=== PATIENT | male | born 1980 | race Two or more races ===

== ENCOUNTER 2022-04-26 23:06 | Emergency (ER) | payer OTHER, SELFPAY ==
--- NOTE | ~2022-04-26 | XR_ITS ---
EXAMINATION: XR KNEE, RIGHT CLINICAL INFORMATION: Pain COMPARISON: None TECHNIQUE: Four views of the right knee. FINDINGS: No fracture or dislocation. Small joint effusion. Alignment is anatomic. Joint spaces are well maintained. No abnormal soft tissue calcification. XR/XR knee RT 2V IMPRESSION: No acute fracture or dislocation. Small knee joint effusion.
[2022-04-26 23:11] VITALS: BP 146/81; PULSE 74; RESP 16; TEMP 36.5; O2SAT 97; BMI 26.6
--- NOTE | 2022-04-27 04:51 | ED.EXTPRO ---
HPI - Extremity Problem General Chief complaint: Extremity Problem Stated complaint: post op, pinching pain in site Time Seen by Provider: 04/27/22 01:20 Source: patient Mode of arrival: wheelchair Limitations: no limitations History of Present Illness HPI Narrative: Patient comes to the emergency room complaining of right knee pain. States that he has had pain for for 5 months continuously. Patient states that in [place] he had an knee surgery done. Since then he has been hurting. Patient denies any recent injury or fall. Patient states that he moved from [place] approximately 1 month ago. Patient denies any fever chills. Related Data Previous Rx's Medication Instructions Recorded ibuprofen 400 mg tablet 400 mg PO TID PRN pain #20 tabs 04/27/22 Allergies Allergy/AdvReac Type Severity Reaction Status Date / Time shellfish derived Allergy Unknown UNKNOWN Unverified 05/12/20 15:15 [SHELLFISH DERIVED] PILESPSLINE Allergy Unknown UNKNOWN Uncoded 05/12/20 15:15 Review of Systems Review of Systems: Constitutional : No Weight loss, No Fever, No Chills, No Night Sweats, No Fatigue, No Malaise ENT/Mouth : No Hearing loss, No Ear Pain, No Nasal Congestion, No Sinus Pain, No Hoarseness, No sore throat, No Rhinorrhea, No Swallowing Difficulty Eyes: No Eye Pain, No Swelling, No Redness, No Foreign Body, No Discharge, No Vision Changes Cardiovascular : No Chest Pain, No SOB, No Dyspnea on Exertion, No Orthopnea, No Edema, No Palpitations Respiratory : No Cough, No Sputum, No Wheezing, No Smoke Exposure, No Dyspnea Gastrointestinal : No Nausea, No Vomiting, No Diarrhea, No Constipation, No abdominal Pain, No Hematochezia, No Melena Genitourinary : no irregular bleeding, No Dysuria, No Urinary Frequency, No Hematuria, No Urinary Incontinence, No Urgency, No Flank Pain, No Urinary Flow Changes, No Hesitancy Musculoskeletal : Complaining of chronic right knee pain, No Myalgias, No Joint Swelling Skin : No Skin Lesions, No rash Neuro : No Weakness, No Numbness, No Paresthesias, No Loss of Consciousness, No Dizziness, No Headache Psych : No Anxiety/Panic, No Depression, No SI/HI/AH/VH, No Social Issues, Heme/Lymph: No Bruising, No Bleeding,No Lymphadenopathy Endocrine : No Polyuria, No Polydipsia, No Temperature Intolerance ON LICENSE OF [facility] Social History Social History Advance Directives: No Advance Directives Information Provided: Yes Physical Exam Vital Signs: Vital Signs: Last Vital Signs Temp 97.7 F 04/26/22 23:11 Pulse 74 04/26/22 23:11 Resp 16 04/26/22 23:11 BP 146/81 H 04/26/22 23:11 Pulse Ox 97 04/26/22 23:11 O2 Del Method 04/26/22 23:11 BMI result Body Mass Index 26.6 Const: Other: Appearance: Alert. Oriented X3. No acute distress. Eyes: Pupils equal, round and reactive to light. ENT: Pharynx normal. Neck: Normal inspection. Neck supple. No lymph nodes noted. No crepitus CVS: Normal heart rate and rhythm. Pulses normal. Normal S1 and S2 Respiratory: No respiratory distress. Breath sounds normal. No Wheezing. No rales Abdomen: Soft and nontender. No rigidity. No distention. Skin: Skin warm and dry. Normal skin color. Normal skin turgor. Extremities: No lower extremity edema. Patient's right knee is mildly swollen. Patient is able to flex and extend the knee with normal range of motion, no erythema, no additional warmth, no significant pain to palpation over the knee. Neuro: Oriented X 3. No motor deficit. No sensory deficit. Moving all extremities. No slurred speech. CN 2 through 12 grossly intact Psych: calm, cooperative, normal affect Course Course Course Narrative: Based on physical exam, septic joint is not suspected. This has been going on for approximately 5 months now. I discussed with the patient that it is likely that he will need another MRI, and orthopedics follow-up and possibly physical therapy. Patient given the phone number for Orthopedics. At this time, there was not enough fluid to be drained from the knee. MDM - Extremity (Nontraumatic) Imaging Data Knee x-ray: Radiologist's impression: FINDINGS: No fracture or dislocation. Small joint effusion. Alignment is anatomic. Joint spaces are well maintained. No abnormal soft tissue calcification.? XR/XR knee RT 2V IMPRESSION: No acute fracture or dislocation. Small knee joint effusion. Discharge Plan Discharge Clinical Impression: Chronic pain of right knee Patient Disposition: Home, Self-Care Instructions: Knee Pain (ED), Arthralgia (ED) Additional Instructions: Please follow-up with your primary care physician tomorrow. If you have any worsening or new symptoms, please return to the emergency room or call 911 Prescriptions: New ibuprofen 400 mg tablet 400 mg PO TID PRN (Reason: pain) Qty: 20 0RF Referrals: Fredis Fortune PA-C [Physician [facility]] - 3 days
== END 2022-04-27 05:02 | disposition home or self-care (01) ==
PROVIDERS: Emergency Provider Emergency Medicine; PCP Internal Medicine
DX: M25.561 Pain in right knee (principal); Z79.899 Other long term (current) drug therapy
CPT/HCPCS: 73560; 99283

== ENCOUNTER 2022-05-10 | Outpatient (REF) | payer OTHER, SELFPAY ==
--- NOTE | ~2022-05-10 | XR_ITS ---
EXAMINATION: XR KNEE AP STANDING XR KNEE, RIGHT CLINICAL INFORMATION: Right knee pain COMPARISON: Radiographs right knee 04/27/2022 TECHNIQUE: Standing AP view of both knees is performed along with axial patellar view of the right knee. FINDINGS: Bony mineralization appears normal. There is borderline narrowing right medial knee joint compartment. No subchondral sclerosis or erosive change or chondrocalcinosis. Axial view right patella shows no joint narrowing or lateralization or tilting. AP view left knee is unremarkable. XR/XR knee RT 1V IMPRESSION: -Borderline narrowing right medial knee joint compartment. -No erosive change, subchondral sclerosis, or chondrocalcinosis.
--- NOTE | ~2022-05-10 | XR_ITS ---
EXAMINATION: XR KNEE AP STANDING XR KNEE, RIGHT CLINICAL INFORMATION: Right knee pain COMPARISON: Radiographs right knee 04/27/2022 TECHNIQUE: Standing AP view of both knees is performed along with axial patellar view of the right knee. FINDINGS: Bony mineralization appears normal. There is borderline narrowing right medial knee joint compartment. No subchondral sclerosis or erosive change or chondrocalcinosis. Axial view right patella shows no joint narrowing or lateralization or tilting. AP view left knee is unremarkable. XR/XR knee standing BI IMPRESSION: -Borderline narrowing right medial knee joint compartment. -No erosive change, subchondral sclerosis, or chondrocalcinosis.
== END 2022-05-10 00:01 | disposition home or self-care (01) ==
LOC: HO.HOSX
PROVIDERS: Visit Provider Physician Assistant
DX: M23.91 Unspecified internal derangement of right knee (principal)
CPT/HCPCS: 73560; 73565; 99202

== ENCOUNTER → 2022-06-13 14:45 | Outpatient (BNVA) | payer OTHER, SELFPAY | PROVIDERS: PCP Internal Medicine; Visit Provider Anesthesiology | DX: M23.91 Unspecified internal derangement of right knee (principal); M17.11 Unilateral primary osteoarthritis, right knee; M25.561 Pain in right knee | CPT/HCPCS: 99202 ==

== ENCOUNTER 2022-06-27 13:00 | Outpatient (RCR) | payer MEDICAID, OTHER, SELFPAY ==
--- NOTE | 2022-06-05 13:07 | MHC.PT.EP ---
[facility] [place] Office [place] Office [place] Office [address] [phone] F: [phone] F: [phone] F: [phone] F: [phone] Physical Therapy Plan of Care Date of Evaluation: Date of Surgery: Diagnosis: INTERNAL DERANGEMENT Rt KNEE Assessment: 42 YO MALE REF TO PT FOR Rt KNEE INTERNAL DERANGEMENT, W INITIAL TRAUMA IN 2004 AND ARTHROSCOPIC PROCEDURE IN [place] 4-5 MONTHS AGO. HE PRESENTS THIS AM IN A Rt KNEE DON [facility] BRACE. 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 OBJECTIVE FINDINGS: LIMITED ROM Rt KNEE, DECR HIP FLEXIB, (+) LUMBOPELVIC/ LEFT LE STRENGTH DEFICITS, DECR Rt LE PROPRIOCEPTION, AND PAIN IN GENERAL Rt PERIPATELLAR AREA AND INFRAPATELLAR REGION. FUNCTIONALLY, Pt HAS DECR NORA TO STANDING, WALKING > 10 MIN, SQUATTING, AND STAIR MGMT. Pt WOULD BENEFIT FROM PT AT THIS TIME TO DEV A PROGR HEP, ADDRESS PAIN MGMT, IMPROVE STRENGTH AND STABILITY, AND OBTAINING MAXIMAL LEVEL OF FUNCTIONAL INDEPENDENCE. Frequency and Duration: The patient will be seen 2 x WK x 5 WKS Short Term Goals: *Pt'S Rt KNEE PAIN DECR TO 2-3/10 *Pt DEMON FULL Rt KNEE FLEX AND KNEE FLEX TO 120* *IMPROVE EFFICIENCY OF GAIT MECH ON LEVEL AND STAIRS Care Home Goals: *Pt INDEP W PROGR HEP AND SELF-SX MGMT TECH *Pt RESUME REG ADLs AND RTW, EVIDENT W IMPROVED LEFI SCORE *Pt DEMON WFL FUNCTIONAL SQUAT *Pt IMPROVE Rt LE STRENGTH BY AT LEAST 1/2 TO 1 GRADE Treatment Plan: Modalities to reduce pain, spasms and effusion. Manual therapy to restore motion and function. Therapeutic exercise to improve strength and flexibility. Neuromuscular re-education for posture and balance. Therapeutic activities to return to functional activities of daily living. Electronically signed by: EVGENY ROBERTSON,PT Please sign and return to therapist. Thank you for your referral.
--- NOTE | 2022-07-09 13:19 | MHC.PT.DC ---
[facility] [place] Office [place] Office [place] Office [address] [phone] F: [phone] F: [phone] F: [phone] F: [phone] Physical Therapy Discharge Report Diagnosis: INTERNAL DERANGEMENT Rt KNEE Date of Surgery: Date of Evaluation: 06/05/22 Date of Discharge: 07/09/22 Treatments to Date: 5 Cancellations to Date: No Shows to Date: 4 Discharge Status: Improved Function Patient Elected to Stop Visit Non-compliance Discharge Summary: IN PT WE WERE FOCUSED ON THER EXER TO INCR Rt LUMBOPELVIC STAB/ GLUTE/ QUAD STRENGTH, AND Pt WAS ABLE TO PERFORM THESE EXER W/O Rt KNEE SXS OR PFPS- HE DEMON MORE EFFICIENT GAIT AND FUNCT MOB DESPITE ELEV SUBJECTIVE PAIN- Pt DID NOT ATTEND LAST FEW SCHED PT APPTS, DESPITE PHONE MESSAGES AND REMINDERS- HE DID NOT MEET HIS GOALS AT THIS TIME Electronically signed by: Nara Aceves Please sign and return to therapist. Thank you for your referral.
== END 2022-07-09 13:20 | disposition home or self-care (01) ==
LOC: HO.PT 13:00
PROVIDERS: PCP Internal Medicine Geriatric Medicine; Visit Provider Physician Assistant
DX: M23.91 Unspecified internal derangement of right knee (principal)
CPT/HCPCS: 97110; 97140; 97162; 97530

== ENCOUNTER 2022-07-10 06:15 | Outpatient (REF) | payer MEDICAID, SELFPAY | END 2022-07-10 06:16 | disposition home or self-care (01) | LOC: CF 06:15 | PROVIDERS: Visit Provider Anesthesiology | DX: M23.91 Unspecified internal derangement of right knee (principal); M17.11 Unilateral primary osteoarthritis, right knee | CPT/HCPCS: 64447; 76942 ==

== ENCOUNTER → 2022-08-14 13:04 | Outpatient (BNVA) | payer MEDICAID, SELFPAY | PROVIDERS: PCP Internal Medicine Geriatric Medicine; Visit Provider Physician Assistant | DX: M25.562 Pain in left knee (principal); M25.561 Pain in right knee; G89.29 Other chronic pain | CPT/HCPCS: 99202 ==

== ENCOUNTER 2022-08-19 16:29 | Emergency (ER) | payer MEDICAID, SELFPAY ==
[2022-08-19 16:32] VITALS: BP 143/87; PULSE 94; RESP 18; TEMP 36.8; O2SAT 98; BMI 29.9
--- NOTE | 2022-08-19 17:14 | ED.URI ---
HPI - URI/Sore Throat General Chief Complaint: Upper Respiratory Symptoms Stated Complaint: abd pain, coughing Time Seen by Provider: 08/19/22 17:13 Source: patient and family Mode of arrival: ambulatory Limitations: no limitations History of Present Illness HPI Narrative: 42-year-old male presents with upper respiratory symptoms, coughing, nausea, and episode of vomiting, and right-sided rib pain. Patient states that he thinks that he broke some ribs while coughing. He does report marijuana use, and coughs because of smoking. He does not report fevers or chills, abdominal pain or distention, chest pressure or palpitations, or weakness. MD elicited complaint: cough, rhinorrhea and nasal congestion Onset (ago): day(s) Consistency: progressively worsening Severity: mild Description of mucous: clear Able to tolerate fluids by mouth: Yes Exacerbating factors: deep breaths Relieving factors: nothing Associated symptoms: rhinorrhea, nasal congestion, cough and chest pain Treatments prior to arrival: none Related Data Home Medications Medication Instructions Recorded Confirmed albuterol sulfate 90 mcg/actuation 2 puff inhalation Q4-6H PRN 08/14/22 aerosol inhaler fluticasone propionate 44 2 puff inhalation BID 08/14/22 mcg/actuation HFA aerosol inhaler (Flovent HFA) Previous Rx's Medication Instructions Recorded ibuprofen 800 mg tablet 800 mg PO Q8H PRN for pain #90 tabs 06/12/22 Allergies Allergy/AdvReac Type Severity Reaction Status Date / Time shellfish derived Allergy Unknown UNKNOWN Unverified 08/14/22 13:19 [SHELLFISH DERIVED] PILESPSLINE Allergy Unknown UNKNOWN Uncoded 08/14/22 13:19 Review of Systems Review of Systems: Constitutional: No fever, no Chills, positive fatigue, positive Malaise ENT/Mouth: Now sore throat, positive runny nose Eyes: No Discharge Cardiovascular: No Chest wall Pain, No SOB Respiratory: Positive Cough, No Sputum, No Wheezing, No Dyspnea Gastrointestinal: No Nausea, No Vomiting, No Diarrhea Musculoskeletal: positive Myalgia Skin: No rash Neuro: No Headache Yes all other systems are reviewed and are negative [facility] Past Medical History Attestation statement: The following information was validated with the patient. 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 Oriented X3. No acute distress. Eyes: Pupils equal, round and reactive to light. ENT: Pharynx normal. Neck: Normal inspection. Neck supple. CVS: Normal heart rate and rhythm. Pulses normal. Respiratory: No respiratory distress. Lung sounds clear to auscultation all lobes. Abdomen: Soft and nontender. Skin: Skin warm and dry. Normal skin color. Normal skin turgor. Extremities: No lower extremity edema. Bilateral lower extremity orthotics or chronic knee pain. Strength 5/5 to all extremities. Neuro: No motor deficit. No sensory deficit. Cranial nerves 2-12 intact. Course Course Course Narrative: 42-year-old male presents with upper respiratory symptoms, an episode of vomiting, and right-sided chest wall pain. Patient feels like he broke ribs from coughing. Does report marijuana use, and states that he does not drink water. Will order chest x-ray and test for COVID influenza RSV. I did discuss the importance of water 18:26 chest x-ray is negative for acute findings. COVID influenza RSV are negative. Plan of care to discharge home supportive measures. Patient verbalized understanding of and agrees to plan of care discharge home. Verbalized understanding of signs and symptoms indicating need for emergent intervention. Medications Administered Discontinued Medications Generic Name Dose Route Start Last Admin Trade Name Freq PRN Reason Stop Dose Admin Acetaminophen 650 mg 08/19/22 17:29 08/19/22 18:04 Acetaminophen 325 Mg Tablet PO 08/19/22 17:30 650 mg ONCE ONE Administration Medical Decision Making Differential Diagnosis Differential Diagnoses: The differential diagnosis associated with the presentation includes COVID, influenza, pneumonia, RSV, rib fracture, pneumothorax, hemothorax Admission/Observation Consideration of admission/observation: Escalation of care including admission/observation considered If patient has acute findings will consider Lab Data MDM Lab Attestation statement: I reviewed the patient's lab results. Labs: Lab Results 08/19/22 Range/Units 17:25 Influenza Type A (PCR) NEGATIVE (Negative) Influenza Type B (PCR) NEGATIVE (Negative) RSV RNA Qual (PCR) NEGATIVE (Negative) SARS-CoV-2 RNA (RT-PCR) NEGATIVE (Negative) Independent Interpretation I performed an independent interpretation of an: Plain X-Ray Radiology Impression Discussion of test interpretation with radiology: I have reviewed the radiologist's reading. Radiologist Impression: EXAMINATION: XR RIBS, BILATERAL CLINICAL INFORMATION: Rib pain. Right-sided pain. COMPARISON: None TECHNIQUE: 3 views of the bilateral ribs were obtained along with a frontal view of the chest. FINDINGS: Normal appearance of the cardiomediastinal structures. No effusions or pneumothoraces. No focal pulmonary consolidation. Normal pattern of pulmonary vasculature. RIBS: No rib fractures or suspicious rib lesions identified. XR/XR ribs BI min 4V w CXR1V IMPRESSION: 1.? No acute cardiopulmonary abnormalities. 2.? No rib fractures identified. Independent Historian Clinical information obtained from an independent historian. History obtained from or confirmed by: Spouse Discharge Plan Discharge Clinical Impression: Viral infection Patient Disposition: Home, Self-Care Instructions: Viral Syndrome (ED) Additional Instructions: You were evaluated for upper respiratory symptoms. Your COVID influenza RSV test are negative. Your chest x-ray is negative for rib fracture This illness may take months to resolve. Alternate Tylenol 650 mg every 6 hours and Motrin 600 mg every 6 hours as needed for pain and fever management. Write down what time he take these medications to prevent accidental overdose. Drink plenty of fluids. Please drink more water. Thank you for choosing this emergency department for evaluation. Please follow-up with primary care physician as needed. Return to the emergency department for any new, concerning, or worsening symptoms. Prescriptions: No Action ibuprofen 800 mg tablet 800 mg PO Q8H PRN (Reason: for pain) Qty: 90 0RF fluticasone propionate [Flovent HFA] 44 mcg/actuation HFA aerosol inhaler 2 puff inhalation BID Rx Instructions: administer with spacer albuterol sulfate 90 mcg/actuation HFA aerosol inhaler 2 puff inhalation Q4-6H PRN Interventions: ED Discharge Assessment Last Done: 08/19/22 18:59 Discharge Date/Time: 08/19/22 19:00
--- NOTE | 2022-08-19 18:05 | PC.NURSE ---
patient a&ox3, medicated for rt flank pain 05/05, family at bedside, will continue to monitor
[2022-08-19 18:10] LABS: Influenza A PCR NEGATIVE (Negative); Influenza B PCR NEGATIVE (Negative); Resp Syncy Virus RNA Qual PCR NEGATIVE (Negative); SARS COV2 PCR INHOUSE NEGATIVE (Negative)
--- NOTE | 2022-08-19 19:00 | PC.NURSE ---
patients pain reduced to 3/10 prior to discharge as it was not assessable
== END 2022-08-19 19:00 | disposition home or self-care (01) ==
PROVIDERS: Nurse Practitioner Family; Emergency Provider Internal Medicine
DX: B34.9 Viral infection, unspecified (principal); R05.9 Cough, unspecified; Z20.822 Contact with and (suspected) exposure to COVID-19; F17.210 Nicotine dependence, cigarettes, uncomplicated; Z71.6 Tobacco abuse counseling; Z79.899 Other long term (current) drug therapy
CPT/HCPCS: 0241U; 71111; 99283

== ENCOUNTER → 2022-09-05 15:47 | Outpatient (BNVA) | payer MEDICAID, SELFPAY | PROVIDERS: Visit Provider Anesthesiology | DX: M23.91 Unspecified internal derangement of right knee (principal); M17.11 Unilateral primary osteoarthritis, right knee; M25.561 Pain in right knee; M46.1 Sacroiliitis, not elsewhere classified; M53.3 Sacrococcygeal disorders, not elsewhere classified | CPT/HCPCS: 99212 ==

== ENCOUNTER 2022-09-11 06:32 | Outpatient (REF) | payer MEDICAID, SELFPAY ==
--- NOTE | ~2022-09-11 | FL_ITS ---
EXAMINATION: XR FLUOROSCOPY WITH IMAGES CLINICAL INFORMATION: Sacrococcygeal disorders COMPARISON: None. TECHNIQUE: Fluoroscopy Supervised By: Dr. Vu Cabello. Fluoroscopy Time: 0.3. Cumulative Dose: 4.83 mGy. DAP: 1.31 Gycm2. Images: 2. FL/FL guidance in treatment room FINDINGS/IMPRESSION: Fluoroscopic spot images showing placement of the needle and contrast injection into the sacroiliac joint. The films are labeled right and left.
== END 2022-09-11 06:33 | disposition home or self-care (01) ==
LOC: CF 06:32
PROVIDERS: Visit Provider Anesthesiology
DX: M46.1 Sacroiliitis, not elsewhere classified (principal); M53.3 Sacrococcygeal disorders, not elsewhere classified
CPT/HCPCS: 27096

== ENCOUNTER → 2022-09-13 10:39 | Outpatient (BNVA) | payer MEDICAID, SELFPAY | PROVIDERS: Visit Provider Anesthesiology | DX: Z13.89 Encounter for screening for other disorder (principal) ==

== ENCOUNTER 2022-09-27 19:05 | Outpatient (REF) | payer MEDICAID, SELFPAY ==
--- NOTE | ~2022-09-27 | MR_ITS ---
MR LUMBAR SPINE WITHOUT IV CONTRAST CLINICAL INFORMATION: Spondylosis without myelopathy or radiculopathy/lumbar region. COMPARISON: None available. TECHNIQUE: MRI of the lumbar spine was obtained using routine sequences without contrast. FINDINGS: There are 5 nonrib-bearing lumbar-type vertebral bodies. Lumbar alignment is normal. The vertebral body heights are maintained. Disc lines are preserved and the discs remain well-hydrated. There is no bone marrow edema. There are no acute fractures. Conus terminates at the L1 level. Small chronic lower endplate Schmorl's nodes at T12 and L1. Small right renal cyst. Hypertrophic degenerative changes across the SI joints bilaterally. L1-L2: Disc contour is normal. No central canal stenosis and no foraminal stenosis. L2-L3: Disc contour is normal. Mild bilateral facet arthropathy and ligamentum flavum thickening. No central canal stenosis and no foraminal stenosis. L3-L4: Small annular disc bulge and mild bilateral facet arthropathy. No central canal stenosis and no foraminal stenosis. L4-L5: Diffuse annular disc bulge and moderate bilateral facet arthropathy and ligamentum flavum thickening. No central canal stenosis. Mild foraminal encroachment bilaterally. L5-S1: Diffuse annular disc bulge and moderate bilateral facet arthropathy. No central canal stenosis. There is mild foraminal encroachment bilaterally. MR/MR lumbar spine wo con IMPRESSION: Mild to moderate spondylitic changes throughout the lumbar spine. There is no severe central canal stenosis and there is no severe foraminal stenosis within the lumbar spine.
== END 2022-09-27 19:06 | disposition home or self-care (01) ==
LOC: HO.MRI 19:05
PROVIDERS: Visit Provider Anesthesiology
DX: M47.816 Spondylosis without myelopathy or radiculopathy, lumbar region (principal)
CPT/HCPCS: 72148

== ENCOUNTER 2023-07-30 10:07 | Outpatient (REF) | payer MEDICAID, SELFPAY ==
[2023-07-30 10:56] LABS: MANUAL DIFF FLAG NO
[2023-07-30 11:10] LABS: Basophils Absolute Auto 0.1 X10*3/uL (0.0-0.2); Basophils Percent Auto 0.8 % (0-2); Eosinophils Absolute Auto 0.7 X10*3/uL (0.0-0.4); Eosinophils Percent Auto 6.3 % (0-4); Hematocrit 43.2 % (42.0-52.0); Hemoglobin 14.1 g/dl (14.0-18.0); Imm Gran Abs Auto 0.06 X10*3/uL (0.00-0.03); Imm Gran Pct Auto 0.5 % (0.0-0.4); Lymphocytes Absolute Auto 3.9 X10*3/uL (1.2-4.9); Lymphocytes Percent Auto 33.2 % (20-40); Mean Corpuscular HGB Conc 32.6 g/dl (31.0-36.0); Mean Corpuscular Hemoglobin 27.4 pg (27.0-33.0); Mean Corpuscular Volume 83.9 fL (80.0-98.0); Mean Platelet Volume 9.1 fL (9.4-12.4); Monocytes Absolute Auto 1.4 X10*3/uL (0.1-1.2); Monocytes Percent Auto 11.6 % (2-11); Neutrophils Absolute Auto 5.6 x10*3/uL (2.0-8.3); Neutrophils Percent Auto 47.6 % (45-73); Platelet Count 373 X10*3/uL (160-400); Red Blood Count 5.15 X10*6/uL (4.60-5.80); Red Cell Distribution Width 12.5 % (11.0-16.0); White Blood Count 11.8 X10*3/uL (4.8-10.8)
[2023-07-30 14:11] LABS: TSH reflex Free T4 2.37 uIU/mL (0.32-4.0)
[2023-08-05 12:18] LABS: Testosterone, Free 30.6 pg/mL (35.0-155.0); Testosterone, Total 243 ng/dL (250-1100)
[2023-08-07 21:04] LABS: Strongyloides Antibody IgG NEGATIVE
== END 2023-07-30 10:08 | disposition home or self-care (01) ==
LOC: HO.HHCL 10:07
PROVIDERS: Visit Provider Nurse Practitioner Primary Care
DX: L60.8 Other nail disorders (principal); N52.9 Male erectile dysfunction, unspecified; D72.10 Eosinophilia, unspecified
CPT/HCPCS: 36415; 84402; 84403; 84443; 85025; 86682

== ENCOUNTER 2023-08-09 13:48 | Outpatient (AMB) | payer MEDICAID, SELFPAY ==
--- NOTE | 2023-08-09 13:59 | MHC.OFFVIS ---
Intake Vital Signs 08/09/23 14:01 Height 5 ft 6 in Weight 180 lb BMI 29.0 Intake Visit Reasons: New prob-B/L hand numbness Intake Note: Jeremi 43 yr old male who is left hand dominant presents today for a new problem visit for bilateral hand numbness and tingling since 2016. States he has tried O.T in the past with no help. States symptoms worsen in the night time. States his left hand is worse at the moment . NO EMG done, Allergies shellfish derived [SHELLFISH DERIVED] Allergy (Unknown, Verified 08/09/23 14:01) UNKNOWN PILESPSLINE Allergy (Unknown, Uncoded 08/09/23 14:01) UNKNOWN HPI New prob-B/L hand numbness HPI Details 43-year-old left hand dominant male who presents in the office today for an evaluation of bilateral hand numbness in the middle, ring, and little digits. The patient reports numbness and tingling since 2016. He states the pain increases at night. He does confirm a history of multiple herniated disc in the C-spine from an accident when a tree fell on him. 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 Negative Tinel?s at the carpal tunnel. Positive Phalen?s. Able to perform full finger flexion, extension, abduction, adduction, finger cross, okay sign, and thumbs up without deficit. Able to make a closed fist. Capillary refill is brisk. Radial pulse intact. Assessment & Plan Assessment & Plan (1) Carpal tunnel syndrome of right wrist: Code(s): G56.01 - Carpal tunnel syndrome, right upper limb (2) Left carpal tunnel syndrome: Code(s): G56.02 - Carpal tunnel syndrome, left upper limb Plan Mr. Malia Gurrola is a 43-year-old left hand dominant male who presents in the office today for an evaluation of bilateral hand numbness in the middle, ring, and little digits. The patient reports numbness and tingling since 2016. He states the pain increases at night. He does confirm a history of herniated discs in the C-spine from an accident when a tree fell on him. The patient will be referred for an EMG study to be performed by Dr. Coffman to further evaluate the carpal tunnel and cubital tunnel involvement. Follow up will be after the EMG is obtained, or sooner if needed. Orders: Orders NE electromyogram (EMG) Today G56.01 - Carpal tunnel syndrome, right upper limb Patient Instructions: Scribed for Shante Oakley PA-C by Carmen Hernandez medical office professional instructor, on 08/09/2023 at 1:53 pm, EST. Coding Level of Care Code Est Pt Level 4 (44198) Diagnoses Carpal tunnel syndrome of right wrist G56.01 Left carpal tunnel syndrome G56.02
[2023-08-09 14:01] VITALS: BMI 29.0
== END 2023-08-09 14:07 | disposition home or self-care (01) ==
PROVIDERS: Visit Provider Physician Assistant
DX: G56.01 Carpal tunnel syndrome, right upper limb (principal); G56.02 Carpal tunnel syndrome, left upper limb
CPT/HCPCS: 99214

== ENCOUNTER → 2023-08-09 13:48 | Outpatient (BNVA) | payer MEDICAID, SELFPAY | PROVIDERS: Visit Provider Physician Assistant | DX: G56.03 Carpal tunnel syndrome, bilateral upper limbs (principal) | CPT/HCPCS: 99212 ==

== ENCOUNTER 2023-09-20 10:02 | Outpatient (REF) | payer MEDICAID, SELFPAY ==
--- NOTE | 2023-09-20 10:05 | EMG_ITS ---
Chief complaint: Chronic left-sided neck pain going down to the arm, numbness on bilateral hands Reason for referral: Evaluate for Carpal Tunnel Syndrome versus radiculopathy Referred by: Shante EVANS Procedure done: Bilateral upper extremities NCS/EMG Precautions and/or limitations: None The limb temperature was monitored continuously and remained between 32-36 degrees C during the performance of the NCS. Nerve Conduction Studies Anti Sensory Summary Table ?Stim Site NR Onset (ms) Norm Onset (ms) Peak (ms) Norm Peak (ms) O-P Amp (?V) Norm O-P Amp Site1 Site2 Delta-0 (ms) Dist (cm) Stuart (m/s) Norm Stuart (m/s) Left Median Anti Sensory (2nd Digit) Wrist ? 2.4 3.1 <3.6 34.1 >10 Wrist 2nd Digit 2.4 14.0 58 Right Median Anti Sensory (2nd Digit) Wrist ? 2.3 2.9 <3.6 36.4 >10 Wrist 2nd Digit 2.3 14.0 61 Left Ulnar Anti Sensory (5th Digit) Wrist ? 2.0 2.9 <3.7 15.7 >15.0 Wrist 5th Digit 2.0 14.0 70 Right Ulnar Anti Sensory (5th Digit) Wrist ? 1.9 2.8 <3.7 24.7 >15.0 Wrist 5th Digit 1.9 14.0 74 Motor Summary Table ?Stim Site NR Onset (ms) Norm Onset (ms) O-P Amp (mV) Norm O-P Amp iAmp (mV) Amp (1st) (%) Site1 Site2 Delta-0 (ms) Dist (cm) Stuart (m/s) Norm Stuart (m/s) Left Median Motor (Abd Poll Brev) Wrist ? 3.3 <3.9 8.4 >4.5 10.2 100.0 Elbow Wrist 3.8 20.0 53 >45 Elbow ? 7.1 8.3 9.9 98.8 Right Median Motor (Abd Poll Brev) Wrist ? 3.1 <3.9 10.6 >4.5 13.1 100.0 Elbow Wrist 4.2 21.0 50 >45 Elbow ? 7.3 9.9 12.5 93.4 Left Ulnar Motor (Abd Dig Minimi) Wrist ? 2.6 <3.0 7.0 >5 8.3 100.0 B Elbow Wrist 3.4 19.0 56 >45 B Elbow ? 6.0 6.4 7.7 91.4 A Elbow B Elbow 1.6 10.0 63 >45 A Elbow ? 7.6 6.6 8.1 94.3 Right Ulnar Motor (Abd Dig Minimi) Wrist ? 2.2 <3.0 9.4 >5 11.3 100.0 B Elbow Wrist 3.7 21.5 58 >45 B Elbow ? 5.9 9.1 10.9 96.8 A Elbow B Elbow 1.3 10.0 77 >45 A Elbow ? 7.2 9.2 11.8 97.9 Comparison Summary Table ?Stim Site NR Peak (ms) Norm Peak (ms) P-T Amp (?V) Site1 Site2 Delta-P (ms) Norm Delta (ms) Left Median/Radial Dig I Comparison (Digit 1 - 10cm) Median ? 2.6 <2.9 45.6 Median Radial 0.2 Radial ? 2.4 <2.8 18.7 EMG ?Side Muscle Nerve Root Ins Act Fibs Psw Amp Dur Poly Recrt Int Pat Comment Right 1stDorInt Ulnar C8-T1 Nml Nml Nml Nml Nml 0 Nml Complete Right FlexCarRad Median C6-7 Nml Nml Nml Nml Nml 0 Nml Complete Right Biceps Musculocut C5-6 Nml Nml Nml Nml Nml 0 Nml Complete Right Triceps Radial C6-7-8 Nml Nml Nml Nml Nml 0 Nml Complete Right Deltoid Axillary C5-6 Nml Nml Nml Nml Nml 0 Nml Complete Left 1stDorInt Ulnar C8-T1 Nml Nml Nml Nml Nml 0 Nml Complete Left FlexCarRad Median C6-7 Nml Nml Nml Nml Nml 0 Nml Complete Left Biceps Musculocut C5-6 Nml Nml Nml Nml Nml 0 Nml Complete Left Triceps Radial C6-7-8 Nml Nml Nml Nml Nml 0 Nml Complete Left Deltoid Axillary C5-6 Nml Nml Nml Nml Nml 0 Nml Complete FINDINGS: All motor and sensory nerves tested showed normal latencies, amplitudes and conduction velocities. Concentric needle EMG was performed in selected muscles of the bilateral upper extremities. Study did not reveal signs of electric abnormalities as shown in the table below. IMPRESSION: 1. This is a normal study. 2. There is no electrodiagnostic evidence for median neuropathy, ulnar neuropathy, brachial plexopathy, or cervical radiculopathy. Thank you for your kind referral. Kirsten Carcamo MD, OSEI Board Certified, [place] Board [employer] and Rehabilitation (ABPMR) Board Certified, [place] Board of Electrodiagnostic Medicine (ABEM) CODIN 71970 x 2 MTDD
== END 2023-09-20 10:03 | disposition home or self-care (01) ==
LOC: HO.NEURO 10:02
PROVIDERS: Visit Provider Physician Assistant
DX: G56.01 Carpal tunnel syndrome, right upper limb (principal)
CPT/HCPCS: 95886; 95911

== ENCOUNTER → 2023-09-20 10:05 | Outpatient (BNV) | payer MEDICAID, SELFPAY | PROVIDERS: Visit Provider Physical Medicine & Rehabilitation | DX: M79.641 Pain in right hand (principal); M79.642 Pain in left hand; R20.0 Anesthesia of skin | CPT/HCPCS: 95886; 95911 ==

== ENCOUNTER 2024-06-25 13:42 | Outpatient (AMB) | payer MEDICAID, SELFPAY ==
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
[2024-06-25 15:04] VITALS: BMI 29.0
== END 2024-06-25 15:18 | disposition home or self-care (01) ==
LOC: HO.HOS 13:42
PROVIDERS: Visit Provider Physician Assistant
DX: M25.562 Pain in left knee (principal); G89.29 Other chronic pain; M25.561 Pain in right knee
CPT/HCPCS: 99213

== ENCOUNTER → 2024-06-25 13:42 | Outpatient (BNVA) | payer MEDICAID, SELFPAY | PROVIDERS: Visit Provider Physician Assistant | DX: M25.561 Pain in right knee (principal); M25.562 Pain in left knee; G89.29 Other chronic pain | CPT/HCPCS: 99212 ==

== ENCOUNTER 2024-11-04 18:30 | Emergency (ER) | payer MEDICAID, SELFPAY ==
--- OUTSIDE RECORDS SUMMARY | 2024-11-04 18:55 | XMS_ITS | Encounter Summary ---
Author Organization [employer] Address [address] [facility] 7t [place] [address] Care Team Providers Care Slate Roofer Helper Name Role Phone Montserrat Maritza JARA Primary Care Provider [phone] Reason for Visit * Reason Onset Date Comments case back from lab 02/07/2023 Encounter Details Date Type Department Care Team (Late st Contact Info) Description 02/07/2023 Telephone [facility]ULT [facility] [address] [place] [address] Arian Sandhu, DDS [address] [place] [address] case back from lab Social History Tobacco Use Types Packs/Day Years Used Date Smoking Tobacco: Every Day Cigarettes 0.5 36.2 Started: 1988 Passive Smoke Exposure: Past Smokeless Tobacco: Never Alcohol Use Standard Drinks/Week Comments Never 0 (1 standard drink = 0.6 oz pur e alcohol) PHQ-2 Answer Date Recorded Patient Health Questionnaire-2 Score 0 09/28/2022 Depression Answer Date Recorded Patient Health Questionnaire-2 Score 0 09/28/2022 Sex and Gender Information Value Date Recorded Sex Assigned at Male 06/25/2022 10:14 AM EDT Legal Sex Male 10:14 AM EDT Gender Identity Male 06/25/2022 10:14 AM EDT Sexual Orientation Straight 12/14/2022 3: 08 PM EDT COVID-19 Exposure Response Date Recorded In the last 10 days, have yo u been in contact with someone who was confirmed or suspected to have Coronavirus/COVID-19? No / Unsure 02/05/2023 2:45 PM EDT documented as of this encounter Miscellaneous Notes * Telephone Encounter - Meghna Lange - 02/07/2023 10:59 AM EDT Patient is calling to confirm if case is back from lab DR documented in this encounter Plan of Treatment Upcoming Encounters Date Type Department Care Team (Late st Contact Info) Description 01/08/2025 2:30 PM EDT Office Visit [facility] MEDICINE [address] [place] [address] Maritza Mariano ANP [address] [place] [address] documented as of this encounter Visit Diagnoses Not on filedocumented in this encounter Care Teams Slate Roofer Helper Relationship Specialty Start Date End Date Maritza Mariano ANP [address] [place] [address] PCP - General Family Medicine 09/06/22 documented as of this encounter
--- OUTSIDE RECORDS SUMMARY | 2024-11-04 18:55 | XMS_ITS | Encounter Summary ---
Author Organization [employer] Address [address] [facility] 7t [place] [address] Care Team Providers Care Ferry Boat Captain Name Role Phone Maritza Mariano Primary Care Provider [phone] Reason for Visit * Reason Onset Date Comments Med Refill 11/08/2022 Encounter Details Date Type Department Care Team (Late st Contact Info) Description 11/08/2022 Telephone [facility] MEDICINE [address] [place] [address] Maritza Mariano ANP [address] [place] [address] Med Refill Social History Tobacco Use Types Packs/Day Years [...] suspected to have Coronavirus/COVID-19? No / Unsure 10/29/2022 1:53 PM EST documented as of this encounter Miscellaneous Notes * Telephone Encounter - Maribel Bejarano LPN - 11/08/2022 10:53 AM EDT Medication was sent to [id number] on 09/06/22 Qty: 90 with 1 refill. * Telephone Encounter - Bijal Ortiz - 11/08/2022 10:23 AM EDT Tc from pt requesting med refill for medication omeprazole OTC (PriLOSEC OTC) 20 MG EC tablet. documented in this encounter Plan of Treatment Upcoming Encounters Date Type Department Care Team (Late st Contact Info) Description 01/08/2025 2:30 PM EDT Office Visit [facility] MEDICINE [address] [place] [address] Maritza Mariano ANP [address] [place] [address] documented as of this encounter Visit Diagnoses Not on filedocumented in this encounter Care Teams Ferry Boat Captain Relationship Specialty Start Date End Date Maritza Mariano ANP [address] [place] [address] PCP - General Family Medicine 09/06/22 documented as of this encounter
--- OUTSIDE RECORDS SUMMARY | 2024-11-04 18:55 | XMS_ITS | Encounter Summary ---
Author Organization [employer] Address [address] [facility] 7t [place] [address] Care Team Providers Care Conceptor Name Role Phone Maritza Mariano Primary Care Provider [phone] Reason for Visit * Reason Comments Med Refill Encounter Details Date Type Department Care Team ([facility] st Contact Info) Description 09/09/2024 Refill [facility] MED[facility]INE [address] [place] [address] Maritza Mariano ANP [address] [place] [address] Erectile dysfunction, unspecified erectile dysfunction type Social History Tobacco Use Types Packs/Day Years Used Date Smoking Tobacco: Former Cigarettes 0.5 34.3 1 989 - 12/2022 Passive Smoke Exposure: Past Smokeless Tobacco: Current Comments:Vaping 5% Alcohol Use Standard Drinks/Week Comments Never 0 (1 standard drink = 0.6 oz pur e alcohol) Depression Answer Date Recorded Patient Health Questionnaire-9 Score 12 12/31/2023 Patient Health Questionnaire-9 Score 12 12/31/2023 Last PHQ-9: Questionnaire Data Not on file 0 12/31/2023 Housing Stability Answer Date Recorded What is your housing situation today? I have michelle cordoba 12/24/[address] you li ve. Do you have problems with any of the following? None of the above 12/24/2023 Food Insecurity Answer Date Recorded Within the past 12 months, y ou worried that your food would run out before you got money to buy more: Never True 12/24/2023 Within the past 12 months,th e food you bought just didn't last and you didn't have enough money to get more: Never True Transportation Answer Date Recorded In the past 12 months, has l ack of transportation kept you from medical appts, meetings, work or from getting things needed for daily living? No 12/24/2023 Utilities Answer Date Recorded In the past 12 months, has t he electric, gas, oil or water company threatened to shut off services in your home? No 12/24/2023 Depression Answer Date Recorded Patient Health Questionnaire-2 Score 2 12/31/2023 Internet Access Answer Date Recorded Internet Access Q1 Yes 07/27/2024 Internet Access Q2 Not on file 07/27/2024 Sex and Gender Information Value Date Recorded Sex Assigned at Male 06/25/2022 10:14 AM EDT Legal Sex Male 10:14 AM EDT Gender Identity Male 06/25/2022 10:14 AM EDT Sexual Orientation Straight 12/14/2022 3: 08 PM EDT documented as of this encounter Plan of Treatment Upcoming Encounters Date Type Department Care Team (Late st Contact Info) Description 01/08/2025 2:30 PM EDT Office Visit [facility] MEDICINE [address] [place] [phone] Maritza Mariano ANP [address] [place] [address] documented as of this encounter Visit Diagnoses Diagnosis Erectile dysfunction, unspecified erectile dysfunction type documented in this encounter Additional Health Concerns Assessment Noted Time PHQ-9 Depression Total Score: 12 024 3:12 PM EDT documented as of this encounter Care Teams Conceptor Relationship Specialty Start Date End Date Maritza Mariano ANP [address] [place] [phone] PCP - General Family Medicine 09/06/22 documented as of this encounter
--- OUTSIDE RECORDS SUMMARY | 2024-11-04 18:55 | XMS_ITS | Encounter Summary ---
Author Organization [employer] Address [address] [facility] 7t [place] [address] Care Team Providers Care Machinery Mechanic Name Role Phone Maritza Mariano Primary Care Provider [phone] Reason for Visit * Reason Comments Med Refill Encounter Details Date Type Department Care Team ([facility] st Contact Info) Description 12/04/[address] [facility] MEDICINE [address] [place] [address] Maritza Mariano ANP [address] [place] [address] Erectile dysfunction, unspecified erectile dysfunction type Social History Tobacco Use Types Packs/Day Years Used Date Smoking Tobacco: Every Day Cigarettes 0.5 36.2 Started: 1988 Passive Smoke Exposure: Past Smokeless Tobacco: Never Alcohol Use Standard Drinks/Week Comments Never 0 (1 standard drink = 0.6 oz pur e alcohol) PHQ-2 Answer Date Recorded Patient Health Questionnaire-2 Score 0 09/28/2022 Housing Stability Answer Date Recorded What is your housing situation today? I have michelle cordoba 06/20/[address] you li ve. Do you have problems with any of the following? None of the above 06/20/2023 Food Insecurity Answer Date Recorded Within the past 12 months, y ou worried that your food would run out before you got money to buy more: Never True 06/20/2023 Within the past 12 months,th e food you bought just didn't last and you didn't have enough money to get more: Never True Transportation Answer Date Recorded In the past 12 months, has l ack of transportation kept you from medical appts, meetings, work or from getting things needed for daily living? No 06/20/2023 Utilities Answer Date Recorded In the past 12 months, has t he electric, gas, oil or water company threatened to shut off services in your home? No 06/20/2023 Depression Answer Date Recorded Patient Health Questionnaire-2 [...] Description 01/08/2025 2:30 PM EDT Office Visit [facility] MEDICINE [address] [place] [phone] Maritza Mariano ANP [address] [place] [address] documented as of this encounter Visit Diagnoses Diagnosis Erectile dysfunction, unspecified erectile dysfunction type documented in this encounter Care Teams Machinery Mechanic Relationship Specialty Start Date End Date Maritza Mariano ANP [address] [place] [phone] PCP - General Family Medicine 09/06/22 documented as of this encounter
--- OUTSIDE RECORDS SUMMARY | 2024-11-04 18:55 | XMS_ITS | Encounter Summary ---
Author Organization [employer] Address [address] [facility] [address]t [place] [address] Care Team Providers Care Machine Wiper Name Role Phone Maritza Mariano Primary Care Provider [phone] Encounter Details Date Type Department Care Team (Late st Contact Info) Description 09/04/2022 Orders Only [facility] MEDICINE [address] [place] [phone] Modesta Moore LPN Social History Tobacco Use Types Packs/Day Years Used Date Smoking Tobacco: Every Day Cigarettes 0.5 36.2 Started: 1988 Passive Smoke Exposure: Current Smokeless Tobacco: Never Alcohol Use Standard Drinks/Week Comments Never 0 (1 standard drink = 0.6 oz pur e alcohol) Sex and Gender Information Value Date Recorded [...] suspected to have Coronavirus/COVID-19? No / Unsure 09/06/2022 1:22 PM EST documented as of this encounter Plan of Treatment Upcoming Encounters Date Type Department Care Team (Late st Contact Info) Description 01/08/2025 2:30 PM EDT Office Visit [facility] [address] [place] [phone] Maritza Mariano ANP [address] [place] [address] documented as of this encounter Visit Diagnoses Not on filedocumented in this encounter Care Teams Machine Wiper Relationship Specialty Start Date End Date Maritza Mariano ANP [address] [place] [address] PCP - General Family Medicine 09/06/22 documented as of this encounter
--- OUTSIDE RECORDS SUMMARY | 2024-11-04 18:55 | XMS_ITS | Encounter Summary ---
Author Organization [employer] Address [address] [facility] [address] [place] [address] Care Team Providers Care Fleecer Name Role Phone Maritza Mariano Primary Care Provider [phone] Reason for Visit * Reason Onset Date Comments Appointment Request 01/24/2024 Encounter Details Date Type Department Care Team ([facility] st Contact Info) Description 01/24/2024 Telephone [facility] MEDICINE [address] [place] [address] Maritza Mariano ANP [address] [place] [address] Appointment Request Social History Tobacco Use Types Packs/Day Years [...] Recorded Patient Health Questionnaire-2 Score 2 12/31/2023 Sex and Gender Information Value Date Recorded Sex Assigned at Male 06/25/2022 10:14 AM EDT Legal Sex Male 10:14 AM EDT Gender Identity Male 06/25/2022 10:14 AM EDT Sexual Orientation Straight 12/14/2022 3: 08 PM EDT documented as of this encounter Miscellaneous Notes * Telephone Encounter - Bijal Ortiz - 01/24/2024 9:34 AM EDT Tc from [facility] calling to r/s today derm appt due to pt having another appt . documented in this encounter Plan of Treatment Upcoming Encounters Date Type Department Care Team (Late st Contact Info) Description 01/08/2025 2:30 PM EDT Office Visit [facility] MEDICINE [address] [place] [address] Maritza Mariano ANP [address] [place] [address] documented as of this encounter Visit Diagnoses Not on filedocumented in this encounter Additional Health Concerns Assessment Noted Time PHQ-9 Depression Total Score: 12 024 3:12 PM EDT documented as of this encounter Care Teams Fleecer Relationship Specialty Start Date End Date Maritza Mariano ANP [address] [place] [phone] PCP - General Family Medicine 09/06/22 documented as of this encounter
--- OUTSIDE RECORDS SUMMARY | 2024-11-04 18:55 | XMS_ITS | Encounter Summary ---
Author Organization [employer] Address [address] [facility] 7t [place] [address] Care Team Providers Care Brush Stainer Name Role Phone Maritza Mariano Primary Care Provider [phone] Reason for Visit * Reason Comments Med Refill Encounter Details Date Type Department Care Team ([facility] st Contact Info) Description 05/25/2024 Refill [facility] MEDICINE [address] [place] [address] Maritza Mariano ANP [address] [place] [address] Erectile dysfunction, unspecified erectile dysfunction type Social [...] Description 01/08/2025 2:30 PM EDT Office Visit [facility] MEDICINE [address] [place] [address] Maritza Mariano ANP [address] [place] [address] documented as of this encounter Visit Diagnoses Diagnosis Erectile dysfunction, unspecified erectile dysfunction type documented in this encounter Additional Health Concerns Assessment Noted Time PHQ-9 Depression Total Score: 12 024 3:12 PM EDT documented as of this encounter Care Teams Brush Stainer Relationship Specialty Start Date End Date Maritza Mariano ANP [address] [place] [address] PCP - General Family Medicine 09/06/22 documented as of this encounter
--- OUTSIDE RECORDS SUMMARY | 2024-11-04 18:55 | XMS_ITS | Encounter Summary ---
Author Organization [employer] Address [address] [facility] 7t [place] [address] Care Team Providers Care Microbiology Professor Name Role Phone Nick Sher Primary Care Provider [phone] Reason for Visit * Reason Onset Date Comments Medication Question 10/30/2024 Encounter Details Date Type Department Care Team ([facility] st Contact Info) Description 10/30/2024 Telephone [facility] [address] [place] [address] Nick Sher ANP [address] [place] [address] Medication Question Social History Tobacco Use Types Packs/Day Years [...] as of this encounter Miscellaneous Notes * Addendum Note - ESTEFANI Griffith - 10/30/2024 10:53 AM ESTAddended by: NICK SHER on: 10/30/2024 10:53 AM Modules accepted: Orders * Telephone Encounter - Nathalie Trinh RN - 10/30/2024 10:43 AM EST Pt returned call. Pt states 3.5 years ago, he switched from cigarettes to vaping, states that he isno longer vaping or smoking cigarettes. He confirms using the nicotine patches. Congratulated him on smoking cessation, advised him that PCP to send new Rx for nicotine to pharmacy. Pt verbalized understanding. * Telephone Encounter - Nathalie Trinh RN - 10/30/2024 9:00 AM EST Telephone call x1 to pt to inquire about below message. No answer, left voicemail to call back [facility].Will task to call again. -- PRINCE Griffith-can you clarify with patient how many cigarettes he is smoking currently? If he is doing wellon the 14 mg patch and not smoking we could decrease to the 7 mg patch. Otherwise will refill the 14 mg patch. documented in this encounter Plan of Treatment Upcoming Encounters Date Type Department Care Team ([facility] st Contact Info) Description 01/08/2025 2:30 PM EDT Office Visit [facility] [address] [place] [address] Nick Sher ANP [address] [place] [address] documented as of this encounter Visit Diagnoses Diagnosis Other tobacco product nicotine dependence, uncomplicated- Primary documented in this encounter Additional Health Concerns Assessment Noted Time PHQ-9 Depression Total Score: 12 024 3:12 PM EDT documented as of this encounter Care Teams Microbiology Professor Relationship Specialty Start Date End Date Nick Sher ANP [address] [place] [address] PCP - General Family Medicine 09/06/22 documented as of this encounter
--- OUTSIDE RECORDS SUMMARY | 2024-11-04 18:55 | XMS_ITS | Encounter Summary ---
Author Organization [employer] Address [address] [facility] 7t [place] [address] Care Team Providers Care Wafer Fab Technician Name Role Phone Maritza Mariano Primary Care Provider [phone] Reason for Visit * Reason Onset Date Comments Med Refill 02/20/2024 Encounter Details Date Type Department Care Team (Late st Contact Info) Description 02/20/2024 Refill [facility] MEDICINE [address] [place] [address] Katerin Phan MD [address] [place] [address] Chronic neck pain Social History Tobacco Use Types Packs/Day Years [...] Description 01/08/2025 2:30 PM EDT Office Visit [facility] MEDICINE [address] [place] [address] Maritza Mariano ANP [address] [place] [address] documented as of this encounter Visit Diagnoses Diagnosis Chronic neck pain Cervicalgia documented in this encounter Additional Health Concerns Assessment Noted Time PHQ-9 Depression Total Score: 12 024 3:12 PM EDT documented as of this encounter Care Teams Wafer Fab Technician Relationship Specialty Start Date End Date Maritza Mariano ANP [address] [place] [phone] PCP - General Family Medicine 09/06/22 documented as of this encounter
--- OUTSIDE RECORDS SUMMARY | 2024-11-04 18:55 | XMS_ITS | Encounter Summary ---
Author Organization [employer] Address [address] [place] [address] 7t [place] [address] Care Team Providers Care Supervisor [employer] Name Role Phone Maritza Mariano Primary Care Provider [phone] Reason for Visit * Reason Onset Date Comments Medication Question 05/01/2023 sildenafil ( Viagra) 50 MG tablet Encounter Details Date Type Department Care Team (Late st Contact Info) Description 05/01/2023 Telephone [facility] MEDICINE [address] [place] [address] Maritza Mariano ANP [address] [place], [place] [phone] Medication Question (sildenafil (Viagra) 50 MG tablet//) Social History Tobacco Use Types Packs/Day Years [...] encounter Miscellaneous Notes * Telephone Encounter - Katy Louis RN - 05/02/2023 10:48 AM EDT Telephone call returned to patient in regards to below message. Patient stated his viagra is not working, he takes 2 pills now and that is not helping--states it's like my body got use to it . Let patient know we would send message to PCP. Patient verbalized understanding and denied having any further questions or concerns at this time. * Telephone Encounter - Celi Marc - 05/01/2023 12:10 PM EDT Tc from patient requesting a call back, in regards to medication sildenafil (Viagra) 50 MG tablet. documented in this encounter Plan of Treatment Upcoming Encounters Date Type Department Care Team (Late st Contact Info) Description 01/08/2025 2:30 PM EDT Office Visit [facility] MEDICINE [address] [place] [address] Maritza Mariano ANP [address] [place] [address] documented as of this encounter Visit Diagnoses Not on filedocumented in this encounter Care Teams Supervisor Cook House Relationship Specialty Start Date End Date Maritza Mariano ANP [address] [place] [address] PCP - General Family Medicine 09/06/22 documented as of this encounter
--- OUTSIDE RECORDS SUMMARY | 2024-11-04 18:55 | XMS_ITS | Encounter Summary ---
Author Organization [employer] Address [address] [facility] 7t [place] [address] Care Team Providers Care Replenisher Name Role Phone Maritza Mariano Primary Care Provider [phone] Encounter Details Date Type Department Care Team (Late st Contact Info) Description 12/09/2023 Orders Only [facility] [address] [place] [address] Billy Lux MD [address] [place] [address] Moderate persistent asthma without complication Social History Tobacco Use Types Packs/Day Years [...] Description 01/08/2025 2:30 PM EDT Office Visit [facility] MED[facility]INE [address] [place] [address] Maritza Mariano ANP [address] [place] [address] documented as of this encounter Visit Diagnoses Diagnosis Moderate persistent asthma without complication documented in this encounter Care Teams Replenisher Relationship Specialty Start Date End Date Maritza Mariano ANP [address] [place] [address] PCP - General Family Medicine 09/06/22 documented as of this encounter
--- OUTSIDE RECORDS SUMMARY | 2024-11-04 18:55 | XMS_ITS | Encounter Summary ---
Author Organization [employer] Address 75 [facility] 7t [place] [address] Care Team Providers Care Machine Designer Name Role Phone Maritza Mariano Primary Care Provider [phone] Reason for Visit * Reason Comments Med Refill Encounter Details Date Type Department Care Team ([facility] st Contact Info) Description 07/28/2024 Refill [facility] MEDICINE [address] [place] [address] Maritza Mariano ANP [address] [place] [address] Erectile dysfunction, unspecified erectile dysfunction type Social [...] Description 01/08/2025 2:30 PM EDT Office Visit [facility] MEDICINE [address] [place] [address] Maritza Mariano ANP [address] [place] [address] documented as of this encounter Visit Diagnoses Diagnosis Erectile dysfunction, unspecified erectile dysfunction type documented in this encounter Additional Health Concerns Assessment Noted Time PHQ-9 Depression Total Score: 12 024 3:12 PM EDT documented as of this encounter Care Teams Machine Designer Relationship Specialty Start Date End Date Maritza Mariano ANP [address] [place] [address] PCP - General Family Medicine 09/06/22 documented as of this encounter
--- OUTSIDE RECORDS SUMMARY | 2024-11-04 18:55 | XMS_ITS | Encounter Summary ---
Author Organization [employer] Address 75 [facility] 7t [place] [address] Care Team Providers Care Rotary Drier Name Role Phone Maritza Mariano Primary Care Provider [phone] Reason for Visit * Reason Comments Nurse visit BP check Encounter Details Date Type Department Care Team (Late st Contact Info) Description 10/02/2024 1:30 PM EST Telemedicine [facility] MEDICINE [address] [place] [address] Nathalie Trinh RN Anxiety Social History Tobacco Use Types Packs/Day Years [...] PM EDT documented as of this encounter Progress Notes * Nathalie Trinh RN - 10/02/2024 1:30 PM EST SUBJECTIVE: Jeremi Gurrola is a 44 y.o. year old male who presents for Nurse visit BP check Preferred language for medical information: Yi Operational Communication Chief needed: No Recommendations at last visit were continue to monitor BP at home, record home log, and report elevated BPs. Today, Jeremi Gurrola does not complain of any blurred vision, shortness of breath, chest pain, dizziness, or headaches. Pt reports taking BP daily but no numbers from previous days available to review. Jeremi Gurrola does confirm taking olmesartan 20mg today. He also reports new medication: clonazepam (?) 1mg 2x daily, states it can make him drowsy at times. Pt reports trying to avoid salt, confirms wearing nicotine patch. BP Readings from Last 4 Encounters: 09/18/24 (!) 148/93 04/14/24 130/70 04/01/24 128/74 03/24/24 130/80 Pulse Readings from Last 4 Encounters: 09/18/24 93 04/01/24 90 03/23/24 65 03/03/24 65 OBJECTIVE: Today: 137/90 before taking meds. 134/87 after taking meds while on the phone No other specific numbers provided from recent history ASSESSMENT: Achieve goal blood pressure of <140/90 or <130/80 PLAN: Today's findings will be reviewed by PCP. Changes to medication regimen will be communicated back to the patient. - continue to monitor BP at home - call [facility] if BP consistently >150/90 and go to ED if elevated and signs and symptoms of hypertension present, reviewed these with pt - advised pt to call psychiatrist to report occasional drowsiness with new med. -reviewed to take BP reading 30-60 min after taking meds for accurate BP Jeremi Gurrola advised to continue taking medications as directed and reinforcement of lifestyle modifications including low sodium diet and exercise were reviewed. Advised pt to keep working on smoking cessation. Jeremi Gurrola agreeable to plan discussed at today's visit. Nathalie Trinh RN * ESTEFANI Griffith - 10/02/2024 1:30 PM EST Great! Looks good. No med changes. documented in this encounter Plan of Treatment Upcoming Encounters Date Type Department Care Team (Late st Contact Info) Description 01/08/2025 2:30 PM EDT Office Visit [facility] MEDICINE [address] [place] [address] Maritza Mariano ANP [address] [place] [address] documented as of this encounter Visit Diagnoses Diagnosis Anxiety Anxiety state, unspecified documented in this encounter Additional Health Concerns Assessment Noted Time PHQ-9 Depression Total Score: 12 024 3:12 PM EDT documented as of this encounter Care Teams Rotary Drier Relationship Specialty Start Date End Date Maritza Mariano ANP [address] [place] [address] PCP - General Family Medicine 09/06/22 documented as of this encounter
--- OUTSIDE RECORDS SUMMARY | 2024-11-04 18:55 | XMS_ITS | Encounter Summary ---
Author Organization [employer] Address [address] [facility] 7t [place] [address] Care Team Providers Care Orthotic/Prosthetic Practitioner Name Role Phone Maritza Mariano Primary Care Provider [phone] Reason for Visit * Reason Comments Med Refill Encounter Details Date Type Department Care Team ([facility] st Contact Info) Description 05/25/2024 Refill [facility] MEDICINE [address] [place] [address] Maritza Mariano ANP [address] [place] [address] Erectile dysfunction, unspecified erectile dysfunction type Social [...] Description 01/08/2025 2:30 PM EDT Office Visit [facility] MEDICINE [address] [place] [address] Maritza Mariano ANP [address] [place] [address] documented as of this encounter Visit Diagnoses Diagnosis Erectile dysfunction, unspecified erectile dysfunction type documented in this encounter Additional Health Concerns Assessment Noted Time PHQ-9 Depression Total Score: 12 024 3:12 PM EDT documented as of this encounter Care Teams Orthotic/Prosthetic Practitioner Relationship Specialty Start Date End Date Maritza Mariano ANP [address] [place] [phone] PCP - General Family Medicine 09/06/22 documented as of this encounter
--- OUTSIDE RECORDS SUMMARY | 2024-11-04 18:55 | XMS_ITS | Encounter Summary ---
Author Organization [employer] Address [address] [facility] 7t [place] [address] Care Team Providers Care Registered Land Surveyor Name Role Phone Maritza Mariano Primary Care Provider Reason for Visit * Reason Comments Med Refill Encounter Details Date Type Department Care Team ([facility] st Contact Info) Description 10/17/2024 Refill [facility] MEDICINE [address] [place] [address] Maritza Mariano ANP [address] [place] [address] Erectile dysfunction, unspecified erectile dysfunction type Social [...] Description 01/08/2025 2:30 PM EDT Office Visit [facility] MED[facility] [address] [place] [address] Maritza Mariano ANP [address] [place] [address] documented as of this encounter Visit Diagnoses Diagnosis Erectile dysfunction, unspecified erectile dysfunction type documented in this encounter Additional Health Concerns Assessment Noted Time PHQ-9 Depression Total Score: 12 024 3:12 PM EDT documented as of this encounter Care Teams Registered Land Surveyor Relationship Specialty Start Date End Date Maritza Mariano ANP [address] [place] [address] PCP - General Family Medicine 09/06/22 documented as of this encounter
--- OUTSIDE RECORDS SUMMARY | 2024-11-04 18:55 | XMS_ITS | Encounter Summary ---
Author Organization [employer] Address [address] [facility] 7t [place] [address] Care Team Providers Care Mortgage Protection Sales Name Role Phone Maritza Mariano Primary Care Provider [phone] Reason for Visit * Reason Comments Med Refill Encounter Details Date Type Department Care Team ([facility] st Contact Info) Description 12/21/2022 Refill [facility] MEDICINE [address] [place] [address] Maritza Mariano ANP [address] [place] [address] Erectile dysfunction, unspecified erectile dysfunction type; Allergic rhinitis due to other allergic trigger, unspecified seasonality Social History Tobacco Use Types Packs/Day Years [...] suspected to have Coronavirus/COVID-19? No / Unsure 12/14/2022 2:44 PM EDT documented as of this encounter Plan of Treatment Upcoming Encounters Date Type Department Care Team (Late st Contact Info) Description 01/08/2025 2:30 PM EDT Office Visit [facility] MEDICINE [address] [place] [address] Maritza Mariano ANP [address] [place] [address] documented as of this encounter Visit Diagnoses Diagnosis Erectile dysfunction, unspecified erectile dysfunction type Allergic rhinitis due to other allergic trigger, unspecified seasonality documented in this encounter Care Teams Mortgage Protection Sales Relationship Specialty Start Date End Date Maritza Mariano ANP [address] [place] [address] PCP - General Family Medicine 09/06/22 documented as of this encounter
--- OUTSIDE RECORDS SUMMARY | 2024-11-04 18:55 | XMS_ITS | Clinical Summary ---
Author Organization [employer] Address [address] [place] [address] 7[address] [place] [address] Care Team Providers Care Threading Machine Feeder Automatic Name Role Phone Maritza Mariano Primary Care Provider [phone] Allergies Active Allergy Reactions Criticality Noted Date Comments Penicillins Anaphylaxis High 08/03/2022 Shellfish Allergy Wheezing High 12/15/2010 Swelling in throat if he eats lobsters or crabs Shellfish-Derived Products Unknown 5 Medications Diclofenac Sodium 1 % gelIndications: Chronic neck pain Apply 2 g topically if needed in the morning and at bedtime (Pain). 150 g 1 023 Active cloNIDine (Catapres) 0.1 MG tablet Take 0.1 mg by mouth 2 times daily. Active fluticasone (Flonase) 50 MCG/ACT nasal spray INHALE 2 SPRAY BY INTRANASAL ROUTE EVERY DAY IN EACH NOSTRIL NEEDED FOR NASAL CONGESTION 022 Active buPROPion XL (Wellbutrin XL) 300 MG 24 hr tablet TAKE 1 TABLET BY MOUTH EVERY MORNING 023 Active mirtazapine (Remeron) 30 MG tablet TAKE 1 TABLET BY MOUTH AT BEDTIME 023 Active prazosin (Minipress) 2 MG capsule TAKE 1 CAPSULE BY MOUTH AT BEDTIME 023 Active Blood Pressure kitIndications: Essential hypertension 1 kit in the morning. 1 kit 023 Active Azelastine HCl 137 MCG/SPRAY solutionIndicat ions:Allergic rhinitis due to other allergic trigger, unspecified seasonality SPRAY 2 SPRAY BY INTRANASAL ROUTE 2 TIMES EVERY DAY IN EACH NOSTRIL NEEDED FOR NASAL CONGESTION 30 mL 1 023 Active prazosin (Minipress) 1 MG capsule 023 Active Blood Pressure Monitoring (Omron 3 Series BP Monitor) device USE TO CHECK BLOOD PRESSURE DIRECTED 023 Active risperiDONE (RisperDAL) 3 MG tabletIndicatio ns:Major Depressive Disorder Take 3 mg by mouth 2 times daily. Active EPINEPHrine (Epipen) 0.3 MG/0.3ML injection syringeIndicati ons:Shellfish allergy INJECT INTRAMUSCULARLY DIRECTED ON PACKAGE AND GO TO EMERGENCY ROOM 2 each 1 024 Active Fluticasone-Ton meterol (Advair Diskus) 250-50 MCG/ACT aerosol powderIndicatio ns:Moderate persistent asthma without complication Inhale 1 puff 2 times daily. 60 each 11 024 Active ibuprofen 800 MG tabletIndicatio ns:Chronic low back pain, unspecified back pain laterality, unspecified whether sciatica present TAKE 1 TABLET BY MOUTH EVERY 8 HOURS NEEDED FOR MILD PAIN, FEVER, OR HEADACHE 90 tablet 024 Active albuterol (Ventolin HFA) 108 (90 Base) MCG/ACT inhalerIndicati ons:Moderate persistent asthma without complication INHALE 2 PUFFS BY MOUTH EVERY 4 TO 6 HOURS NEEDED FOR WHEEZING OR SHORTNESS OF BREATH 18 g 1 024 Active omeprazole (PriLOSEC) [address] capsule TAKE 1 CAPSULE BY MOUTH TWICE DAILY DO NOT BREAK, CRUSH, DISSOLVE OR CHEW 180 capsule 025 Active cetirizine (ZyrTEC) 10 MG tabletIndicatio ns:Allergic rhinitis due to other allergic trigger, unspecified seasonality TAKE 1 TABLET BY MOUTH EVERY DAY NEEDED FOR ALLERGIES 90 tablet 1 025 Active baclofen (Lioresal) 10 MG tabletIndicatio ns:Chronic neck pain TAKE 1 TABLET BY MOUTH THREE TIMES DAILY NEEDED FOR MUSCLE SPASMS 60 tablet 1 025 Active olmesartan (Benicar) 20 MG tabletIndicatio ns:Primary hypertension Take 1 tablet (20 mg) by mouth Once per day. 90 tablet 025 2025 Active nicotine polacrilex (Nicorette) 2 MG lozengeIndicati ons:Other tobacco product nicotine dependence, uncomplicated Use as directed every 1-2 hrs as needed in place of cigarette 100 lozenge 3 025 Active montelukast (Singulair) 10 MG tabletIndicatio ns:Mild persistent asthma without complication Take 1 tablet (10 mg) by mouth Once per day. 90 tablet 025 2024 Active gabapentin (Neurontin) 300 MG capsuleIndicati ons:Chronic neck pain TAKE 1 CAPSULE BY MOUTH TWICE DAILY 60 capsule 2 025 Active sildenafil (Viagra) 50 MG tabletIndicatio ns:Erectile dysfunction, unspecified erectile dysfunction type TAKE 1 OR 2 TABLETS BY MOUTH EVERY DAY 30-60 MINUTES BEFORE SEXUAL ACTIVITY NEEDED 30 tablet 1 025 Active nicotine (Nicoderm, Step 3) 7 MG/24HR patchIndication s:Other tobacco product nicotine dependence, uncomplicated Place 1 patch on the skin 1 (one) time each day at the same time for 28 days. 28 patch 025 2024 Active omeprazole OTC (PriLOSEC OTC) 20 MG EC tabletIndicatio ns:Chronic GERD Take 1 tablet (20 mg) by mouth 2 times daily. Do not crush, chew, or split. 180 tablet 3 023 2024 Discontinued(D uplicate order (will not trigger notification to Pharmacy)) nicotine (Nicoderm CQ) 14 MG/24HR patchIndication s:Other tobacco product nicotine dependence, uncomplicated Place 1 patch on the skin 1 (one) time each day at the same time. 42 patch 025 2024 Discontinued(D ose adjustment) nicotine (Nicoderm, Step 3) 7 MG/24HR patchIndication s:Other tobacco product nicotine dependence, uncomplicated Place 1 patch on the skin 1 (one) time each day at the same time for 28 days. 28 patch 025 2024 Discontinued(R eorder (will not trigger notification to Pharmacy)) sildenafil (Viagra) 50 MG tabletIndicatio ns:Erectile dysfunction, unspecified erectile dysfunction type TAKE 1 TO 2 TABLETS BY MOUTH EVERY DAY 30 TO 60 MINUTES BEFORE SEXUAL ACTIVITY NEEDED 30 tablet 1 025 2024 Discontinued Active Problems Problem Noted Date Diagnosed Date Personal history of traumatic brain injury 05/01 HLD (hyperlipidemia) 09/28/2022 Chronic neck pain 09/06/2022 Chronic GERD 09/06/2022 Overview (12/31/2023): Taking omeprazole BID Allergic rhinitis 09/06/2022 Chronic low back pain 09/06/2022 Mild persistent asthma 09/06/2022 Overweight 09/06/2022 Lactose intolerance 12/07/2013 Bipolar affective disorder 11/26/2013 Anxiety 07/13/2013 Overview (09/28/2022): Patient used to go behavioral health clinic in [place] Encounters Date Type Department Care Team Description 10/30/2024 Telephone [facility] [address] [place] [address] Maritza Mariano ANP Medication Question 10/29/2024 Refill [facility] [address] [place] [address] Maritza Mariano ANP Other tobacco product nicotine dependence, uncomplicated 10/17/2024 Refill [facility] [address] [place] [address] Maritza Mariano ANP Erectile dysfunction, unspecified erectile dysfunction type 10/02/2024 1:30 PM EST Telemedicine [facility] [address] [place] [address] Nathalie Trinh RN Anxiety 09/24/2024 Refill [facility] [address] [place] [address] Maritza Mariano ANP Chronic neck pain 09/18/2024 1:30 PM EST Office Visit [facility] [address] [place] [address] Maritza Mariano ANP Family history of Parkinson disease (Primary Dx); Tremor of both hands; Erectile dysfunction, unspecified erectile dysfunction type; Anxiety; Chronic low back pain, unspecified back pain laterality, unspecified whether sciatica present; Primary hypertension; Encounter for immunization; Other tobacco product nicotine dependence, uncomplicated; Mild persistent asthma without complication; Chronic GERD 09/18/2024 Travel 09/18/2024 Telephone [facility] [address] [place] [address] Verito Martino, FRANCHESKA chart prep 09/14/2024 Refill [facility] [address] [place] [address] Maritza Mariano ANP Allergic rhinitis due to other allergic trigger, unspecified seasonality; Chronic neck pain 09/09/2024 Refill [facility] [address] [place] [address] Maritza Mariano ANP Erectile dysfunction, unspecified erectile dysfunction type 08/27/2024 Refill [facility] [address] [place] [address] Maritza Mariano ANP 08/13/2024 Refill [facility] [address] [place] [address] Maritza Mariano ANP Erectile dysfunction, unspecified erectile dysfunction type from Last 3 Months Immunizations Name Administration Dates Next Due Hep B, adult 07/06/2024,02/03/2024,12/31/2023 Influenza Injectable Quadriv alant Preservative Free IIV4 MDCK 05/28/2022 Influenza injectable quadriv alent preservative free 07/12/2023 Influenza, IIV3, injectable 08/30/2014, 3,04/21/2012 Influenza, seasonal, injecta ble, preservative free 09/18/2024,08/02/2015 Pfizer Covid-19 Vaccine 12+ 09/18/2024,0 02/03/2024,06/09/2021,2020 Pfizer Covid-19 Vaccine 12+ Bivalent 09/04/2022 Pneumococcal Conjugate PCV 20 10/29/2022 Tdap 12/31/2023 Social History Tobacco Use Types Packs/Day Years Used Date Smoking Tobacco: Former Cigarettes 0.5 34.3 1 989 - 12/2022 Passive Smoke Exposure: Past Smokeless Tobacco: Current Tobacco Cessation:Ready to Q uit: Not Asked; Counseling Given: Not Answered Comments:Vaping 5% Alcohol Use Standard Drinks/Week Comments [...] Orientation Straight 12/14/2022 3: 08 PM EDT Last Filed Vital Signs Vital Sign Reading Time Taken Comments Blood Pressure 148/93 09/18/2024 1:34 PM EST Pulse 93 09/18/2024 1:34 PM EST Temperature 36.3 ??C (97.4 ??F) 04/01/2024 3:16 PM ED T Respiratory Rate 14 09/18/2024 1:34 PM EST Oxygen Saturation 97% 09/18/2024 1:34 PM EST Inhaled Oxygen Concentration - - Weight 89.4 kg (197 lb 3.2 oz) 09/18/2024 1:34 P M EST Height 167.6 cm (5' 6 ) 04/01/2024 3:16 PM EDT Body Mass Index 31.83 04/01/2024 3:16 PM EDT Plan of Treatment Upcoming Encounters Date Type Department Care Team (Late st Contact Info) Description 01/08/2025 2:30 PM EDT Office Visit [facility] MED[facility]INE [address] [place] [address] Maritza Mariano ANP [address] [place] [address] Health Maintenance Due Date Last Done Comments CT Colonography 1978 Colonoscopy 1978 FIT 1978 FOBT 1978 Sigmoidoscopy 1978 Alcohol/Substance Use Screening 1990 Family Planning (PISQ) 1993 Dental Oral Exam 06/17/2024 12/16/2023, 05/2023, 01/11/2023 Depression Monitoring (PHQ-9) 07/02/2024 12/31/2023, 12/31/2023 Dental Prophylaxis 07/05/2024 01/02/2024, 01/11/2023 Dental X-Ray: Bitewings 12/16/2024 12/16/19 24, 04/18/2023, 12/14/2022 SDOH Screening 12/23/2024 12/24/2023 Depression Screening 12/30/2024 12/31/2023, 12/31/19 Tobacco Screening 09/18/2025 09/18/2024 Dental X-Ray: Full Mouth 12/15/2025 12/14/2022 Colorectal Cancer Screening 05/12/2027 FIT DNA/Cologuard 05/12/2027 05/12/2024 Lipid Panel 10/30/2027 10/29/2022 Zoster Vaccines (1 of 2) 2028 DTaP/Tdap/Td Vaccines (2 - Td or Tdap) 12/30/2033 12/31/2023 RSV Patients and Patients Aged 60 years or older (1 - 1-dose 75+ series) 2053 HIV Screening Completed 10/29/2022 Hepatitis C Screening Completed 10/29/2022 Pneumococcal Vaccine: Pediatrics (0 to 5 Years) and At-Risk Patients (6 to 49) Years) Completed 10/29/2022 Hepatitis B Vaccines Completed 07/06/2024, 02/03/2024, 12/31/2023 COVID-19 Vaccine Completed 09/18/2024, 05/2024, 09/04/2022, Additional history exists Influenza Vaccine Completed 09/18/2024, , 05/28/2022, Additional history exists HIB Vaccines Aged Out No longer eligi ble based on patient's age to complete this topic HPV Vaccines Aged Out No longer eligi ble based on patient's age to complete this topic Hepatitis A Vaccines Aged Out No long er eligible based on patient's age to complete this topic IPV Vaccines Aged Out No longer eligi ble based on patient's age to complete this topic Meningococcal Vaccine Aged Out No charis kulwinder eligible based on patient's age to complete this topic RSV under 20 months Aged Out No longe r eligible based on patient's age to complete this topic Rotavirus Vaccines Aged Out No longer eligible based on patient's age to complete this topic Procedures Procedure Name Priority Date/Time Associated Diagnosis Comments LAB COLOGUARD?? COLON CANCER SCREEN Routine 05/12/2024 10:55 AM EDT Screening for malignant neoplasm of colon Full PROPHYLAXIS - ADULT Routine 01/02/2024 3:00 PM EDT BITEWINGS - 4 RADIOGRAPHIC IMAGES Routine 12/16/2023 3:00 PM EDT Periodontal disease Dental caries PERIODIC ORAL EVALUATION - ESTABLISHED PATIENT Routine 12/16/2023 3:00 PM EDT Periodontal disease Dental caries INTRAORAL - COMPLETE SERIES OF RADIOGRAPHIC IMAGES Routine 12/14/2022 3:00 PM EDT HEPATITIS C AB W/REFL TO HCV RNA, QN, PCR Routine 10/29/2022 12:14 PM EST Healthcare maintenance HIV 1/2 ANTIGEN/ANTIBODY, FOURTH GENERATION W/RFL Routine 10/29/2022 12:14 PM EST Healthcare maintenance LIPID PANEL, STANDARD Routine 10/29/2022 12:14 PM EST Hyperlipidemia, unspecified hyperlipidemia type from Last 3 Months or Most Recently Relevant to Health Maintenance Results * Cologuard?? colon cancer screening (05/12/2024 10:55 AM EDT) Cologuard Result Negative Negative 05/20/20 9:22 AM EDT [facility] (CLIA #:[id number]) Comment: NEGATIVE TEST RESULT. A negative Cologuard result indicates a low likelihood that a colorectal cancer (CRC) or advanced adenoma (adenomatous polyps with more advanced pre-malignant features) ??is present. The chance that a person with a negative Cologuard test has a colorectal cancer is less than 1 in 1500 (negative predictive value >99.9%) or has an ??advanced adenoma is less than ??5.3% (negative predictive value 94.7%). These data are based on a prospective cross-sectional study of 10,000 individuals at average risk for colorectal cancer who were screened with both Cologuard and colonoscopy. (Deja Atwood et al, N Engl J Med 2014;370(14):1286- 1297) The normal value (reference range) for this assay is negative. COLOGUARD RE-SCREENING RECOMMENDATION: Periodic colorectal cancer screening is an important part of preventive healthcare for asymptomatic individuals at average risk for colorectal cancer. ??Following a negative Cologuard result, the [place] [employer] and U.S. Multi-Society Task Force screening guidelines recommend a Cologuard re-screening interval of 3 years. References: [place] [employer] Guideline for Colorectal Cancer Screening: https://www.cancer.org/cancer/bhsba-dojwvc-keeiqi/xndimuswk-psizlsrwz-rlkzwig/ac s-rec ommendations.html.; Sabas DK, Abdi CR, Destiny CastroK, Colorectal Cancer Screening: Recommendations for Physicians and Patients from the U.S. Multi-Society Task Force on Colorectal Cancer Screening , Am J Gastroenterology 2017; 112:4368-2767. TEST DESCRIPTION: Composite algorithmic analysis of stool DNA-biomarkers with hemoglobin immunoassay. ?? Quantitative values of individual biomarkers are not reportable and are not associated with individual biomarker result reference ranges. Cologuard is intended for colorectal cancer screening of adults of either sex, 45 years or older, who are at average-risk for colorectal cancer (CRC). Cologuard has been approved for use by the U.S. FDA. The performance of Cologuard was established in a cross sectional study of average-risk adults aged 50-84. Cologuard performance in patients ages 45 to 49 years was estimated by sub-group analysis of near-age groups. Colonoscopies performed for a positive result may find as the most clinically significant lesion: colorectal cancer [4.0%], advanced adenoma (including sessile serrated polyps greater than or equal to 1cm diameter) [20%] or non- advanced adenoma [31%]; or no colorectal neoplasia [45%]. These estimates are derived from a prospective cross-sectional screening study of 10,000 individuals at average risk for colorectal cancer who were screened with both Cologuard and colonoscopy. (Deja Peter al, N Engl J Med 2014;370(14):2280-0182.) Cologuard may produce a false negative or false positive result (no colorectal cancer or precancerous polyp present at colonoscopy follow up). A negative Cologuard test result does not guarantee the absence of CRC or advanced adenoma (pre-cancer). The current Cologuard screening interval is every 3 years. ([place] [employer] Society and U.S. Multi-Society Task Force). Cologuard performance data in a 10,000 patient pivotal study using colonoscopy as the reference method can be accessed at the following location: www.ROVOP/results. Additional description of the Cologuard test process, warnings and precautions can be found at www.[employer]. Stool specimen (specimen) 05/12/2024 10:55 AM EDT 05/13/2024 2:41 PM EDT [facility] MOLECULAR DIAGNOSTICS ORDERA BLES Final Result [facility] (CLIA #:[id number]) [place] [address], * Hepatitis C Antibody with Reflex to HCV, RNA, Quantitative, Real-Time PCR (10/29/2022 12:14 PM EST) Hepatitis C Antibody NON-REACT FRANSICO NON-REACT FRANSICO [facility] [place] [facility] Index 0.03 <1.00 [facility] [place] [facility] Comment: HCV antibody was non-reactive. There is no laboratory evidence of HCV infection. In most cases, no further action is required. However, if recent HCV exposure is suspected, a test for HCV RNA (test code 75042) is suggested. For additional information please refer to http://[facility].Guidefitter/faq/LNH65s3 (This link is being provided for informational/ educational purposes only.) Blood Venous blood specimen / Unknown 10/29/2022 12:14 PM EST 10/29/2022 12:15 PM EST Narrative [facility] - 11/06/2022 7:52 PM EDT FASTING:NO FASTING: NO [facility] LAB BLOOD ORDERABLES Final Resul t [facility] [address], [place] [address] [facility] [place] [employer] [address] [place] [address] * HIV-1/2 Antigen and Antibodies, Fourth Generation, with Reflexes (10/29/2022 12:14 PM EST) [facility] HIV Antigen/Antibody, 4th Generation NON-REAC TIVE NON-REAC TIVE [facility] [place] [facility] Comment: HIV-1 antigen and HIV-1/HIV-2 antibodies were not detected. There is no laboratory evidence of HIV infection. PLEASE NOTE: This information has been disclosed to you from records whose confidentiality may be protected by state law. ??If your state requires such protection, then the state law prohibits you from making any further disclosure of the information without the specific written consent of the person to whom it pertains, or as otherwise permitted by law. A general authorization for the release of medical or other information is NOT sufficient for this purpose. ?? For additional information please refer to http://[facility].Guidefitter/faq/GNE489 (This link is being provided for informational/ educational purposes only.) The performance of this assay has not been clinically validated in patients less than 2 years old. Blood Venous blood specimen / Unknown 10/29/2022 12:14 PM EST 10/29/2022 12:15 PM EST Narrative [facility] - 11/06/2022 7:52 PM EDT FASTING:NO FASTING: NO [facility] LAB BLOOD ORDERABLES Final Resul t [facility] [address], [place] [address] [facility] [place] [facility] [address] [place] [address] * (ABNORMAL) Lipid Panel, Standard (10/29/2022 12:14 PM EST) Cholesterol, Total 228(H) <200 mg/dL [facility] [place] [facility] HDL Cholesterol 34(L) > OR = 40 mg/dL [facility] [place] [facility] Triglycerides 404(H) <150 mg/dL [facility] [place] [facility] Comment: If a non-fasting specimen was collected, consider repeat triglyceride testing on a fasting specimen if clinically indicated. Vinod et al. J. of Clin. Lipidol. 2015;9:129-169. LDL Cholesterol [facility] [place] [employer] Comment: LDL cholesterol not calculated. Triglyceride levels greater than 400 mg/dL invalidate calculated LDL results. Reference range: <100 Desirable range <100 mg/dL for primary prevention; ?? <70 mg/dL for patients with CHD or diabetic patients with > or = 2 CHD risk factors. LDL-C is now calculated using the Ayo-Kelly calculation, which is a validated novel method providing better accuracy than the Friedewald equation in the estimation of LDL-C. Ayo SS et al. CHARO. 2013;310(19): 1889-2437 (http://education.Million-2-1/faq/NIG080) Chol/HDLC Ratio 6.7(H) <5.0 (calc) [facility] [place] [employer] Non-HDL Cholesterol 194(H) <130 mg/dL (calc) [facility] [place] [facility] Comment: For patients with diabetes plus 1 major ASCVD risk factor, treating to a non-HDL-C goal of <100 mg/dL (LDL-C of <70 mg/dL) is considered a therapeutic option. Blood Venous blood specimen / Unknown 10/29/2022 12:14 PM EST 10/29/2022 12:15 PM EST Narrative [facility] - 11/06/2022 7:52 PM EDT FASTING:NO FASTING: NO [facility] LAB BLOOD ORDERABLES Final Resul t [facility] [address] [facility], [place] [address] [facility] [address] [place] [address] from Last 3 Months or Most Recently Relevant to Health Maintenance Insurance [facility] C3 [place] ST[place] AD[place] Care Teams Threading Machine Feeder Automatic Relationship Specialty Start Date End Date Maritza Mariano ANP [address] [place] [id number] PCP - General Family Medicine 09/06/22
--- OUTSIDE RECORDS SUMMARY | 2024-11-04 18:55 | XMS_ITS | Encounter Summary ---
Author Organization [employer] Address [address] [facility] [address] [place] [address] Care Team Providers Care Seasonal Tax Preparer Name Role Phone Maritza Mariano Primary Care Provider [phone] Reason for Visit * Reason Comments Med Refill Encounter Details Date Type Department Care Team ([facility] st Contact Info) Description 10/29/2024 Refill [facility] [address] [place] [address] Maritza Mariano ANP [address] [place] [address] Other tobacco product nicotine dependence, uncomplicated Social History Tobacco Use Types Packs/Day Years [...] encounter Miscellaneous Notes * Telephone Encounter - ESTEFANI Griffith - 10/30/2024 12:26 PM EST 7mg sent in separate encounter documented in this encounter Plan of Treatment Upcoming Encounters Date Type Department Care Team (Late st Contact Info) Description 01/08/2025 2:30 PM EDT Office Visit [facility] [address] [place] [id number] Maritza Mariano ANP [address] [place] [address] documented as of this encounter Visit Diagnoses Diagnosis Other tobacco product nicotine dependence, uncomplicated documented in this encounter Additional Health Concerns Assessment Noted Time PHQ-9 Depression Total Score: 12 024 3:12 PM EDT documented as of this encounter Care Teams Seasonal Tax Preparer Relationship Specialty Start Date End Date Maritza Mariano ANP [address] [place] [id number] PCP - General Family Medicine 09/06/22 documented as of this encounter
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
[2024-11-04 19:48] VITALS: BP 161/108; PULSE 81; RESP 16; TEMP 37; O2SAT 94
[2024-11-04 20:00] VITALS: BMI 29.4
[2024-11-04] MEDS: Ketorolac Tromethamine 60 MG/2 ML VIAL IM (20:04)
[2024-11-04 20:07] VITALS: BP 161/108; PULSE 81; RESP 16; TEMP 37; O2SAT 94
== END 2024-11-04 20:10 | disposition home or self-care (01) ==
PROVIDERS: Emergency Provider Emergency Medicine Emergency Medical Services
DX: S06.0X0A Concussion without loss of consciousness, initial encounter (principal); S20.211A Contusion of right front wall of thorax, initial encounter; S16.1XXA Strain of muscle, fascia and tendon at neck level, initial encounter; S29.012A Strain of muscle and tendon of back wall of thorax, initial encounter; R07.89 Other chest pain; M79.10 Myalgia, unspecified site; M54.2 Cervicalgia; R51.9 Headache, unspecified; V43.52XA Car driver injured in collision with other type car in traffic accident, initial encounter; M54.6 Pain in thoracic spine; Y93.9 Activity, unspecified; Y92.410 Unspecified street and highway as the place of occurrence of the external cause; Y99.8 Other external cause status; Z79.899 Other long term (current) drug therapy
CPT/HCPCS: 96372; 99283; 99284; J1885

== ENCOUNTER 2024-11-26 14:27 | Outpatient (REF) | payer OTHER, SELFPAY ==
--- NOTE | ~2024-11-26 | XR_ITS ---
EXAMINATION: XR THORACIC SPINE CLINICAL INFORMATION: PAIN COMPARISON: None available. TECHNIQUE: 3 views of the thoracic spine were obtained. FINDINGS: There is no scoliosis. There is a minimally exaggerated kyphosis. No fracture, compression deformity, or suspicious bone lesion. No subluxations. Anatomical alignment. Moderate diffuse disc degeneration throughout the thoracic region. Mild degenerative facet changes with normal facet alignment. The imaged mediastinal contents, lungs, and soft tissues appear normal. XR/XR thoracic spine 2V IMPRESSION: 1. No acute bony abnormalities. 2. Mild to moderate thoracic spondylosis. Minimally exaggerated kyphosis. Electronically signed by: Jeremy Meng MD 11/26/2024 04:05 PM EDT
--- NOTE | ~2024-11-26 | XR_ITS ---
EXAMINATION: XR LUMBOSACRAL SPINE CLINICAL INFORMATION: PAIN COMPARISON: No prior. MR lumbar 09/27/2022 TECHNIQUE: Three views of the lumbosacral spine. FINDINGS: There is no scoliosis. There is normal lordosis. There is no subluxation. There is no fracture, compression deformity, or suspicious bone lesion. Minimal disc degeneration is present throughout, most notable at L5-S1. Mild facet degeneration noted L5-S1. Normal facet alignment. The SI joints are normal in appearance. The sacrum is intact. There is no discrete soft tissue abnormality aside from mild vascular calcification. XR/XR lumbar spine 2-3V IMPRESSION: 1. No acute abnormalities of the lumbar spine. 2. Mild degenerative spondylosis. Electronically signed by: Jeremy Meng MD 11/26/2024 04:12 PM EDT
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
--- OUTSIDE RECORDS SUMMARY | 2024-11-26 15:59 | XMS_ITS | Encounter Summary ---
Author Organization [employer] Address [address] [place] [address] [address] [place] [address] Care Team Providers Care Event Specialist Food Demonstrator Name Role Phone Maritza Mariano Primary Care Provider [phone] Reason for Visit * Reason Onset Date Comments Med Refill 11/08/2022 Encounter Details Date Type Department Care Team (Late st Contact Info) Description 11/08/2022 Telephone [facility] MEDICINE [address] [place] [address] Maritza Mariano ANP [address] [place] [address] Med Refill Social History Tobacco Use Types Packs/Day Years Used Date Smoking Tobacco: Every Day Cigarettes 0.5 36.3 Started: 1988 Passive Smoke Exposure: Past Smokeless [...] 10:53 AM EDT Medication was sent to [id number] on 09/06/22 Qty: 90 with 1 refill. * Telephone Encounter - Bijal Ortiz - 11/08/2022 10:23 AM EDT Tc from pt requesting med refill for medication omeprazole OTC (PriLOSEC OTC) 20 MG EC tablet. documented in this encounter Plan of Treatment Upcoming Encounters Date Type Department Care Team (Late st Contact Info) Description 01/08/2025 2:30 PM EDT Office Visit [facility] MEDICINE [address] [place] [address] Maritza Mariano ANP [address] [place] [address] 05/03/2025 1:00 PM EDT Office Visit [facility] OPTOMETRY [address] [place] [address] Tiffani David, OD [address] [place] [address] documented as of this encounter Visit Diagnoses Not on filedocumented in this encounter Care Teams Event Specialist Food Demonstrator Relationship Specialty Start Date End Date Maritza Mariano ANP [address] [place] [address] PCP - General Family Medicine 09/06/22 documented as of this encounter
--- OUTSIDE RECORDS SUMMARY | 2024-11-26 15:59 | XMS_ITS | Encounter Summary ---
Author Organization [employer] Address [address] [facility] [address] [place] [address] Care Team Providers Care Toe Stripper Name Role Phone Maritza Mariano Primary Care Provider [phone] Reason for Visit * Reason Onset Date Comments Appointment Request 11/23/2024 Encounter Details Date Type Department Care Team ([facility] st Contact Info) Description 11/23/2024 Telephone [facility] MEDICINE [address] [place] [address] Maritza Mariano ANP [address] [place] [address] Appointment Request Social History Tobacco Use Types Packs/Day Years Used Date Smoking Tobacco: Former Cigarettes 0.5 34.3 1 989 - 12/2022 Passive Smoke Exposure: Past Smokeless Tobacco: Current Comments:Vaping 5% Alcohol Use Standard Drinks/Week Comments Never 0 (1 standard drink = 0.6 oz pur e alcohol) Depression Answer Date Recorded Patient Health Questionnaire-9 Score 13 11/26/2024 Patient Health Questionnaire-9 Score 13 11/26/2024 Last PHQ-9: Questionnaire Data Not on file 0 11/26/2024 Housing Stability Answer Date Recorded What is [...] Answer Date Recorded Patient Health Questionnaire-2 Score 4 11/26/2024 Internet Access Answer Date Recorded Internet Access [...] encounter Miscellaneous Notes * Telephone Encounter - Bernardo Gimenez - 11/23/2024 3:29 PM EDT Tc from spouse requesting to reschedule sick on site appointment. Please return call [phone] documented in this encounter Plan of Treatment Upcoming Encounters Date Type Department Care Team (Late st Contact Info) Description 01/08/2025 2:30 PM EDT Office Visit [facility] MEDICINE [address] [place] [address] Maritza Mariano, ANP [address] [place] [address] 05/03/2025 1:00 PM EDT Office Visit [facility] OPTOMETRY [address] [place] [address] Tiffani David, OD [address] [place] [address] documented as of this encounter Visit Diagnoses Not on filedocumented in this encounter Additional Health Concerns Assessment Noted Time PHQ-9 Depression Total Score: 12 024 3:12 PM EDT documented as of this encounter Care Teams Toe Stripper Relationship Specialty Start Date End Date Maritza Mariano ANP [address] [place] [address] PCP - General Family Medicine 09/06/22 documented as of this encounter
--- OUTSIDE RECORDS SUMMARY | 2024-11-26 15:59 | XMS_ITS | Encounter Summary ---
Author Organization [employer] Address [address] [place] [address] [address] [place] [address] Care Team Providers Care Leather Belt Maker Name Role Phone Maritza Mariano Primary Care Provider [phone] Reason for Visit * Reason Comments Med Refill Encounter Details Date Type Department Care Team (Late st Contact Info) Description 12/21/2022 Refill [facility] MEDICINE [address] [place] [address] Maritza Mariano ANP [address] [place] [address] Erectile dysfunction, unspecified erectile dysfunction type; Allergic [...] Description 01/08/2025 2:30 PM EDT Office Visit [facility] MEDICINE [address] [place] [address] Maritza Mariano ANP [address] [place] [address] 05/03/2025 1:00 PM EDT Office Visit [facility] OPTOMETRY [address] [place] [address] TarTiffani chow, OD [address] [place] [address] documented as of this encounter Visit Diagnoses Diagnosis Erectile dysfunction, unspecified erectile dysfunction type Allergic rhinitis due to other allergic trigger, unspecified seasonality documented in this encounter Care Teams Leather Belt Maker Relationship Specialty Start Date End Date Maritza Mariano ANP [address] [place] [address] PCP - General Family Medicine 09/06/22 documented as of this encounter
--- OUTSIDE RECORDS SUMMARY | 2024-11-26 15:59 | XMS_ITS | Encounter Summary ---
Author Organization [employer] Address [address] [facility] 7[address] [place] [address] Care Team Providers Care Children'S Service Worker Name Role Phone Maritza Mariano Primary Care Provider [phone] Encounter Details Date Type Department Care Team (Late st Contact Info) Description 12/09/2023 Orders Only [facility]S [address] [place] [address] Billy Lux MD [address] [place] [address] Moderate persistent asthma without complication Social History [...] is your housing situation today? I have michellewellington cordoba 06/20/[address] you [...] 2:30 PM EDT Office Visit [facility] MEDICINE [address] [place] [address] Maritza Mariano ANP [address] [place] [address] 05/03/2025 1:00 PM EDT Office Visit [facility] OPTOMETRY [address] [place] [address] Tiffani David, OD [address] [place] [address] documented as of this encounter Visit Diagnoses Diagnosis Moderate persistent asthma without complication documented in this encounter Care Teams Children'S Service Worker Relationship Specialty Start Date End Date Maritza Mariano ANP [address] [place] [address] PCP - General Family Medicine 09/06/22 documented as of this encounter
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
--- OUTSIDE RECORDS SUMMARY | 2024-11-26 15:59 | XMS_ITS | Encounter Summary ---
Author Organization [employer] Address [address] [place] [address] [address] [place] [address] Care Team Providers Care Animal Care Specialist Name Role Phone Maritza Mariano Primary Care Provider [phone] Reason for Visit * Reason Onset Date Comments Medication Question 05/01/2023 sildenafil ( Viagra) 50 MG tablet Encounter Details Date Type Department Care Team (Late st Contact Info) Description 05/01/2023 Telephone [facility] MEDICINE [address] [place] [address] Maritza Mariano ANP [address] [place] [address] Medication Question (sildenafil (Viagra) 50 MG tablet//) [...] Description 01/08/2025 2:30 PM EDT Office Visit [facility] MEDICINE [address] [place] [address] Maritza Mariano ANP [address] [place] [address] 05/03/2025 1:00 PM EDT Office Visit [facility] OPTOMETRY [address] [place] [address] Tarka, Tiffani, OD [address] [place] [address] documented as of this encounter Visit Diagnoses Not on filedocumented in this encounter Care Teams Animal Care Specialist Relationship Specialty Start Date End Date Maritza Mariano ANP [address] [place] [address] PCP - General Family Medicine 09/06/22 documented as of this encounter
--- OUTSIDE RECORDS SUMMARY | 2024-11-26 15:59 | XMS_ITS | Encounter Summary ---
Author Organization [employer] Address [address] [facility] 7t [place] [address] Care Team Providers Care Ferryboat Pilot Name Role Phone Maritza Mariano Primary Care Provider [phone] Reason for Visit * Reason Comments Med Refill Encounter Details Date Type Department Care Team (Late st Contact Info) Description 09/09/2024 Refill [facility] MEDICINE [address] [place] [address] Maritza Mariano ANP 230 [place] [address] Erectile dysfunction, unspecified erectile dysfunction type Social [...] 2:30 PM EDT Office Visit [facility] MEDICINE [address] [place] [address] Maritza Mariano ANP 230 [place] [address] 05/03/2025 1:00 PM EDT Office Visit [facility] OPTOMETRY [address] [place] [address] Tiffani David, OD [address] [place] [address] documented as of this encounter Visit Diagnoses Diagnosis Erectile dysfunction, unspecified erectile dysfunction type documented in this encounter Additional Health Concerns Assessment Noted Time PHQ-9 Depression Total Score: 12 024 3:12 PM EDT documented as of this encounter Care Teams Ferryboat Pilot Relationship Specialty Start Date End Date Maritza Mariano ANP 230 [place] [address] PCP - General Family Medicine 09/06/22 documented as of this encounter
--- OUTSIDE RECORDS SUMMARY | 2024-11-26 15:59 | XMS_ITS | Encounter Summary ---
Author Organization [employer] Address [address] [place] [address] 7t [place] [address] Care Team Providers Care Sand Shoveler Name Role Phone Maritza Mariano Primary Care Provider [phone] Reason for Visit * Reason Onset Date Comments Med Refill 02/20/2024 Encounter Details Date Type Department Care Team (Late st Contact Info) Description 02/20/2024 Refill [facility] MEDICINE [address] [place] [address] Katerin Phan MD 230 [place] [address] Chronic neck pain Social History Tobacco Use [...] Office Visit [facility] MEDICINE [address] [place] [address] Maritza Mariano ANP 230 [place] [address] 05/03/2025 1:00 PM EDT Office Visit [facility] OPTOMETRY [address] [place] [address] Tarka, Tiffani, OD [address] [place] [address] documented as of this encounter Visit Diagnoses Diagnosis Chronic neck pain Cervicalgia documented in this encounter Additional Health Concerns Assessment Noted Time PHQ-9 Depression Total Score: 12 024 3:12 PM EDT documented as of this encounter Care Teams Sand Shoveler Relationship Specialty Start Date End Date Maritza Mariano ANP [address] [place] [address] PCP - General Family Medicine 09/06/22 documented as of this encounter
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
--- OUTSIDE RECORDS SUMMARY | 2024-11-26 15:59 | XMS_ITS | Encounter Summary ---
Author Organization [employer] Address [address] [facility] 7t [place] [address] Care Team Providers Care Sales Contract Administrator Name Role Phone Maritza Mariano Primary Care Provider [phone] Reason for Visit * Reason Comments Med Refill Encounter Details Date Type Department Care Team (Late st Contact Info) Description 12/04/2023 Refill [facility] [address] [place] [address] Maritza Mariano ANP [address] [place] [address] Erectile dysfunction, unspecified erectile dysfunction type Social [...] 2:30 PM EDT Office Visit [facility] [address] [place] [address] Maritza Mariano ANP [address] [place] [address] 05/03/2025 1:00 PM EDT Office Visit [facility] OPTOMETRY [address] [place] [address] Tiffani David, OD [address] [place] [address] documented as of this encounter Visit Diagnoses Diagnosis Erectile dysfunction, unspecified erectile dysfunction type documented in this encounter Care Teams Sales Contract Administrator Relationship Specialty Start Date End Date Maritza Mariano ANP [address] [place] [address] PCP - General Family Medicine 09/06/22 documented as of this encounter
--- OUTSIDE RECORDS SUMMARY | 2024-11-26 15:59 | XMS_ITS | Encounter Summary ---
Author Organization [employer] Address [address] [facility] 7t [place] [address] Care Team Providers Care Usability Strategist Name Role Phone Maritza Mariano Primary Care Provider [phone] Reason for Visit * Reason Onset Date Comments Appointment Request 01/24/2024 Encounter Details Date Type Department Care Team ([facility] st Contact Info) Description 01/24/2024 Telephone [facility] MEDICINE [address] [place] [address] Maritza Mariano ANP [address] [place] [address] Appointment Request Social History Tobacco Use Types [...] Description 01/08/2025 2:30 PM EDT Office Visit [facility] MEDICINE [address] [place] [address] Maritza Mariano ANP 230 [place] [address] 05/03/2025 1:00 PM EDT Office Visit [facility] OPTOMETRY [address] [place] [address] Tiffani David, OD [address] [place] [address] documented as of this encounter Visit Diagnoses Not on filedocumented in this encounter Additional Health Concerns Assessment Noted Time PHQ-9 Depression Total Score: 12 024 3:12 PM EDT documented as of this encounter Care Teams Usability Strategist Relationship Specialty Start Date End Date Maritza Mariano ANP [address] [place] [address] PCP - General Family Medicine 09/06/22 documented as of this encounter
--- OUTSIDE RECORDS SUMMARY | 2024-11-26 15:59 | XMS_ITS | Encounter Summary ---
Author Organization [employer] Address [address] [place] [address] 7t [place] [address] Care Team Providers Care Mri Assistant Name Role Phone MarianoMaritza Primary Care Provider [phone] Reason for Visit * Reason Onset Date Comments case back from lab 02/07/2023 Encounter Details Date Type Department Care Team (Late st Contact Info) Description 02/07/2023 Telephone [facility] ADULT DENTAL [address] [place] [address] Arian Sandhu, DDS [address] [place] [address] case back from lab Social History Tobacco [...] Description 01/08/2025 2:30 PM EDT Office Visit [facility] MEDICINE 230 [place] [address] Maritza Mariano ANP 230 [place] [address] 05/03/2025 1:00 PM EDT Office Visit [facility] OPTOMETRY [address] [place] [address] TarTiffani chow, OD [address] [place] [address] documented as of this encounter Visit Diagnoses Not on filedocumented in this encounter Care Teams Mri Assistant Relationship Specialty Start Date End Date Maritza Mariano ANP [address] [place] [address] PCP - General Family Medicine 09/06/22 documented as of this encounter
--- OUTSIDE RECORDS SUMMARY | 2024-11-26 15:59 | XMS_ITS | Encounter Summary ---
Author Organization [employer] Address [address] [facility] 7t [place] [address] Care Team Providers Care Surgical Corsetier Name Role Phone Maritza Mariano Primary Care Provider Reason for Visit * Reason Comments Med Refill Encounter Details Date Type Department Care Team (Late st Contact Info) Description 05/25/[address] [facility] MEDICINE [address] [place] [address] Maritza Mariano ANP [address] [place] [address] Erectile dysfunction, unspecified erectile dysfunction type Social [...] Description 01/08/2025 2:30 PM EDT Office Visit [facility] MEDICINE [address] [place] [address] Maritza Mariano ANP [address] [place] [address] 05/03/2025 1:00 PM EDT Office Visit [facility] OPTOMETRY [address] [place] [address] Tarka, Tiffani, OD [address] [place] [address] documented as of this encounter Visit Diagnoses Diagnosis Erectile dysfunction, unspecified erectile dysfunction type documented in this encounter Additional Health Concerns Assessment Noted Time PHQ-9 Depression Total Score: 12 024 3:12 PM EDT documented as of this encounter Care Teams Surgical Corsetier Relationship Specialty Start Date End Date Maritza Mariano ANP [address] [place] [address] PCP - General Family Medicine 09/06/22 documented as of this encounter
--- OUTSIDE RECORDS SUMMARY | 2024-11-26 15:59 | XMS_ITS | Encounter Summary ---
Author Organization [employer] Address 75 [facility] 7t [place] [address] Care Team Providers Care Outpatient Program Coordinator Name Role Phone MarianoMaritza Primary Care Provider [phone] Encounter Details Date Type Department Care Team (Latest Contact Info) Description 11/26/2024 Travel Social History Tobacco Use Types Packs/Day Years [...] Description 01/08/2025 2:30 PM EDT Office Visit [facility] MEDICINE 230 [place] [address] Maritza Mariano ANP 230 [place] [address] 05/03/2025 1:00 PM EDT Office Visit [facility] OPTOMETRY [address] [place] [address] TarkaTiffani, OD [address] [place] [address] documented as of this encounter Visit Diagnoses Not on filedocumented in this encounter Additional Health Concerns Assessment Noted Time PHQ-9 Depression Total Score: 13 025 1:49 PM EDT documented as of this encounter Care Teams Outpatient Program Coordinator Relationship Specialty Start Date End Date Maritza Mariano ANP [address] [place] [address] PCP - General Family Medicine 09/06/22 documented as of this encounter
--- OUTSIDE RECORDS SUMMARY | 2024-11-26 15:59 | XMS_ITS | Encounter Summary ---
Author Organization [employer] Address [address] [place] [address] 7t [place] [address] Care Team Providers Care Automotive Sales Associate Name Role Phone Maritza Mariano Primary Care Provider [phone] Encounter Details Date Type Department Care Team (Late st Contact Info) Description 09/04/2022 Orders Only [facility] MEDICINE [address] [place] [address] Modesta Moore LPN Social History Tobacco Use Types Packs/Day Years Used Date Smoking Tobacco: Every Day Cigarettes 0.5 36.3 Started: 1988 Passive Smoke Exposure: Current Smokeless [...] Description 01/08/2025 2:30 PM EDT Office Visit [facility] MEDICINE 230 [place], [place] [phone] Maritza Mariano ANP 230 [place], [place] [phone] 05/03/2025 1:00 PM EDT Office Visit [facility] [address] [place], [place] [phone] Tiffani David, [place] [address] [place] [address] documented as of this encounter Visit Diagnoses Not on filedocumented in this encounter Care Teams Automotive Sales Associate Relationship Specialty Start Date End Date Maritza Mariano ANP [address] [place] [address] PCP - General Family Medicine 09/06/22 documented as of this encounter
--- OUTSIDE RECORDS SUMMARY | 2024-11-26 15:59 | XMS_ITS | Encounter Summary ---
Author Organization [employer] Address 75 [facility] 7t [place] [address] Care Team Providers Care Phlebotomist Name Role Phone Maritza Mariano Primary Care Provider [phone] Reason for Visit * Reason Comments Med Refill Encounter Details Date Type Department Care Team (Late st Contact Info) Description 05/25/2024 Refill [facility] MEDICINE [address] [place] [address] Marizta Mariano ANP 230 [place] [address] Erectile dysfunction, unspecified erectile dysfunction type Social [...] PM EDT Office Visit [facility] MEDICINE [address] [place] [address] Maritza Mariano ANP [address] [place] [address] 05/03/2025 1:00 PM EDT Office Visit [facility] OPTOMETRY [address] [place] [address] Tarka, Tiffani, OD [address] [place] [address] documented as of this encounter Visit Diagnoses Diagnosis Erectile dysfunction, unspecified erectile dysfunction type documented in this encounter Additional Health Concerns Assessment Noted Time PHQ-9 Depression Total Score: 12 024 3:12 PM EDT documented as of this encounter Care Teams Phlebotomist Relationship Specialty Start Date End Date aMritza Mariano ANP [address] [place] [address] PCP - General Family Medicine 09/06/22 documented as of this encounter
--- OUTSIDE RECORDS SUMMARY | 2024-11-26 15:59 | XMS_ITS | Encounter Summary ---
Author Organization [employer] Address 75 [facility] 7t [place] [address] Care Team Providers Care Bristle Machine Operator Name Role Phone Maritza Mariano Primary Care Provider [phone] Reason for Visit * Reason Comments Med Refill Encounter Details Date Type Department Care Team (Late st Contact Info) Description 07/28/2024 Refill [facility] MEDICINE [address] [place] [address] Maritza Mariano ANP 230 [place] [address] Erectile dysfunction, unspecified erectile dysfunction type Social [...] Visit [facility] MEDICINE [address] [place] [address] Maritza Mariano ANP [address] [place] [address] 05/03/2025 1:00 PM EDT Office Visit [facility] OPTOMETRY [address] [place] [address] Tiffani David, OD [address] [place] [address] documented as of this encounter Visit Diagnoses Diagnosis Erectile dysfunction, unspecified erectile dysfunction type documented in this encounter Additional Health Concerns Assessment Noted Time PHQ-9 Depression Total Score: 12 024 3:12 PM EDT documented as of this encounter Care Teams Bristle Machine Operator Relationship Specialty Start Date End Date Maritza Mariano ANP 230 [place] [address] PCP - General Family Medicine 09/06/22 documented as of this encounter
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
== END 2024-11-26 14:28 | disposition home or self-care (01) ==
LOC: HO.HHCX 14:27
PROVIDERS: Visit Provider Nurse Practitioner Primary Care
DX: M54.2 Cervicalgia (principal); M54.6 Pain in thoracic spine; M54.50 Low back pain, unspecified; V89.2XXD Person injured in unspecified motor-vehicle accident, traffic, 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
CPT/HCPCS: 72040; 72070; 72100

== ENCOUNTER → 2024-11-26 14:29 | Outpatient (BNV) | payer OTHER, SELFPAY | PROVIDERS: Visit Provider Radiology Diagnostic Radiology | DX: M54.2 Cervicalgia (principal); M47.894 Other spondylosis, thoracic region; M47.896 Other spondylosis, lumbar region | CPT/HCPCS: 72040; 72070; 72100 ==

== ENCOUNTER 2024-12-12 17:40 | Emergency (ER) | payer MEDICAID, SELFPAY ==
--- NOTE | ~2024-12-12 | XR_ITS ---
CLINICAL HISTORY: cough 2 view chest x-ray Comparison: None Findings: Normal heart size. No consolidation, pleural effusion or pneumothorax. No acute fracture. IMPRESSION: 1. No acute findings. This document has been electronically signed by: Yvonne Pollard MD on 12/12/2024 18:28:01
[2024-12-12 17:51] VITALS: BP 137/84; PULSE 88; RESP 16; TEMP 36.4; O2SAT 98; BMI 32.3
--- NOTE | 2024-12-12 17:51 | ED_ITS ---
HPI - URI/Sore Throat General Chief Complaint: Upper Respiratory Symptoms Stated Complaint: cough Time Seen by Provider: 12/12/24 18:00 Source: patient, RN notes reviewed and old records reviewed Mode of arrival: ambulatory Limitations: no limitations History of Present Illness ED Provider: Jake ANG Narrative: 44-year-old male past medical history significant for bilateral knee pain, ca rpal tunnel syndrome, asthma presents for evaluation of cough and body aches. Patient reports he has been coughing for the last 3 days, he has some burning chest pain while coughing. His is present with similar symptoms. The patient reports that he quit smoking/vaping 3 months ago. He denies any fevers, chills Denies any leg swelling or recent travel Denies any sore throat Related Data Home Medications ?Medication ?Instructions ?Recorded ?Confirmed albuterol sulfate 90 mcg/actuation 2 puff inhalation Q4-6H PRN 08/14/22 aerosol inhaler azelastine 137 mcg (0.1 %) nasal 2 spray intranasal BID PRN 09/13/22 spray congestion baclofen 10 mg tablet 10 mg PO TID PRN muscle spasm 09/13/22 cetirizine 10 mg tablet 10 mg PO QAM 09/13/22 diclofenac sodium 1 % topical gel 2 g topical pain 09/13/22 fluticasone propionate 110 2 puff inhalation 09/13/22 mcg/actuation HFA aerosol inhaler (Flovent HFA) omeprazole 20 mg capsule,delayed mg PO QAM 09/13/22 release bupropion HCl 300 mg 24 hr tablet, 300 mg PO QAM 06/25/24 extended release epinephrine 0.3 mg/0.3 mL IM DIRECTED 06/25/24 injection, auto-injector gabapentin 300 mg capsule 300 mg PO BID 06/25/24 losartan 50 mg tablet 50 mg PO DAILY 06/25/24 mirtazapine 30 mg tablet 30 mg PO BEDTIME 06/25/24 prazosin 1 mg capsule mg PO 06/25/24 risperidone 3 mg tablet 3 mg PO DAILY 06/25/24 sildenafil 50 mg tablet (Viagra) 50 - 100 mg PO DAILY PRN 06/25/24 Previous Rx's ?Medication ?Instructions ?Recorded ibuprofen 800 mg tablet 800 mg PO Q8H PRN for pain #90 tabs 11/05/22 Cane #1 ea 06/25/24 acetaminophen 500 mg tablet 1,000 mg (2 x 500 mg) PO Q6H PRN 11/04/24 (Tylenol Extra Strength) fever or pain #20 tabs cyclobenzaprine 10 mg tablet 10 mg PO TID PRN muscle pain or 11/04/24 spasm #20 tabs ibuprofen 400 mg tablet 400 mg PO TID PRN fever or pain 11/04/24 #30 tabs Allergies Allergy/AdvReac Type Severity Reaction Status Date / Time shellfish derived Allergy Unknown UNKNOWN Verified 12/12/24 17:53 [SHELLFISH DERIVED] PILESPSLINE Allergy Unknown UNKNOWN Uncoded 11/04/24 20:03 Review of Systems Constitutional: Constitutional: Denies body ache(s), Denies chills, Denies fever(s), Denies frequent falls and Denies headache(s) ENT: Denies vertigo, Denies dizziness and Denies headache(s) Cardiovascular: Cardiovascular: Reports chest pain (with coughing only) and Reports dyspnea Respiratory: Respiratory: Reports change in phlegm color, Reports chest congestion, Reports cough, Denies hemoptysis and Reports dyspnea Gastrointestinal: Gastrointestinal: Denies abdominal pain, Denies nausea and Denies vomiting Musculoskeletal: Musculoskeletal: Denies back pain Integumentary/Breasts: Skin/Breast: Denies rash Neurologic: Denies vertigo, Denies dizziness, Denies frequent falls and Denies headache(s) Psychiatric: Psychiatric: Denies anxiety [facility] Past Medical History Medical History (Updated 12/12/24 @ 18:34 by Robb Joseph) Asthma High cholesterol Surgical History (Updated 06/25/24 @ 15:05 by TERESA Yang) Hx of right knee surgery Social History Social History Patient Tobacco Use Status: Current everyday Tobacco user Advance Directives: No Advance Directives Information Provided: No Do you have a plan to hurt others: No Plan Current occupational status: disabled Current 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: left hand Physical Exam Vital Signs: Vital Signs: Last Vital Signs Temp 97.5 F 12/12/24 17:51 Pulse 88 12/12/24 17:51 Resp 16 12/12/24 17:51 BP 137/84 12/12/24 17:51 Pulse Ox 98 12/12/24 17:51 O2 Del Method Room Air 12/12/24 17:51 BMI result Body Mass Index 32.3 Const: General: healthy appearing, comfortable, no acute distress, alert and awake Nutritional Appearance: well nourished Orientation/consciousness: patient oriented x3 HEENT: Head: Yes normocephalic and Yes atraumatic Eyes: Eyelids: Yes eyelids normal Conjunctivae: conjunctivae normal Sclerae: sclerae normal Corneas: corneas normal Pupils: Equal, round and reactive pupils present EOM: EOMs intact bilaterally Neck: Neck: Yes full ROM Resp: Effort & Inspection: normal respiratory effort, able to speak in complete sentences, no audible wheezes and not labored Auscultation: clear to auscultation bilaterally Cardio: Rate: regular rate Rhythm: regular rhythm GI: Inspection: No distended Palpation (GI): Soft to palpation, not firm, nontender, no guarding and not rigid Skin: General skin exam: elasticity normal Neuro: General: patient oriented x3 Cranial nerves: Yes Equal, round and reactive pupils present and Yes Bilaterally intact EOM present Cognition (Neuro): normal cognition Course Course Course Narrative: This is an RME: Additional HPI, ROS, PE not included below will be deferred to primary provider. RME assessment and note performed by: Lolita Lai PA-C This is a 41-euyn-prp-male, hypertension, depression, anxiety, bipolar disorder, PTSD, pseudoseizure d/t head injury, who presents to the ER with a complaint of cough with yellow sputum x 3 days. Reporting chest pain with cough only. No fevers, chills, shortness of breath. +Sick contacts. Current smoker. Plan: Viral swabs, xray, further ER eval needed. Medical Decision Making Medical Decision Making MDM Narrative: 44-year-old male presents for evaluation of cough and body aches. He is here with his who has similar symptoms. Given they both have a cough and appear well they likely have a viral illness. His lungs are clear to auscultation, vital signs are stable. Chest x-ray shows no acute findings. Viral panel is pending. He has no findings to suggest. No risk Factors for PE and he was PERC negative Differential Diagnosis Differential Diagnoses: The differential diagnosis associated with the presentation includes Acute bronchitis Viral illness Upper respiratory infection Asthma exacerbation Pneumonia Lab Data Labs: Lab Results 12/12/24 Range/Units 18:21 Influenza Type A (PCR) NEGATIVE (Negative) Influenza Type B (PCR) NEGATIVE (Negative) RSV RNA Qual (PCR) NEGATIVE (Negative) SARS-CoV-2 RNA (RT-PCR) NEGATIVE (Negative) Independent Interpretation I performed an independent interpretation of an: Plain X-Ray Interpretation: Agree with Radiology interpretation. No focal consolidations Radiology Impression Discussion of test interpretation with radiology: I have reviewed the radiologist's reading. Radiologist Impression: Findings: Normal heart size. No consolidation, pleural effusion or pneumothorax. No acute fracture. IMPRESSION: 1. No acute findings. This document has been electronically signed by: Yvonne Pollard MD on 12/12/2024 18:28:01 Discharge Plan Discharge Clinical Impression: Cough Patient Disposition: Home, Self-Care Instructions: Acute Cough (ED) Additional Instructions: Workup in the ER today was reassuring. This includes your chest x-ray and viral swabs. Your symptoms may be related to quitting smoking a few months ago. You may use an ahpi-vex-krnjpwn cough medicine or decongestant Follow-up with your primary doctor, return for new or worsening symptoms Prescriptions: No Action ibuprofen 800 mg tablet 800 mg PO Q8H PRN (Reason: for pain) Qty: 90 0RF cyclobenzaprine 10 mg tablet 10 mg PO TID PRN (Reason: muscle pain or spasm) Qty: 20 0RF acetaminophen [Tylenol Extra Strength] 500 mg tablet 1,000 mg PO Q6H PRN (Reason: fever or pain) Qty: 20 0RF ibuprofen 400 mg tablet 400 mg PO TID PRN (Reason: fever or pain) Qty: 30 0RF albuterol sulfate 90 mcg/actuation HFA aerosol inhaler 2 puff inhalation Q4-6H PRN diclofenac sodium 1 % gel 2 g topical azelastine 137 mcg (0.1 %) aerosol,spray 2 spray intranasal BID PRN (Reason: congestion) omeprazole 20 mg capsule,delayed release(DR/EC) PO QAM baclofen 10 mg tablet 10 mg PO TID PRN (Reason: muscle spasm) cetirizine 10 mg tablet 10 mg PO QAM fluticasone propionate [Flovent HFA] 110 mcg/actuation HFA aerosol inhaler 2 puff inhalation sildenafil [Viagra] 50 mg tablet 50 - 100 mg PO DAILY PRN losartan 50 mg tablet 50 mg PO DAILY gabapentin 300 mg capsule 300 mg PO BID epinephrine 0.3 mg/0.3 mL auto-injector IM DIRECTED (DME) Abel See Rx Instructions .ROUTE .MEDSUPPLY Qty: 1 0RF Rx Instructions: As directed risperidone 3 mg tablet 3 mg PO DAILY bupropion HCl 300 mg tablet extended release 24 hr 300 mg PO QAM mirtazapine 30 mg tablet 30 mg PO BEDTIME prazosin 1 mg capsule PO Print Language: Nigerien
[2024-12-12 19:06] LABS: Influenza A PCR NEGATIVE (Negative); Influenza B PCR NEGATIVE (Negative); Resp Syncy Virus RNA Qual PCR NEGATIVE (Negative); SARS COV2 PCR INHOUSE NEGATIVE (Negative)
[2024-12-12 19:59] VITALS: BP 147/88; PULSE 83; RESP 19; TEMP 36.9; O2SAT 93
[2024-12-12 20:18] VITALS: BP 147/88; PULSE 83; RESP 19; TEMP 36.9; O2SAT 93
== END 2024-12-12 20:19 | disposition home or self-care (01) ==
PROVIDERS: Physician Assistant Medical; Emergency Provider Internal Medicine; PCP Internal Medicine Geriatric Medicine
DX: R05.9 Cough, unspecified (principal); J45.909 Unspecified asthma, uncomplicated; M25.562 Pain in left knee; M25.561 Pain in right knee; Z03.818 Encounter for observation for suspected exposure to other biological agents ruled out
CPT/HCPCS: 0241U; 71046; 99283; 99284

== ENCOUNTER → 2024-12-12 17:53 | Outpatient (BNV) | payer MEDICAID, SELFPAY | PROVIDERS: Emergency Provider Internal Medicine; PCP Internal Medicine Geriatric Medicine; Visit Provider Specialist | DX: R05.9 Cough, unspecified (principal) | CPT/HCPCS: 71046 ==

== ENCOUNTER 2025-01-07 11:21 | Outpatient (REF) | payer MEDICAID, SELFPAY ==
--- OUTSIDE RECORDS SUMMARY | 2025-01-07 12:31 | XMS_ITS | Encounter Summary ---
Author Organization [employer] Address [address] [place] [address] Care Team Providers Care Web Marketing Strategist Name Role Phone Montserrat Maritza JARA Primary Care Provider [phone] Encounter Details Date Type Department Care Team (Late st Contact Info) Description 12/09/2023 Orders Only [facility] MED & PEDS [address] [place] [address] Billy Lux MD [address] [place] [address] Moderate persistent asthma without complication Social History Tobacco Use Types Packs/Day Years Used Date Smoking Tobacco: Every Day Cigarettes 0.5 36.4 Started: 1988 Passive Smoke Exposure: Past Smokeless [...] Description 01/08/2025 2:30 PM EDT Office Visit [facility] MEDICINE [address] [place] [address] Maritza Mariano ANP [address] [place] [address] 05/03/2025 1:00 PM EDT Office Visit [facility] OPTOMETRY [address] [place] [address] Tiffani David, OD [address] [place] [address] documented as of this encounter Visit Diagnoses Diagnosis Moderate persistent asthma without complication documented in this encounter Care Teams Web Marketing Strategist Relationship Specialty Start Date End Date Maritza Mariano ANP [address] [place] [phone] PCP - General Family Medicine 09/06/22 documented as of this encounter
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
--- OUTSIDE RECORDS SUMMARY | 2025-01-07 12:31 | XMS_ITS | Encounter Summary ---
Author Organization [employer] Address 75 [facility] 7t [place] [address] Care Team Providers Care Derrick Worker Name Role Phone Maritza Mariano Primary Care Provider [phone] Reason for Visit * Reason Onset Date Comments Appointment Request 11/23/2024 Encounter Details Date Type Department Care Team ([facility] st Contact Info) Description 11/23/2024 Telephone [facility] MEDICINE [address] [place] [address] Maritza Mariano ANP 230 [place] [address] Appointment Request Social History Tobacco Use Types [...] PM EDT documented as of this encounter Functional Status * Over the past 2 weeks, how often have you been bothered by any of the following problems? Question Answer Date of Assessment Author Patient Health Questionnaire-2 Score 4 10/2024 1:49 PM EDT Verito Martino MA * Little interest or pleasure in doing things Answer Date of Assessment Author Nearly every day 11/26/2024 1:49 PM EDT Verito Martino MA * Feeling down, depressed, or hopeless Answer Date of Assessment Author Several days 11/26/2024 1:49 PM EDT Verito Martino MA * Trouble falling or staying asleep, or sleeping too much Answer Date of Assessment Author Nearly every day 11/26/2024 1:49 PM EDT Verito Martino MA * Feeling tired or having little energy Answer Date of Assessment Author Not at all 11/26/2024 1:49 PM EDT Verito Martino MA * Poor appetite or overeating Answer Date of Assessment Author Several days 11/26/2024 1:49 PM EDT Verito Martino MA * Feeling bad about yourself - or that you are a failure or have let yourself or your family down Answer Date of Assessment Author Several days 11/26/2024 1:49 PM EDT Verito Martino MA * Trouble concentrating on things, such as reading the newspaper or watching television Answer Date of Assessment Author Nearly every day 11/26/2024 1:49 PM EDT Verito Martino MA * Moving or speaking so slowly that other people could have noticed? Or the opposite - being so fidgety or restless that you have been moving around a lot more than usual. Answer Date of Assessment Author Several days 11/26/2024 1:49 PM EDT Verito Martino MA * Thoughts that you would be better off or hurting yourself in some way Answer Date of Assessment Author Not at all 11/26/2024 1:49 PM EDT Verito Martino MA * Patient Health Questionnaire-9 Score Answer Date of Assessment Author 13 11/26/2024 1:49 PM EDT Verito Martino MA * How difficult have these problems made it for you to do your work, take care of things at home, or get along with other people? Answer Date of Assessment Author Extremely difficult 11/26/2024 1:49 PM EDT Verito Ruggiero MA * Over the last 2 weeks, how often have you been bothered by any of the following problems? Question Answer Date of Assessment Author Feeling nervous, anxious, or on edge 1 10/2024 1:49 PM EDT Verito Martino MA Not being able to stop or co ntrol worrying 1 11/26/2024 1:49 PM EDT Verito Martino M A Worrying too much about diff erent things 3 11/26/2024 1:49 PM EDT Verito Martino M A Trouble relaxing 3 11/26/2024 1:49 PM EDT Verito Munoz MA Being so restless that it is hard to sit still 3 11/26/2024 1:49 PM EDVerito Gardner M A Becoming easily annoyed or irritable 3 10/2024 1:49 PM EDT Verito Martino MA Feeling afraid as if somethi ng awful might happen 1 11/26/2024 1:49 PM EDT Verito Martino M A KIMMY-7 Total Score 15 11/26/2024 1:49 PM EDT Verito Martino MA documented as of this encounter Miscellaneous Notes * Telephone Encounter - Bernardo Gimenez - 11/23/2024 3:29 PM EDT Tc from spouse requesting to reschedule sick on site appointment. Please return call [phone] documented in this encounter Plan of Treatment Upcoming Encounters Date Type Department Care Team (Late st Contact Info) Description 01/08/2025 2:30 PM EDT Office Visit [facility] MED[facility]INE [address] [place] [address] Maritza Mariano ANP [address] [place] [address] 05/03/2025 1:00 PM EDT Office Visit [facility] OPTOMETRY [address] [place] [address] Tiffani David, OD [address] [place] [address] documented as of this encounter Visit Diagnoses Not on filedocumented in this encounter Additional Health Concerns Assessment Noted Time PHQ-9 Depression Total Score: 12 024 3:12 PM EDT documented as of this encounter Care Teams Derrick Worker Relationship Specialty Start Date End Date Maritza Mariano ANP [address] [place] [phone] PCP - General Family Medicine 09/06/22 documented as of this encounter
--- OUTSIDE RECORDS SUMMARY | 2025-01-07 12:31 | XMS_ITS | Encounter Summary ---
Author Organization [employer] Address 75 [facility] 7t [place] [address] Care Team Providers Care Gag Writer Name Role Phone Maritza Mariano Primary Care Provider [phone] Reason for Visit * Reason Comments Med Refill Encounter Details Date Type Department Care Team (Late st Contact Info) Description 12/04/2023 Refill [facility] MEDICINE [address] [place] [address] Maritza Mariano ANP 230 [place] [address] Erectile dysfunction, unspecified erectile dysfunction type Social [...] Description 01/08/2025 2:30 PM EDT Office Visit [facility] MEDICINE [address] [place] [address] Maritza Mariano ANP 230 [place] [address] 05/03/2025 1:00 PM EDT Office Visit [facility] OPTOMETRY [address] [place] [address] Tiffani David, OD [address] [place] [address] documented as of this encounter Visit Diagnoses Diagnosis Erectile dysfunction, unspecified erectile dysfunction type documented in this encounter Care Teams Gag Writer Relationship Specialty Start Date End Date Maritza Mariano ANP [address] [place] [address] PCP - General Family Medicine 09/06/22 documented as of this encounter
--- OUTSIDE RECORDS SUMMARY | 2025-01-07 12:31 | XMS_ITS | Encounter Summary ---
Author Organization [employer] Address [address] [place] [address] 7t [place] [address] Care Team Providers Care Tech Ed Teacher Name Role Phone Maritza Mariano Primary Care Provider [phone] Reason for Visit * Reason Onset Date Comments Medication Question 05/01/2023 sildenafil ( Viagra) 50 MG tablet Encounter Details Date Type Department Care Team (Late st Contact Info) Description 05/01/2023 Telephone [facility] MEDICINE [address] [place] [address] Maritza Mariano ANP [address] [place] [address] Medication Question (sildenafil (Viagra) 50 MG tablet//) [...] Description 01/08/2025 2:30 PM EDT Office Visit [facility] MEDICINE [address] [place] [address] Maritza Mariano ANP [address] [place] [address] 05/03/2025 1:00 PM EDT Office Visit [facility] OPTOMETRY [address] [place] [address] Tarka, Tiffani, OD 267 [place] [address] documented as of this encounter Visit Diagnoses Not on filedocumented in this encounter Care Teams Tech Ed Teacher Relationship Specialty Start Date End Date Maritza Mariano ANP [address] [place] [address] PCP - General Family Medicine 09/06/22 documented as of this encounter
--- OUTSIDE RECORDS SUMMARY | 2025-01-07 12:31 | XMS_ITS | Encounter Summary ---
Author Organization [employer] Address [address] [place] [address] 7t [place] [address] Care Team Providers Care Talent Buyer Name Role Phone Montserrat Maritza JARA Primary Care Provider [phone] Reason for Visit * Reason Onset Date Comments case back from lab 02/07/2023 Encounter Details Date Type Department Care Team (Late st Contact Info) Description 02/07/2023 Telephone [facility] [address] [place] [address] Arian Sandhu, DDS [address] [place] [address] case back from lab Social History Tobacco [...] Description 01/08/2025 2:30 PM EDT Office Visit [facility] [address] [place] [address] Maritza Mariano ANP 230 [place] [address] 05/03/2025 1:00 PM EDT Office Visit [facility] OPT[facility] [address] [place] [address] Tiffani David, OD [address] [place] [address] documented as of this encounter Visit Diagnoses Not on filedocumented in this encounter Care Teams Talent Buyer Relationship Specialty Start Date End Date Maritza Mariano ANP [address] [place] [address] PCP - General Family Medicine 09/06/22 documented as of this encounter
--- OUTSIDE RECORDS SUMMARY | 2025-01-07 12:31 | XMS_ITS | Encounter Summary ---
Author Organization [employer] Address [address] [place] [address] 7t [place] [address] Care Team Providers Care Handbook Writer Name Role Phone Maritza Mariano Primary Care Provider [phone] Reason for Visit * Reason Onset Date Comments Med Refill 11/08/2022 Encounter Details Date Type Department Care Team (Late st Contact Info) Description 11/08/2022 Telephone [facility]INE 230 [place] [address] Maritza Mariano ANP 230 [place] [address] Med Refill Social History Tobacco Use Types [...] 10:53 AM EDT Medication was sent to [id number] on 09/06/22 Qty: 90 with 1 refill. * Telephone Encounter - Bijal Ortiz - 11/08/2022 10:23 AM EDT Tc from pt requesting med refill for medication omeprazole OTC (PriLOSEC OTC) 20 MG EC tablet. documented in this encounter Plan of Treatment Upcoming Encounters Date Type Department Care Team (Late st Contact Info) Description 01/08/2025 2:30 PM EDT Office Visit [facility] MEDICINE 230 [place] [address] Maritza Mariano ANP [address] [place] [address] 05/03/2025 1:00 PM EDT Office Visit [facility] OPTOMETRY [address] [place] [address] TarTiffani chow, OD 267 [place] [address] documented as of this encounter Visit Diagnoses Not on filedocumented in this encounter Care Teams Handbook Writer Relationship Specialty Start Date End Date Maritza Mariano ANP [address] [place] [address] PCP - General Family Medicine 09/06/22 documented as of this encounter
--- OUTSIDE RECORDS SUMMARY | 2025-01-07 12:31 | XMS_ITS | Encounter Summary ---
Author Organization [employer] Address [address] [place] [address] 7t [place] [address] Care Team Providers Care Cloth Inspector Name Role Phone Montserrat Maritza JARA Primary Care Provider [phone] Reason for Visit * Reason Onset Date Comments Med Refill 02/20/2024 Encounter Details Date Type Department Care Team (Late st Contact Info) Description 02/20/2024 Refill [facility]INE [address] [place] [address] Katerin Phan MD 230 [place] [address] Chronic neck pain Social History Tobacco Use [...] [facility] [address] [place] [address] Maritza Mariano ANP 230 [place] [address] 05/03/2025 1:00 PM EDT Office Visit [facility] OPTOMETRY [address] [place] [address] Tarka, Tiffani, OD [address] [place] [address] documented as of this encounter Visit Diagnoses Diagnosis Chronic neck pain Cervicalgia documented in this encounter Additional Health Concerns Assessment Noted Time PHQ-9 Depression Total Score: 12 024 3:12 PM EDT documented as of this encounter Care Teams Cloth Inspector Relationship Specialty Start Date End Date Maritza Mariano ANP [address] [place] [id number] PCP - General Family Medicine 09/06/22 documented as of this encounter
--- OUTSIDE RECORDS SUMMARY | 2025-01-07 12:31 | XMS_ITS | Encounter Summary ---
Author Organization [employer] Address 75 [facility] 7t [place] [address] Care Team Providers Care Ammunition Components Inspector Name Role Phone Maritza Mariano Primary Care Provider [phone] Reason for Visit * Reason Comments Med Refill Encounter Details Date Type Department Care Team (Late st Contact Info) Description 07/28/2024 Refill [facility] MEDICINE [address] [place] [address] Maritza Mariano ANP 230 [place] [address] Erectile dysfunction, unspecified erectile dysfunction type Social [...] Description 01/08/2025 2:30 PM EDT Office Visit [facility] [address] [place] [address] Maritza Mariano ANP 230 [place] [address] 05/03/2025 1:00 PM EDT Office Visit [facility] OPTOMETRY [address] [place] [address] Tiffani David, OD [address] [place] [address] documented as of this encounter Visit Diagnoses Diagnosis Erectile dysfunction, unspecified erectile dysfunction type documented in this encounter Additional Health Concerns Assessment Noted Time PHQ-9 Depression Total Score: 12 024 3:12 PM EDT documented as of this encounter Care Teams Ammunition Components Inspector Relationship Specialty Start Date End Date Maritza Mariano ANP 230 [place] [address] PCP - General Family Medicine 09/06/22 documented as of this encounter
--- OUTSIDE RECORDS SUMMARY | 2025-01-07 12:31 | XMS_ITS | Encounter Summary ---
Author Organization [employer] Address [address] [place] [address] 7t [place] [address] Care Team Providers Care Group Fitness Assistant Department Head Name Role Phone Maritza Mariano Primary Care Provider [phone] Encounter Details Date Type Department Care Team (Late st Contact Info) Description 09/04/2022 Orders Only [facility] MEDICINE [address] [place] [address] Modesta Moore LPN Social History Tobacco Use Types Packs/Day Years Used Date Smoking Tobacco: Every Day Cigarettes 0.5 36.4 Started: 1988 Passive Smoke Exposure: Current Smokeless [...] Description 01/08/2025 2:30 PM EDT Office Visit [facility] MEDICINE [address] [place] [address] Maritza Mariano ANP 230 [place] [address] 05/03/2025 1:00 PM EDT Office Visit [facility] [address] [place], [place] [phone] Tiffani David, [place] [address] [place] [address] documented as of this encounter Visit Diagnoses Not on filedocumented in this encounter Care Teams Group Fitness Assistant Department Head Relationship Specialty Start Date End Date Maritza Mariano ANP [address] [place] [address] PCP - General Family Medicine 09/06/22 documented as of this encounter
--- OUTSIDE RECORDS SUMMARY | 2025-01-07 12:31 | XMS_ITS | Encounter Summary ---
Author Organization [employer] Address [address] [place] [address] 7t [place] [address] Care Team Providers Care Crate Tier Name Role Phone Maritza Mariano Primary Care Provider [phone] Reason for Visit * Reason Comments Med Refill Encounter Details Date Type Department Care Team (Late st Contact Info) Description 12/21/2022 Refill [facility] MEDICINE [address] [place] [address] Maritza Mariano ANP [address] [place] [address] Erectile dysfunction, unspecified erectile dysfunction type; Allergic [...] Visit [facility] MEDICINE [address] [place] [address] Maritza Mariano ANP [address] [place] [address] 05/03/2025 1:00 PM EDT Office Visit [facility] OPTOMETRY [address] [place] [address] TarkaTiffani, OD [address] [place] [address] documented as of this encounter Visit Diagnoses Diagnosis Erectile dysfunction, unspecified erectile dysfunction type Allergic rhinitis due to other allergic trigger, unspecified seasonality documented in this encounter Care Teams Crate Tier Relationship Specialty Start Date End Date Maritza Mariano ANP [address] [place] [address] PCP - General Family Medicine 09/06/22 documented as of this encounter
--- OUTSIDE RECORDS SUMMARY | 2025-01-07 12:31 | XMS_ITS | Encounter Summary ---
Author Organization [employer] Address 75 [facility] 7t [place] [address] Care Team Providers Care Counter Pocket Trimmer Name Role Phone Maritza Mariano Primary Care Provider [phone] Reason for Visit * Reason Onset Date Comments Appointment Request 01/24/2024 Encounter Details Date Type Department Care Team ([facility] Contact Info) Description 01/24/2024 Telephone [facility] MEDICINE [address] [place] [address] Maritza Mariano ANP 230 [place] [address] Appointment Request Social History Tobacco Use Types [...] Office Visit [facility] MEDICINE [address] [place] [address] Maritza Mariano ANP 230 [place] [address] 05/03/2025 1:00 PM EDT Office Visit [facility] OPTOMETRY [address] [place] [address] Tiffani David, OD [address] [place] [address] documented as of this encounter Visit Diagnoses Not on filedocumented in this encounter Additional Health Concerns Assessment Noted Time PHQ-9 Depression Total Score: 12 024 3:12 PM EDT documented as of this encounter Care Teams Counter Pocket Trimmer Relationship Specialty Start Date End Date Maritza Mariano ANP [address] [place] [address] PCP - General Family Medicine 09/06/22 documented as of this encounter
--- OUTSIDE RECORDS SUMMARY | 2025-01-07 12:32 | XMS_ITS | Encounter Summary ---
Author Organization [employer] Address 75 [facility] 7t [place] [address] Care Team Providers Care Head Loader Name Role Phone Maritza Mariano Primary Care Provider [phone] Reason for Visit * Reason Comments Med Refill Encounter Details Date Type Department Care Team (Late st Contact Info) Description 05/25/2024 Refill [facility] MEDICINE [address] [place] [address] Maritza Mariano ANP [address] [place] [address] Erectile dysfunction, unspecified erectile dysfunction type Social [...] Visit [facility] MEDICINE [address] [place] [address] Maritza Mariano ANP [address] [place] [address] 05/03/2025 1:00 PM EDT Office Visit [facility] OPTOMETRY [address] [place] [address] Tarka, Tiffani, OD [address] [place] [address] documented as of this encounter Visit Diagnoses Diagnosis Erectile dysfunction, unspecified erectile dysfunction type documented in this encounter Additional Health Concerns Assessment Noted Time PHQ-9 Depression Total Score: 12 024 3:12 PM EDT documented as of this encounter Care Teams Head Loader Relationship Specialty Start Date End Date Maritza Mariano ANP [address] [place] [address] PCP - General Family Medicine 09/06/22 documented as of this encounter
--- OUTSIDE RECORDS SUMMARY | 2025-01-07 12:32 | XMS_ITS | Encounter Summary ---
Author Organization [employer] Address 75 [facility] 7t [place] [address] Care Team Providers Care Shredder Picker Name Role Phone Maritza Mariano Primary Care Provider [phone] Reason for Visit * Reason Comments Med Refill Encounter Details Date Type Department Care Team (Late st Contact Info) Description 09/09/2024 Refill [facility] MEDICINE [address] [place] [address] Maritza Mariano ANP [address] [place] [address] Erectile dysfunction, unspecified erectile dysfunction type Social [...] Description 01/08/2025 2:30 PM EDT Office Visit [facility] MEDICINE 230 [place] [address] Maritza Mariano ANP 230 [place] [address] 05/03/2025 1:00 PM EDT Office Visit [facility] OPTOMETRY [address] [place] [address] Tiffani David, OD [address] [place] [address] documented as of this encounter Visit Diagnoses Diagnosis Erectile dysfunction, unspecified erectile dysfunction type documented in this encounter Additional Health Concerns Assessment Noted Time PHQ-9 Depression Total Score: 12 024 3:12 PM EDT documented as of this encounter Care Teams Shredder Picker Relationship Specialty Start Date End Date Maritza Mariano ANP [address] [place] [address] PCP - General Family Medicine 09/06/22 documented as of this encounter
--- OUTSIDE RECORDS SUMMARY | 2025-01-07 12:32 | XMS_ITS | Encounter Summary ---
Author Organization [employer] Address 75 [facility] 7t [place] [address] Care Team Providers Care Aircraft Ordnance Systems Mechanic Name Role Phone Maritza Mariano Primary Care Provider [phone] Reason for Visit * Reason Comments Med Refill Encounter Details Date Type Department Care Team (Late st Contact Info) Description 12/26/2024 Refill [facility] MEDICINE [address] [place] [address] Maritza Mariano ANP [address] [place] [address] Erectile dysfunction, unspecified erectile dysfunction type Social [...] 01/08/2025 2:30 PM EDT Office Visit [facility] MEDICINE [address] [place] [address] Maritza Mariano ANP [address] [place] [address] 05/03/2025 1:00 PM EDT Office Visit [facility] OPTOMETRY [address] [place] [address] Tiffani David, OD [address] [place] [address] documented as of this encounter Visit Diagnoses Diagnosis Erectile dysfunction, unspecified erectile dysfunction type documented in this encounter Additional Health Concerns Assessment Noted Time PHQ-9 Depression Total Score: 13 025 1:49 PM EDT documented as of this encounter Care Teams Aircraft Ordnance Systems Mechanic Relationship Specialty Start Date End Date Maritza Mariano ANP [address] [place] [address] PCP - General Family Medicine 09/06/22 documented as of this encounter
--- OUTSIDE RECORDS SUMMARY | 2025-01-07 12:32 | XMS_ITS | Encounter Summary ---
Author Organization [employer] Address 75 [facility] 7t [place] [address] Care Team Providers Care Tests Superintendent Name Role Phone Maritza Mariano Primary Care Provider [phone] Reason for Visit * Reason Comments Med Refill Encounter Details Date Type Department Care Team (Late st Contact Info) Description 05/25/2024 Refill [facility] MEDICINE [address] [place] [address] Maritza Mariano ANP 230 [place] [address] Erectile dysfunction, unspecified erectile dysfunction type Social [...] 01/08/2025 2:30 PM EDT Office Visit [facility] MEDICINE [address] [place] [address] Maritza Mariano ANP 230 [place] [address] 05/03/2025 1:00 PM EDT Office Visit [facility] OPTOMETRY [address] [place] [address] Tarka, Tiffani, OD [address] [place] [address] documented as of this encounter Visit Diagnoses Diagnosis Erectile dysfunction, unspecified erectile dysfunction type documented in this encounter Additional Health Concerns Assessment Noted Time PHQ-9 Depression Total Score: 12 024 3:12 PM EDT documented as of this encounter Care Teams Tests Superintendent Relationship Specialty Start Date End Date Maritza Mariano ANP [address] [place] [address] PCP - General Family Medicine 09/06/22 documented as of this encounter
[2025-01-07 13:25] LABS: MANUAL DIFF FLAG NO
[2025-01-07 13:41] LABS: Basophils Absolute Auto 0.1 X10*3/uL (0.0-0.2); Basophils Percent Auto 0.9 % (0-2); Eosinophils Absolute Auto 0.7 X10*3/uL (0.0-0.4); Eosinophils Percent Auto 6.3 % (0-4); Hematocrit 42.5 % (42.0-52.0); Imm Gran Abs Auto 0.06 X10*3/uL (0.00-0.03); Imm Gran Pct Auto 0.5 % (0.0-0.4); Lymphocytes Absolute Auto 3.7 X10*3/uL (1.2-4.9); Lymphocytes Percent Auto 33.1 % (20-40); MANUAL DIFF FLAG SCAN; Mean Corpuscular HGB Conc 32.9 g/dl (31.0-36.0); Mean Corpuscular Hemoglobin 26.6 pg (27.0-33.0); Mean Corpuscular Volume 80.6 fL (80.0-98.0); Mean Platelet Volume 8.9 fL (9.4-12.4); Monocytes Absolute Auto 1.5 X10*3/uL (0.1-1.2); Monocytes Percent Auto 13.6 % (2-11); Neutrophils Absolute Auto 5.1 x10*3/uL (2.0-8.3); Neutrophils Percent Auto 45.6 % (45-73); Platelet Count 349 X10*3/uL (160-400); Red Blood Count 5.27 X10*6/uL (4.60-5.80); Red Cell Distribution Width 14.5 % (11.0-16.0); SCAN SMEAR FLAG 1; White Blood Count 11.2 X10*3/uL (4.8-10.8)
[2025-01-07 13:42] LABS: Basophils Absolute Auto 0.1 X10*3/uL (0.0-0.2); Basophils Percent Auto 1.2 % (0-2); Eosinophils Absolute Auto 0.7 X10*3/uL (0.0-0.4); Eosinophils Percent Auto 6.1 % (0-4); Imm Gran Abs Auto 0.05 X10*3/uL (0.00-0.03); Imm Gran Pct Auto 0.5 % (0.0-0.4); Lymphocytes Absolute Auto 3.8 X10*3/uL (1.2-4.9); Lymphocytes Percent Auto 34.9 % (20-40); Mean Corpuscular HGB Conc 32.6 g/dl (31.0-36.0); Mean Corpuscular Hemoglobin 26.2 pg (27.0-33.0); Mean Corpuscular Volume 80.4 fL (80.0-98.0); Monocytes Absolute Auto 1.4 X10*3/uL (0.1-1.2); Monocytes Percent Auto 12.5 % (2-11); Neutrophils Absolute Auto 4.8 x10*3/uL (2.0-8.3); Neutrophils Percent Auto 44.8 % (45-73); Platelet Count 355 X10*3/uL (160-400); Red Blood Count 5.35 X10*6/uL (4.60-5.80); Red Cell Distribution Width 14.5 % (11.0-16.0); White Blood Count 10.8 X10*3/uL (4.8-10.8)
[2025-01-07 14:01] LABS: Alanine Aminotransferase 41 U/L (0-40); Albumin Level 4.2 g/dL (3.5-5.0); Alkaline Phosphatase 118 U/L (39-117); Anion Gap 14 (12-20); Aspartate Amino Transferase 36 U/L (5-37); Bilirubin Total 0.3 mg/dL (0.0-1.0); Blood Urea Nitrogen 21 mg/dL (9-16); Calcium 9.1 mg/dL (8.4-10.2); Carbon Dioxide 24 mmol/L (22-29); Chloride 104 mmol/L (96-108); Cholesterol 286 mg/dL (<200); Estimated Glomerular Filt Rate 56; Glucose Random 111 mg/dL (60-115); HDL Cholesterol 37 mg/dL (>40); Potassium 5.4 mmol/L (3.3-5.1); Sodium 137 mmol/L (135-145); Total Protein 7.3 g/dL (6.5-8.0); Triglycerides 508 mg/dL (<150)
[2025-01-07 14:02] LABS: SLIDE REVIEW VERIFIED
[2025-01-07 14:03] LABS: Alanine Aminotransferase 46 U/L (0-40); Albumin Level 4.3 g/dL (3.5-5.0); Alkaline Phosphatase 119 U/L (39-117); Anion Gap 13 (12-20); Aspartate Amino Transferase 35 U/L (5-37); Bilirubin Total 0.3 mg/dL (0.0-1.0); Blood Urea Nitrogen 22 mg/dL (9-16); Calcium 8.9 mg/dL (8.4-10.2); Carbon Dioxide 25 mmol/L (22-29); Chloride 105 mmol/L (96-108); Cholesterol 286 mg/dL (<200); Estimated Glomerular Filt Rate 55; Glucose Fasting 112 mg/dL (60-99); HDL Cholesterol 36 mg/dL (>40); Potassium 5.4 mmol/L (3.3-5.1); Sodium 138 mmol/L (135-145); Total Protein 7.4 g/dL (6.5-8.0); Triglycerides 508 mg/dL (<150)
[2025-01-07 14:22] LABS: TSH reflex Free T4 1.56 uIU/mL (0.32-4.0)
[2025-01-11 21:43] LABS: Testosterone, Free 48.7 pg/mL (35.0-155.0); Testosterone, Total 306 ng/dL (250-1100)
== END 2025-01-07 11:22 | disposition home or self-care (01) ==
LOC: HO.HHCL 11:21
PROVIDERS: Nurse Practitioner Psychiatric/Mental Health; Visit Provider Nurse Practitioner Primary Care
DX: E78.5 Hyperlipidemia, unspecified (principal); R25.1 Tremor, unspecified; N52.9 Male erectile dysfunction, unspecified; Z79.899 Other long term (current) drug therapy
CPT/HCPCS: 36415; 80053; 80061; 84402; 84403; 84443; 85025

== ENCOUNTER 2025-01-08 16:21 | Outpatient (REF) | payer MEDICAID, SELFPAY ==
--- OUTSIDE RECORDS SUMMARY | 2025-01-08 16:24 | XMS_ITS | Encounter Summary ---
Author Organization [employer] Address 75 [facility] 7t [place] [address] Care Team Providers Care Director Of Quality Name Role Phone Maritza Mariano Primary Care Provider [phone] Reason for Visit * Reason Comments Med Refill Encounter Details Date Type Department Care Team (Late st Contact Info) Description 12/04/2023 Refill [facility] MEDICINE [address] [place] [address] Maritza aMriano ANP 230 [place] [address] Erectile dysfunction, unspecified erectile dysfunction type Social [...] Care Team (Late st Contact Info) Description 04/12/2025 2:00 PM EDT Office Visit [facility] MEDICINE 230 [place] [address] Maritza Mariano ANP 230 [place] [address] 05/03/2025 1:00 PM EDT Office Visit [facility] OPTOMETRY [address] [place] [address] Tiffani David, OD [address] [place] [address] documented as of this encounter Visit Diagnoses Diagnosis Erectile dysfunction, unspecified erectile dysfunction type documented in this encounter Care Teams Director Of Quality Relationship Specialty Start Date End Date Maritza Mariano ANP [address] [place] [address] PCP - General Family Medicine 09/06/22 documented as of this encounter
--- OUTSIDE RECORDS SUMMARY | 2025-01-08 16:24 | XMS_ITS | Encounter Summary ---
Author Organization [employer] Address [address] [place] [address] 7t [place] [address] Care Team Providers Care Sed High School Teacher Name Role Phone Maritza Mariano Primary Care Provider [phone] Reason for Visit * Reason Comments Med Refill Encounter Details Date Type Department Care Team (Late st Contact Info) Description 12/21/2022 Refill [facility] [address] [place] [address] Maritza Mariano ANP [address] [place] [address] Erectile dysfunction, unspecified erectile dysfunction type; Allergic [...] Description 04/12/2025 2:00 PM EDT Office Visit [facility] [address] [place] [address] Maritza Mariano ANP [address] [place] [address] 05/03/2025 1:00 PM EDT Office Visit [facility] [address] [place] [address] TarkaTiffani, OD [address] [place] [address] documented as of this encounter Visit Diagnoses Diagnosis Erectile dysfunction, unspecified erectile dysfunction type Allergic rhinitis due to other allergic trigger, unspecified seasonality documented in this encounter Care Teams Sed High School Teacher Relationship Specialty Start Date End Date Maritza Mariano ANP [address] [place] [id number] PCP - General Family Medicine 09/06/22 documented as of this encounter
--- OUTSIDE RECORDS SUMMARY | 2025-01-08 16:24 | XMS_ITS | Encounter Summary ---
Author Organization [employer] Address [address] [place] [address] 7t [place] [address] Care Team Providers Care Reverberatory Furnace Supervisor Name Role Phone Montserrat Maritza JARA Primary Care Provider [phone] Reason for Visit * Reason Onset Date Comments Med Refill 02/20/2024 Encounter Details Date Type Department Care Team (Late st Contact Info) Description 02/20/2024 Refill [facility] [address] [place] [address] Katerin Phan MD [address] [place] [address] Chronic neck pain Social History Tobacco Use [...] Description 04/12/2025 2:00 PM EDT Office Visit [facility]INE [address] [place] [address] Maritza Mariano ANP [address] [place] [address] 05/03/2025 1:00 PM EDT Office Visit [facility] OPTOMETRY [address] [place] [address] Tarka, Tiffani, OD [address] [place] [address] documented as of this encounter Visit Diagnoses Diagnosis Chronic neck pain Cervicalgia documented in this encounter Additional Health Concerns Assessment Noted Time PHQ-9 Depression Total Score: 12 024 3:12 PM EDT documented as of this encounter Care Teams Reverberatory Furnace Supervisor Relationship Specialty Start Date End Date Maritza Mariano ANP [address] [place] [id number] PCP - General Family Medicine 09/06/22 documented as of this encounter
--- OUTSIDE RECORDS SUMMARY | 2025-01-08 16:24 | XMS_ITS | Encounter Summary ---
Author Organization [employer] Address [address] [facility] 7t [place] [address] Care Team Providers Care Skein Mercerizing Machine Operator Name Role Phone Maritza Mariano Primary Care Provider Reason for Visit * Reason Onset Date Comments Appointment Request 01/24/2024 Encounter Details Date Type Department Care Team ([facility] Contact Info) Description 01/24/2024 Telephone [facility] [address] [place] [address] Maritza Mariano ANP [address] [place] [address] Appointment Request Social History Tobacco Use Types [...] Description 04/12/2025 2:00 PM EDT Office Visit [facility] [address] [place] [address] Maritza Mariano ANP [address] [place] [address] 05/03/2025 1:00 PM EDT Office Visit [facility] OPTOMETRY [address] [place] [address] Tiffani David, OD [address] [place] [address] documented as of this encounter Visit Diagnoses Not on filedocumented in this encounter Additional Health Concerns Assessment Noted Time PHQ-9 Depression Total Score: 12 024 3:12 PM EDT documented as of this encounter Care Teams Skein Mercerizing Machine Operator Relationship Specialty Start Date End Date Maritza Mariano ANP [address] [place] [phone] PCP - General Family Medicine 09/06/22 documented as of this encounter
--- OUTSIDE RECORDS SUMMARY | 2025-01-08 16:24 | XMS_ITS | Encounter Summary ---
Author Organization [employer] Address [address] [facility] 7t [place] [address] Care Team Providers Care Teenage Program Director Name Role Phone Maritza Mariano Primary Care Provider [phone] Reason for Visit * Reason Onset Date Comments CHART PREP 01/08/2025 Encounter Details Date Type Department Care Team ([facility] st Contact Info) Description 01/08/2025 Telephone [facility] MED[facility] [address] [place] [address] Maritza Mariano ANP [address] [place] [address] CHART PREP Social History Tobacco Use Types Packs/Day Years [...] encounter Miscellaneous Notes * Telephone Encounter - Lashanda Rao [place] - 01/08/2025 8:45 AM EDT Chart Prep Labs: done 01/07/25 BMP not done Images: done cervical, lumbar and thoracic 11/26/24 Referrals: Neuro 12/23/24 need to call office to verify if pt kept appt Vaccines due: not applicable Screenings: not applicable Overdue care gaps: Oral health screening and Disability screen documented in this encounter Plan of Treatment Upcoming Encounters Date Type Department Care Team (Late st Contact Info) Description 04/12/2025 2:00 PM EDT Office Visit [facility] MED[facility]INE [address] [place] [address] Maritza Mariano ANP [address] [place] [address] 05/03/2025 1:00 PM EDT Office Visit [facility] OPTOMETRY [address] [place] [address] Tiffani David, OD [address] [place] [address] documented as of this encounter Visit Diagnoses Not on filedocumented in this encounter Additional Health Concerns Assessment Noted Time PHQ-9 Depression Total Score: 13 025 1:49 PM EDT documented as of this encounter Care Teams Teenage Program Director Relationship Specialty Start Date End Date Maritza Mariano ANP [address] [place] [address] PCP - General Family Medicine 09/06/22 documented as of this encounter
--- OUTSIDE RECORDS SUMMARY | 2025-01-08 16:24 | XMS_ITS | Encounter Summary ---
Author Organization [employer] Address [address] [place] [address] 7t [place] [address] Care Team Providers Care Planning Consultant Name Role Phone Maritza Mariano Primary Care Provider [phone] Reason for Visit * Reason Comments Annual Exam Encounter Details Date Type Department Care Team (Late st Contact Info) Description 01/08/2025 2:30 PM EDT Office Visit [facility]INE [address] [place] [address] Maritza Mariano ANP [address] [place] [address] Hyperkalemia (Primary Dx); Mixed hyperlipidemia; Primary hypertension; Chronic low back pain, unspecified back pain laterality, unspecified whether sciatica present; Chronic neck pain; Erectile dysfunction, unspecified erectile dysfunction type; Hypertriglyceridemia Social History Tobacco Use Types Packs/Day Years [...] the past 12 months, has t he Property Partner, gas, oil or water company threatened to [...] Sign Reading Time Taken Comments Blood Pressure 130/85 01/08/2025 2:05 PM EDT Pulse 95 01/08/2025 2:05 PM EDT Temperature - - Respiratory Rate 16 01/08/2025 2:05 PM EDT Oxygen Saturation - - Inhaled Oxygen Concentration - - Weight 90.3 kg (199 lb) 01/08/2025 2:05 PM EDT Height 167.6 cm (5' 6 ) 01/08/2025 2:05 PM EDT Body Mass Index 32.12 01/08/2025 2:05 PM EDT documented in this encounter Plan of Treatment Upcoming Encounters Date Type Department Care Team (Late st Contact Info) Description 04/12/2025 2:00 PM EDT Office Visit [facility] MEDICINE [address] [place] [address] Maritza Mariano ANP [address] [place] [address] 05/03/2025 1:00 PM EDT Office Visit [facility] OPTOMETRY [address] [place] [address] Tiffani David, OD [address] [place], [place] [id number] documented as of this encounter Visit Diagnoses Diagnosis Hyperkalemia- Primary Hyperpotassemia Mixed hyperlipidemia Primary hypertension Unspecified essential hypertension Chronic low back pain, unspecified back pain laterality, unspecified whether sciatica present Chronic neck pain Cervicalgia Erectile dysfunction, unspecified erectile dysfunction type Hypertriglyceridemia Pure hyperglyceridemia documented in this encounter Additional Health Concerns Assessment Noted Time PHQ-9 Depression Total Score: 13 11/26/ 025 1:49 PM EDT documented as of this encounter Care Teams Planning Consultant Relationship Specialty Start Date End Date Maritza Mariano ANP [address] [place] [phone] PCP - General Family Medicine 09/06/22 documented as of this encounter
--- OUTSIDE RECORDS SUMMARY | 2025-01-08 16:24 | XMS_ITS | Encounter Summary ---
Author Organization [employer] Address [address] [facility] 7t [place] [address] Care Team Providers Care Securities Sales Associate Name Role Phone Mairtza Mariano Primary Care Provider [phone] Reason for Visit * Reason Comments Med Refill Encounter Details Date Type Department Care Team (Late st Contact Info) Description 05/25/2024 Refill [facility] [address] [place] [address] Maritza Mariano ANP [address] [place] [address] Erectile dysfunction, unspecified erectile dysfunction type Social [...] Description 04/12/2025 2:00 PM EDT Office Visit [facility] [address] [place] [address] Maritza Mariano ANP [address] [place] [address] 05/03/2025 1:00 PM EDT Office Visit [facility] OPTOMETRY [address] [place] [address] Tarka, Tiffani, OD [address] [place] [address] documented as of this encounter Visit Diagnoses Diagnosis Erectile dysfunction, unspecified erectile dysfunction type documented in this encounter Additional Health Concerns Assessment Noted Time PHQ-9 Depression Total Score: 12 024 3:12 PM EDT documented as of this encounter Care Teams Securities Sales Associate Relationship Specialty Start Date End Date Maritza Mariano ANP [address] [place] [id number] PCP - General Family Medicine 09/06/22 documented as of this encounter
--- OUTSIDE RECORDS SUMMARY | 2025-01-08 16:24 | XMS_ITS | Clinical Summary ---
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 HIV-1/2 Antigen and Antibodies, Fourth Generation, with Reflexes (10/29/2022 12:14 PM EST) HIV Antigen/Antibody, 4th Generation NON-REAC TIVE NON-REAC TIVE [employer] [place] [facility] Comment: HIV-1 antigen and HIV-1/HIV-2 antibodies [...] ?? For additional information please refer to http://education.Tequila Mobile/faq/ZNK590 (This link is being provided for informational/ educational purposes only.) The performance of this assay has not been clinically validated in patients less than 2 years old. Blood Venous blood specimen / Unknown 10/29/2022 12:14 PM EST 10/29/2022 12:15 PM EST Narrative [facility] - 11/06/2022 7:52 PM EDT FASTING:NO FASTING: NO [facility] LAB BLOOD ORDERABLES Final Resul t [facility] [address], [place] [address] [employer] [place] [facility] [address] [place] [address] from Last 3 Months or Most Recently Relevant to Health Maintenance Insurance HSN PARTIAL [facility] STANDARD DENTAL-[facility] MEDICAID STAND ADULT Care Teams Silica Mixer Operator Relationship Specialty Start Date End Date Nick Sher ANP [address] [place] [address] PCP - General Family Medicine 09/06/22
--- OUTSIDE RECORDS SUMMARY | 2025-01-08 16:24 | XMS_ITS | Encounter Summary ---
Author Organization [employer] Address 75 [facility] 7t [place] [address] Care Team Providers Care Silviculture Teacher Name Role Phone Montserrat Maritza JARA Primary Care Provider [phone] Encounter Details Date Type Department Care Team (Late st Contact Info) Description 12/09/2023 Orders Only [facility] CHC MED & PEDS [address] [place] [address] Billy Lux MD [address] [place] [address] Moderate persistent asthma without complication Social History [...] Description 04/12/2025 2:00 PM EDT Office Visit [facility] MEDICINE [address] [place] [address] Maritza Mariano ANP 230 [place] [address] 05/03/2025 1:00 PM EDT Office Visit [facility] OPTOMETRY [address] [place] [address] Tiffani David, OD [address] [place] [address] documented as of this encounter Visit Diagnoses Diagnosis Moderate persistent asthma without complication documented in this encounter Care Teams Silviculture Teacher Relationship Specialty Start Date End Date Maritza Mariano ANP [address] [place] [address] PCP - General Family Medicine 09/06/22 documented as of this encounter
--- OUTSIDE RECORDS SUMMARY | 2025-01-08 16:24 | XMS_ITS | Encounter Summary ---
Author Organization [employer] Address 75 [facility] 7t [place] [address] Care Team Providers Care Veneer Taper Name Role Phone Maritza Mariano ESTEFANI Primary Care Provider [phone] Encounter Details Date Type Department Care Team (Latest Contact Info) Description 01/08/2025 Travel Social History Tobacco Use Types Packs/Day [...] Description 04/12/2025 2:00 PM EDT Office Visit [facility] MEDICINE [address] [place] [address] Maritza Mariano ANP 230 [place] [address] 05/03/2025 1:00 PM EDT Office Visit [facility] OPTOMETRY [address] [place] [address] Tarka, Tiffani, OD [address] [place] [address] documented as of this encounter Visit Diagnoses Not on filedocumented in this encounter Additional Health Concerns Assessment Noted Time PHQ-9 Depression Total Score: 13 025 1:49 PM EDT documented as of this encounter Care Teams Veneer Taper Relationship Specialty Start Date End Date Maritza Mariano ANP [address] [place] [address] PCP - General Family Medicine 09/06/22 documented as of this encounter
--- OUTSIDE RECORDS SUMMARY | 2025-01-08 16:24 | XMS_ITS | Encounter Summary ---
Author Organization [employer] Address 75 [facility] 7t [place] [address] Care Team Providers Care Loss Prevention Analyst Name Role Phone Maritza Mariano Primary Care Provider [phone] Reason for Visit * Reason Onset Date Comments Prior Auth Prescription 01/08/2025 Encounter Details Date Type Department Care Team ([facility] st Contact Info) Description 01/08/2025 Telephone [facility] MEDICINE [address] [place] [address] Maritza Mariano ANP [address] [place] [address] Prior Auth Prescription Social History Tobacco Use Types Packs/Day Years [...] encounter Miscellaneous Notes * Telephone Encounter - Princess Mo LPN - 01/08/2025 4:17 PM EDT Please review message below regarding Pa Nurse spoke with pharmacy regarding alternative stated LOVAZA 1G will be covered please advise. Patient walked in was advised by Pharmacy that a PA is needed for medication Icosapent Ethyl 1g. * Telephone Encounter - Hina Camara - 01/08/2025 4:06 PM EDT Patient walked in was advised by Pharmacy that a PA is needed for medication Icosapent Ethyl 1g. documented in this encounter Plan of Treatment Upcoming Encounters Date Type Department Care Team (Late st Contact Info) Description 04/12/2025 2:00 PM EDT Office Visit [facility] MEDICINE [address] [place] [address] Maritza Mariano ANP [address] [place] [address] 05/03/2025 1:00 PM EDT Office Visit [facility] OPTOMETRY [address] [place] [address] Tiffani David OD [address] [place] [address] documented as of this encounter Visit Diagnoses Not on filedocumented in this encounter Additional Health Concerns Assessment Noted Time PHQ-9 Depression Total Score: 13 025 1:49 PM EDT documented as of this encounter Care Teams Loss Prevention Analyst Relationship Specialty Start Date End Date Maritza Mariano ANP [address] [place] [address] PCP - General Family Medicine 09/06/22 documented as of this encounter
--- OUTSIDE RECORDS SUMMARY | 2025-01-08 16:24 | XMS_ITS | Encounter Summary ---
Author Organization [facility] [facility] [employer] Address [address] [place] [address] 7t [place] [address] Care Team Providers Care Industrial Sweeper Cleaner Name Role Phone Montserrat Maritza JARA Primary Care Provider [phone] Reason for Visit * Reason Onset Date Comments case back from lab 02/07/2023 Encounter Details Date Type Department Care Team (Late st Contact Info) Description 02/07/2023 Telephone [facility] ADULT DENTAL [address] [place] [address] Arian Sandhu, DDS [address] [place] [address] case back from lab Social History Tobacco [...] Miscellaneous Notes * Telephone Encounter - Meghna Juniors - 02/07/2023 10:59 AM EDT Patient is calling to confirm if case is back from lab DR documented in this encounter Plan of Treatment Upcoming Encounters Date Type Department Care Team (Late st Contact Info) Description 04/12/2025 2:00 PM EDT Office Visit [facility] MEDICINE [address] [place] [address] Maritza Mariano ANP [address] [place] [address] 05/03/2025 1:00 PM EDT Office Visit [facility] OPTOMETRY [address] [place] [address] Tiffani David, OD [address] [place] [address] documented as of this encounter Visit Diagnoses Not on filedocumented in this encounter Care Teams Industrial Sweeper Cleaner Relationship Specialty Start Date End Date Maritza Mariano ANP [address] [place] [address] PCP - General Family Medicine 09/06/22 documented as of this encounter
--- OUTSIDE RECORDS SUMMARY | 2025-01-08 16:24 | XMS_ITS | Encounter Summary ---
Author Organization [employer] Address 75 [facility] 7t [place] [address] Care Team Providers Care Deputy Sheriff Court Services Name Role Phone Maritza Mariano Primary Care Provider [phone] Reason for Visit * Reason Comments Med Refill Encounter Details Date Type Department Care Team (Late st Contact Info) Description 12/26/2024 Refill [facility] MEDICINE [address] [place] [address] Maritza Mariano ANP [address] [place] [address] Erectile dysfunction, unspecified erectile dysfunction type; Acute midline low back pain without sciatica Social History Tobacco Use Types Packs/Day Years [...] 10:14 AM EDT Sexual Orientation Straight 12/14/2022 3 :08 PM EDT documented as of this encounter Plan of Treatment Upcoming Encounters Date Type Department Care Team (Late st Contact Info) Description 04/12/2025 2:00 PM EDT Office Visit [facility] MEDICINE [address] [place] [address] Maritza Mariano ANP [address] [place] [address] 05/03/2025 1:00 PM EDT Office Visit [facility] OPTOMETRY [address] [place] [address] Tiffani David, OD [address] [place] [address] documented as of this encounter Visit Diagnoses Diagnosis Erectile dysfunction, unspecified erectile dysfunction type Acute midline low back pain without sciatica documented in this encounter Additional Health Concerns Assessment Noted Time PHQ-9 Depression Total Score: 13 025 1:49 PM EDT documented as of this encounter Care Teams Deputy Sheriff Court Services Relationship Specialty Start Date End Date Maritza Mariano ANP [address] [place] [address] PCP - General Family Medicine 09/06/22 documented as of this encounter
--- OUTSIDE RECORDS SUMMARY | 2025-01-08 16:24 | XMS_ITS | Encounter Summary ---
Author Organization [email or web address] Address [address] [place] [address] 7t [place] [address] Care Team Providers Care Cashier Clerk Name Role Phone Maritza Mariano Primary Care Provider [phone] Encounter Details Date Type Department Care Team (Late st Contact Info) Description 09/04/2022 Orders Only [facility] MEDICINE [address] [place] [address] Modesta Moore LPN Social History Tobacco Use [...] 04/12/2025 2:00 PM EDT Office Visit [facility] MEDICINE [address] [place] [address] Maritza Mariano ANP [address] [place] [address] 05/03/2025 1:00 PM EDT Office Visit [facility] OPTOMETRY [address] [place], [place] [address] Tiffani David, [place] [address] [place] [address] documented as of this encounter Visit Diagnoses Not on filedocumented in this encounter Care Teams Cashier Clerk Relationship Specialty Start Date End Date Maritza Mariano ANP [address] [place] [address] PCP - General Family Medicine 09/06/22 documented as of this encounter
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
--- OUTSIDE RECORDS SUMMARY | 2025-01-08 16:24 | XMS_ITS | Encounter Summary ---
Author Organization [employer] Address 75 [facility] 7t [place] [address] Care Team Providers Care Endbander Name Role Phone Maritza Mariano Primary Care Provider [phone] Reason for Visit * Reason Comments Med Refill Encounter Details Date Type Department Care Team (Late st Contact Info) Description 09/09/2024 Refill [facility] MEDICINE [address] [place] [address] Maritza Mariano ANP [address] [place] [address] Erectile dysfunction, unspecified erectile dysfunction type Social [...] 2:00 PM EDT Office Visit [facility] MEDICINE [address] [place] [address] Maritza Mariano ANP [address] [place] [address] 05/03/2025 1:00 PM EDT Office Visit [facility] OPTOMETRY [address] [place] [address] Tiffani David, OD [address] [place] [address] documented as of this encounter Visit Diagnoses Diagnosis Erectile dysfunction, unspecified erectile dysfunction type documented in this encounter Additional Health Concerns Assessment Noted Time PHQ-9 Depression Total Score: 12 024 3:12 PM EDT documented as of this encounter Care Teams Endbander Relationship Specialty Start Date End Date Maritza Mariano ANP [address] [place] [address] PCP - General Family Medicine 09/06/22 documented as of this encounter
--- OUTSIDE RECORDS SUMMARY | 2025-01-08 16:24 | XMS_ITS | Encounter Summary ---
Author Organization [employer] Address [address] [facility] 7t [place] [address] Care Team Providers Care Delicatessen Department Manager Name Role Phone Maritza Mariano Primary Care Provider [phone] Encounter Details Date Type Department Care Team (Latest Contact Info) Description 01/07/2025 Results Follow-Up [facility] MEDICINE [address] [place] [address] Martiza Mariano ANP [address] [place] [address] Lipid Panel, Standard, Comprehensive Metabolic Panel Social History Tobacco Use Types Packs/Day Years [...] as of this encounter Miscellaneous Notes * Result Encounter Note - ESTEFANI Griffith - 01/07/2025 5:35 PM EDT Will review w/ pt tomorrow at visit, spoke w/ him re potassium and renal function, see chart notes documented in this encounter Plan of Treatment Upcoming Encounters Date Type Department Care Team (Late st Contact Info) Description 04/12/2025 2:00 PM EDT Office Visit [facility] MEDICINE [address] [place] [address] Maritza Mariano ANP [address] [place] [address] 05/03/2025 1:00 PM EDT Office Visit [facility] OPTOMETRY [address] [place], [place] [address] Tiffani David, OD [address] [place] [address] documented as of this encounter Visit Diagnoses Not on filedocumented in this encounter Additional Health Concerns Assessment Noted Time PHQ-9 Depression Total Score: 13 025 1:49 PM EDT documented as of this encounter Care Teams Delicatessen Department Manager Relationship Specialty Start Date End Date Maritza Mariano ANP [address] [place] [address] PCP - General Family Medicine 09/06/22 documented as of this encounter
--- OUTSIDE RECORDS SUMMARY | 2025-01-08 16:24 | XMS_ITS | Encounter Summary ---
Author Organization [employer] Address 75 [facility] 7t [place] [address] Care Team Providers Care Reservoir Caretaker Name Role Phone Maritza Mariano Primary Care Provider [phone] Reason for Visit * Reason Comments Med Refill Encounter Details Date Type Department Care Team (Late st Contact Info) Description 05/25/2024 Refill [facility] MEDICINE [address] [place] [address] Maritza Mariano ANP [address] [place] [address] Erectile dysfunction, unspecified erectile dysfunction type Social [...] Description 04/12/2025 2:00 PM EDT Office Visit [facility] MEDICINE [address] [place] [address] Maritza Mariano ANP [address] [place] [address] 05/03/2025 1:00 PM EDT Office Visit [facility] OPTOMETRY [address] [place] [address] Tarka, Tiffani, OD [address] [place] [address] documented as of this encounter Visit Diagnoses Diagnosis Erectile dysfunction, unspecified erectile dysfunction type documented in this encounter Additional Health Concerns Assessment Noted Time PHQ-9 Depression Total Score: 12 024 3:12 PM EDT documented as of this encounter Care Teams Reservoir Caretaker Relationship Specialty Start Date End Date Maritza Mariano ANP [address] [place] [address] PCP - General Family Medicine 09/06/22 documented as of this encounter
--- OUTSIDE RECORDS SUMMARY | 2025-01-08 16:24 | XMS_ITS | Encounter Summary ---
Author Organization [employer] Address [address] [place] [address] 7t [place] [address] Care Team Providers Care Clinical Study Manager Name Role Phone Maritza Mariano Primary Care Provider [phone] Reason for Visit * Reason Onset Date Comments Medication Question 05/01/2023 sildenafil ( Viagra) 50 MG tablet Encounter Details Date Type Department Care Team (Late st Contact Info) Description 05/01/2023 Telephone [facility] [address] [place] [address] Maritza Mariano ANP [address] [place] [address] Medication Question (sildenafil (Viagra) 50 MG tablet//) [...] 04/12/2025 2:00 PM EDT Office Visit [facility] [address] [place] [address] Maritza Mariano ANP [address] [place] [address] 05/03/2025 1:00 PM EDT Office Visit [facility] [address] [place] [address] Tarka, Tiffani, OD [address] [place] [address] documented as of this encounter Visit Diagnoses Not on filedocumented in this encounter Care Teams Clinical Study Manager Relationship Specialty Start Date End Date Maritza Mariano ANP [address] [place] [address] PCP - General Family Medicine 09/06/22 documented as of this encounter
--- OUTSIDE RECORDS SUMMARY | 2025-01-08 16:24 | XMS_ITS | Encounter Summary ---
Author Organization [employer] Address [address] [place] [address] 7t [place] [address] Care Team Providers Care Corrosion Control Specialist Name Role Phone Maritza Mariano Primary Care Provider [phone] Reason for Visit * Reason Onset Date Comments Med Refill 11/08/2022 Encounter Details Date Type Department Care Team (Late st Contact Info) Description 11/08/2022 Telephone [facility] [address] [place] [address] Maritza Mairano ANP [address] [place] [address] Med Refill Social History Tobacco Use Types [...] 10:53 AM EDT Medication was sent to [id number] on 09/06/22 Qty: 90 with 1 refill. * Telephone Encounter - Bijal Ortiz - 11/08/2022 10:23 AM EDT Tc from pt requesting med refill for medication omeprazole OTC (PriLOSEC OTC) 20 MG EC tablet. documented in this encounter Plan of Treatment Upcoming Encounters Date Type Department Care Team (Late st Contact Info) Description 04/12/2025 2:00 PM EDT Office Visit [facility] [address] [place] [address] Maritza Mariano ANP [address] [place] [address] 05/03/2025 1:00 PM EDT Office Visit [facility] [address] [place] [address] TarTiffani chow, OD [address] [place] [address] documented as of this encounter Visit Diagnoses Not on filedocumented in this encounter Care Teams Corrosion Control Specialist Relationship Specialty Start Date End Date Martiza Mariano ANP [address] [place] [address] PCP - General Family Medicine 09/06/22 documented as of this encounter
--- OUTSIDE RECORDS SUMMARY | 2025-01-08 16:24 | XMS_ITS | Encounter Summary ---
Author Organization [employer] Address [address] [facility] 7t [place] [address] Care Team Providers Care Hr Shared Services Consultant Name Role Phone Maritza Mariano Primary Care Provider [phone] Encounter Details Date Type Department Care Team ([facility] st Contact Info) Description 01/07/2025 Orders Only [facility] [address] [place] [address] Maritza Mariano ANP [address] [place] [address] Hyperkalemia (Primary Dx) Social History Tobacco Use Types Packs/Day Years [...] encounter Progress Notes * ESTEFANI Griffith - 01/07/2025 5:07 PM EDT Future Appointments Date Time Provider Department Center 01/08/2025 2:30 PM ESTEFANI Griffith MEDICINE [facility] 05/03/2025 1:00 PM Tiffani David OD [facility] Spoke with patient regarding creatinine, possible BRYANNA 1.37, EGFR 56 -up from her last baseline of 0.86 but that was over 2 years ago. Potassium 5.4. I spoke with lab and the sample was not hemolyzed.Spoke with patient and he feels at his baseline he has chronic muscle cramps but this is not new. He does not drink any water. He has been taking naproxen as prescribed. I asked him to please stop all NSAIDs and to hydrate well and we will recheck BMP in 2 to 4 days. At this time I am not making any changes to blood pressure medication but will consider need to stop or decrease ARB. He has visit with me tomorrow and we will review other labs in detail at that time. Of note, there was an EHR update on Saturday of this week and since then I have noticed multiple medication documentation errors. On this patient's medication list it says naproxen 500 mg 2 tabs twicedaily -this is not how the original prescription was written as can be seen in the dispense report which was 500 mg twice daily which is the correct sig. Have notified EHR specialist of error. documented in this encounter Plan of Treatment Upcoming Encounters Date Type Department Care Team (Late st Contact Info) Description 04/12/2025 2:00 PM EDT Office Visit [facility] [address] [place], [place] [id number] Maritza Mariano ANP [address] [place] [address] 05/03/2025 1:00 PM EDT Office Visit [facility] [address] [place], [place] [phone] Tarka, Tiffani, OD [address] [place] [address] Scheduled Orders Name Type Priority Associated Diagnoses Orde r Schedule Basic Metabolic Panel Lab Routine Hyperkalemia Expected: 01/07/2025 (Approximate), Expires: 01/07/2026 Albumin, Random Urine W/Creatinine Lab Routine Hyperkalemia Expected: 01/07/2025 (Approximate), Expires: 01/07/2026 documented as of this encounter Visit Diagnoses Diagnosis Hyperkalemia- Primary Hyperpotassemia documented in this encounter Additional Health Concerns Assessment Noted Time PHQ-9 Depression Total Score: 13 04/ 025 1:49 PM EDT documented as of this encounter Care Teams Hr Shared Services Consultant Relationship Specialty Start Date End Date Maritza Mariano ANP [address] [place] [address] PCP - General Family Medicine 09/06/22 documented as of this encounter
--- OUTSIDE RECORDS SUMMARY | 2025-01-08 16:24 | XMS_ITS | Encounter Summary ---
Author Organization [employer] Address [address] [facility] 7t [place] [address] Care Team Providers Care Trawl Net Maker Name Role Phone Maritza Mariano Primary Care Provider [phone] Reason for Visit * Reason Comments Med Refill Encounter Details Date Type Department Care Team (Late st Contact Info) Description 07/28/2024 Refill [facility] [address] [place] [address] Maritza Mariano ANP [address] [place] [address] Erectile dysfunction, unspecified erectile dysfunction type Social [...] Description 04/12/2025 2:00 PM EDT Office Visit [facility] [address] [place] [address] Maritza Mariano ANP [address] [place] [address] 05/03/2025 1:00 PM EDT Office Visit [facility] [address] [place] [address] Tiffani David, OD [address] [place] [address] documented as of this encounter Visit Diagnoses Diagnosis Erectile dysfunction, unspecified erectile dysfunction type documented in this encounter Additional Health Concerns Assessment Noted Time PHQ-9 Depression Total Score: 12 024 3:12 PM EDT documented as of this encounter Care Teams Trawl Net Maker Relationship Specialty Start Date End Date Maritza Mariano ANP [address] [place] [address] PCP - General Family Medicine 09/06/22 documented as of this encounter
--- OUTSIDE RECORDS SUMMARY | 2025-01-08 16:24 | XMS_ITS | Encounter Summary ---
Author Organization [employer] Address [address] [facility] 7t [place] [address] Care Team Providers Care Security Orderly Name Role Phone Maritza Mariano Primary Care Provider [phone] Reason for Visit * Reason Onset Date Comments Appointment Request 11/23/2024 Encounter Details Date Type Department Care Team ([facility] st Contact Info) Description 11/23/2024 Telephone [facility] [address] [place] [address] Maritza Mariano ANP [address] [place] [address] Appointment Request Social History Tobacco Use Types [...] worrying 1 11/26/2024 1:49 PM EDT Verito Martnio M A Worrying too much about diff erent things 3 11/26/2024 1:49 PM EDT Verito Martino M A Trouble relaxing 3 11/26/2024 1:49 PM EDT Veriot Munoz MA Being so restless that it [...] sick on site appointment. Please return call [phone] documented in this encounter Plan of Treatment Upcoming Encounters Date Type Department Care Team (Late st Contact Info) Description 04/12/2025 2:00 PM EDT Office Visit [facility] [address] [place] [address] Maritza Mariano ANP [address] [place] [address] 05/03/2025 1:00 PM EDT Office Visit [facility] [address] [place] [address] Tiffani David, OD [address] [place] [address] documented as of this encounter Visit Diagnoses Not on filedocumented in this encounter Additional Health Concerns Assessment Noted Time PHQ-9 Depression Total Score: 12 024 3:12 PM EDT documented as of this encounter Care Teams Security Orderly Relationship Specialty Start Date End Date Maritza Mariano ANP [address] [place] [address] PCP - General Family Medicine 09/06/22 documented as of this encounter
[2025-01-08 17:05] LABS: Creatinine Urine 20.57 mg/dL; Microalbumin Urine < 5.0 mg/L
== END 2025-01-08 16:22 | disposition home or self-care (01) ==
LOC: HO.HHCLNP 16:21
PROVIDERS: Visit Provider Nurse Practitioner Primary Care
DX: E87.5 Hyperkalemia (principal)
CPT/HCPCS: 82043; 82570

== ENCOUNTER 2025-01-11 12:53 | Outpatient (REF) | payer MEDICAID, SELFPAY ==
--- OUTSIDE RECORDS SUMMARY | 2025-01-11 13:04 | XMS_ITS | Encounter Summary ---
Author Organization [employer] Address [address] [place] [address] 7t [place] [address] Care Team Providers Care Outside Medical Sales Representative Name Role Phone Maritza Mariano Primary Care Provider [phone] Encounter Details Date Type Department Care Team ([facility] st Contact Info) Description 01/11/2025 Results [facility]INE [address] [place] [address] Maritza Mariano, ANP [address] [place] [address] Albumin, Random Urine W/Creatinine Social History Tobacco Use Types Packs/Day Years [...] Description 04/12/2025 2:00 PM EDT Office Visit [facility] [address] [place] [address] Maritza Mariano ANP [address] [place] [address] 05/03/2025 1:00 PM EDT Office Visit [facility] [address] [place] [address] TarkaTiffani, OD [address] [place] [address] documented as of this encounter Visit Diagnoses Not on filedocumented in this encounter Additional Health Concerns Assessment Noted Time PHQ-9 Depression Total Score: 13 025 1:49 PM EDT documented as of this encounter Care Teams Outside Medical Sales Representative Relationship Specialty Start Date End Date Maritza Mariano ANP [address] [place] [address] PCP - General Family Medicine 09/06/22 documented as of this encounter
--- OUTSIDE RECORDS SUMMARY | 2025-01-11 13:04 | XMS_ITS | Encounter Summary ---
Author Organization [employer] Address [address] [place] [address] [address] [place] [address] Care Team Providers Care Vessel Builder Name Role Phone Maritza Mariano Primary Care Provider [phone] Reason for Visit * Reason Comments Annual Exam Encounter Details Date Type Department Care Team (Late st Contact Info) Description 01/08/2025 2:30 PM EDT Office Visit [facility] [address] [place] [address] Maritza Mariano ANP [address] [place] [address] Hyperkalemia (Primary Dx); Mixed hyperlipidemia; Primary hypertension; [...] the past 12 months, has t he [employer], oil or water company threatened to [...] Description 04/12/2025 2:00 PM EDT Office Visit [facility] [address] [place] [address] Maritza Mariano ANP [address] [place] [address] 05/03/2025 1:00 PM EDT Office Visit [facility] [address] [place] [address] Tiffani David, OD [address] [place], [place] [phone] documented as of this encounter Visit Diagnoses [...] documented as of this encounter Care Teams Vessel Builder Relationship Specialty Start Date End Date Maritza Mariano ANP [address] [place] [address] PCP - General Family Medicine 09/06/22 documented as of this encounter
--- OUTSIDE RECORDS SUMMARY | 2025-01-11 13:04 | XMS_ITS | Encounter Summary ---
Author Organization [employer] Address [address] [place] [address] 7t [place] [address] Care Team Providers Care Cage Manager Name Role Phone Maritza Mariano Primary Care Provider Reason for Visit * Reason Comments Med Refill Encounter Details Date Type Department Care Team (Late st Contact Info) Description 09/09/2024 Refill [facility] [address] [place] [address] Maritza Mariano ANP [address] [place] [address] Erectile dysfunction, unspecified erectile dysfunction type Social [...] Description 04/12/2025 2:00 PM EDT Office Visit [facility] [address] [place] [address] Maritza Mariano ANP [address] [place] [address] 05/03/2025 1:00 PM EDT Office Visit [facility] [address] [place] [address] Tiffani David, OD [address] [place] [address] documented as of this encounter Visit Diagnoses Diagnosis Erectile dysfunction, unspecified erectile dysfunction type documented in this encounter Additional Health Concerns Assessment Noted Time PHQ-9 Depression Total Score: 12 024 3:12 PM EDT documented as of this encounter Care Teams Cage Manager Relationship Specialty Start Date End Date Maritza Mariano ANP [address] [place] [address] PCP - General Family Medicine 09/06/22 documented as of this encounter
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
--- OUTSIDE RECORDS SUMMARY | 2025-01-11 13:04 | XMS_ITS | Encounter Summary ---
Author Organization [facility] Address [address] [place] [address] 7t [place] [address] Care Team Providers Care Fish Hatchery Supervisor Name Role Phone Maritza Mariano Primary Care Provider [phone] Encounter Details Date Type Department Care Team (Late st Contact Info) Description 09/04/2022 Orders Only [facility] [address] [place] [address] Modesta Moore LPN Social History Tobacco Use [...] Description 04/12/2025 2:00 PM EDT Office Visit [facility] 230 [place], [place] [phone] Maritza Mariano ANP 230 [place], [place] [phone] 05/03/2025 1:00 PM EDT Office Visit [facility] 267 [place], [place] [phone] Tiffani David, [place] 267 [place] [address] documented as of this encounter Visit Diagnoses Not on filedocumented in this encounter Care Teams Fish Hatchery Supervisor Relationship Specialty Start Date End Date Maritza Mariano ANP [address] [place] [address] PCP - General Family Medicine 09/06/22 documented as of this encounter
--- OUTSIDE RECORDS SUMMARY | 2025-01-11 13:04 | XMS_ITS | Encounter Summary ---
Author Organization [employer] Address [address] [place] [address] 7t [place] [address] Care Team Providers Care Range Mechanic Name Role Phone Montserrat Maritza JARA Primary Care Provider [phone] Reason for Visit * Reason Onset Date Comments case back from lab 02/07/2023 Encounter Details Date Type Department Care Team (Late st Contact Info) Description 02/07/2023 Telephone [facility] [address] [place] [address] Arian Sandhu, DDS [address] [place] [address] case back from lab Social History Tobacco [...] 2:00 PM EDT Office Visit [facility] 230 [place] [address] Maritza Mariano ANP 230 [place] [address] 05/03/2025 1:00 PM EDT Office Visit [facility] 267 [place] [address] Tiffani David, OD 267 [place] [address] documented as of this encounter Visit Diagnoses Not on filedocumented in this encounter Care Teams Range Mechanic Relationship Specialty Start Date End Date Maritza Mariano ANP 230 [place] [address] PCP - General Family Medicine 09/06/22 documented as of this encounter
--- OUTSIDE RECORDS SUMMARY | 2025-01-11 13:04 | XMS_ITS | Encounter Summary ---
Author Organization [employer] Address [address] [place] [address] 7t [place] [address] Care Team Providers Care Producer Director Name Role Phone Maritza Mariano Primary Care Provider [phone] Reason for Visit * Reason Comments Med Refill Encounter Details Date Type Department Care Team (Late st Contact Info) Description 07/28/2024 Refill [facility] 230 [place] [address] Maritza Mariano ANP 230 [place] [address] Erectile dysfunction, unspecified erectile dysfunction type Social [...] Description 04/12/2025 2:00 PM EDT Office Visit [facility] 230 [place] [address] Maritza Maraino ANP 230 [place] [address] 05/03/2025 1:00 PM EDT Office Visit [facility] 267 [place] [address] Tiffani David, OD 267 [place] [address] documented as of this encounter Visit Diagnoses Diagnosis Erectile dysfunction, unspecified erectile dysfunction type documented in this encounter Additional Health Concerns Assessment Noted Time PHQ-9 Depression Total Score: 12 024 3:12 PM EDT documented as of this encounter Care Teams Producer Director Relationship Specialty Start Date End Date Maritza Mariano ANP 230 [place] [address] PCP - General Family Medicine 09/06/22 documented as of this encounter
--- OUTSIDE RECORDS SUMMARY | 2025-01-11 13:04 | XMS_ITS | Encounter Summary ---
Author Organization [employer] Address [address] [place] [address] 7t [place] [address] Care Team Providers Care Political Aide Name Role Phone Maritza Mariano Primary Care Provider [phone] Reason for Visit * Reason Comments Med Refill Encounter Details Date Type Department Care Team (Late st Contact Info) Description 12/04/2023 Refill [facility] 230 [place] [address] Maritza Mariano ANP 230 [place] [address] Erectile dysfunction, unspecified erectile dysfunction type Social [...] Description 04/12/2025 2:00 PM EDT Office Visit [facility] 230 [place] [address] Maritza Mariano ANP 230 [place] [address] 05/03/2025 1:00 PM EDT Office Visit [facility] OPTOM[facility] 267 [place] [address] Tiffani David, OD 267 [place] [address] documented as of this encounter Visit Diagnoses Diagnosis Erectile dysfunction, unspecified erectile dysfunction type documented in this encounter Care Teams Political Aide Relationship Specialty Start Date End Date Maritza Mariano ANP [address] [place] [address] PCP - General Family Medicine 09/06/22 documented as of this encounter
--- OUTSIDE RECORDS SUMMARY | 2025-01-11 13:04 | XMS_ITS | Encounter Summary ---
Author Organization [employer] Address [address] [place] [address] 7 [place] [address] Care Team Providers Care Rugby Union Footballer Name Role Phone Maritza Mariano Primary Care Provider [phone] Reason for Visit * Reason Onset Date Comments Med Refill 11/08/2022 Encounter Details Date Type Department Care Team (Late st Contact Info) Description 11/08/2022 Telephone [facility] 230 [place] [address] Maritza Mariano ANP 230 [place] [address] Med Refill Social History Tobacco Use Types [...] 10:53 AM EDT Medication was sent to [id number] on 09/06/22 Qty: 90 with 1 refill. * Telephone Encounter - Bijal Ortiz - 11/08/2022 10:23 AM EDT Tc from pt requesting med refill for medication omeprazole OTC (PriLOSEC OTC) 20 MG EC tablet. documented in this encounter Plan of Treatment Upcoming Encounters Date Type Department Care Team (Late st Contact Info) Description 04/12/2025 2:00 PM EDT Office Visit [facility] MEDICINE 230 [place] [address] Maritza Mariano ANP 230 [place] [address] 05/03/2025 1:00 PM EDT Office Visit [facility] OPTOMETRY [address] [place] [address] TarTiffani chow, OD 267 [place] [address] documented as of this encounter Visit Diagnoses Not on filedocumented in this encounter Care Teams Rugby Union Footballer Relationship Specialty Start Date End Date Maritza Mariano ANP 230 [place] [address] PCP - General Family Medicine 09/06/22 documented as of this encounter
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
--- OUTSIDE RECORDS SUMMARY | 2025-01-11 13:04 | XMS_ITS | Encounter Summary ---
Author Organization [employer] Address [address] [facility] 7t [place] [address] Care Team Providers Care Aquarium Specialist Name Role Phone Montserrat Maritza JARA Primary Care Provider [phone] Encounter Details Date Type Department Care Team (Late st Contact Info) Description 12/09/2023 Orders Only [facility] 505 [place] [address] Billy Lux MD 505 [place] [address] Moderate persistent asthma without complication Social History [...] EDT Office Visit [facility] 230 [place] [address] Maritza Mariano ANP 230 [place] [address] 05/03/2025 1:00 PM EDT Office Visit [facility] 267 [place] [address] Tiffani David, OD 267 [place] [address] documented as of this encounter Visit Diagnoses Diagnosis Moderate persistent asthma without complication documented in this encounter Care Teams Aquarium Specialist Relationship Specialty Start Date End Date Maritza Mariano ANP [address] [place] [address] PCP - General Family Medicine 09/06/22 documented as of this encounter
--- OUTSIDE RECORDS SUMMARY | 2025-01-11 13:04 | XMS_ITS | Encounter Summary ---
Author Organization [employer] Address [address] [place] [address] 7 [place] [address] Care Team Providers Care Training Lead Name Role Phone Maritza Mariano Primary Care Provider [phone] Reason for Visit * Reason Onset Date Comments Prior Auth Prescription 01/08/2025 Encounter Details Date Type Department Care Team ([facility] st Contact Info) Description 01/08/2025 Telephone [facility] 230 [place] [address] Maritza Mariano ANP 230 [place] [address] Prior Auth Prescription Social History Tobacco Use [...] Description 04/12/2025 2:00 PM EDT Office Visit [facility] 230 [place] [address] Maritza Mariano ANP 230 [place] [address] 05/03/2025 1:00 PM EDT Office Visit [facility] [address] [place] [address] Tiffani David OD [address] [place] [address] documented as of this encounter Visit Diagnoses Not on filedocumented in this encounter Additional Health Concerns Assessment Noted Time PHQ-9 Depression Total Score: 13 025 1:49 PM EDT documented as of this encounter Care Teams Training Lead Relationship Specialty Start Date End Date Maritza Mariano ANP 230 [place] [address] PCP - General Family Medicine 09/06/22 documented as of this encounter
--- OUTSIDE RECORDS SUMMARY | 2025-01-11 13:04 | XMS_ITS | Encounter Summary ---
Author Organization [employer] Address [address] [place] [address] 7 [place] [address] Care Team Providers Care Body Shop Floorperson Name Role Phone Maritza Mariano Primary Care Provider [phone] Reason for Visit * Reason Onset Date Comments Appointment Request 11/23/2024 Encounter Details Date Type Department Care Team ([facility] st Contact Info) Description 11/23/2024 Telephone [facility] 230 [place] [address] Maritza Mariano ANP 230 [place] [address] Appointment Request Social History Tobacco Use Types [...] sick on site appointment. Please return call [phone] documented in this encounter Plan of Treatment Upcoming Encounters Date Type Department Care Team (Late st Contact Info) Description 04/12/2025 2:00 PM EDT Office Visit [facility] 230 [place] [address] Maritza Mariano ANP 230 [place] [address] 05/03/2025 1:00 PM EDT Office Visit [facility] 267 [place] [address] Tiffani David, OD 267 [place] [address] documented as of this encounter Visit Diagnoses Not on filedocumented in this encounter Additional Health Concerns Assessment Noted Time PHQ-9 Depression Total Score: 12 024 3:12 PM EDT documented as of this encounter Care Teams Body Shop Floorperson Relationship Specialty Start Date End Date Maritza Mariano ANP [address] [place] [address] PCP - General Family Medicine 09/06/22 documented as of this encounter
--- OUTSIDE RECORDS SUMMARY | 2025-01-11 13:04 | XMS_ITS | Encounter Summary ---
Author Organization [employer] Address [address] [place] [address] 7t [place] [address] Care Team Providers Care Reporting Manager Name Role Phone Maritza Mariano Primary Care Provider [phone] Reason for Visit * Reason Comments Med Refill Encounter Details Date Type Department Care Team (Late st Contact Info) Description 12/21/2022 Refill [facility] 230 [place] [address] Maritza Mariano ANP 230 [place] [address] Erectile dysfunction, unspecified erectile dysfunction type; Allergic [...] Description 04/12/2025 2:00 PM EDT Office Visit [facility] 230 [place] [address] Maritza Mariano ANP 230 [place] [address] 05/03/2025 1:00 PM EDT Office Visit [facility] OPTOMETRY 267 [place] [address] TarkaTiffani, OD 267 [place] [address] documented as of this encounter Visit Diagnoses Diagnosis Erectile dysfunction, unspecified erectile dysfunction type Allergic rhinitis due to other allergic trigger, unspecified seasonality documented in this encounter Care Teams Reporting Manager Relationship Specialty Start Date End Date Maritza Mariano ANP [address] [place] [address] PCP - General Family Medicine 09/06/22 documented as of this encounter
--- OUTSIDE RECORDS SUMMARY | 2025-01-11 13:04 | XMS_ITS | Encounter Summary ---
Author Organization [employer] Address [address] [place] [address] 7 [place] [address] Care Team Providers Care Tube Bender Hand Name Role Phone Montserrat Maritza JARA Primary Care Provider [phone] Reason for Visit * Reason Onset Date Comments Med Refill 02/20/2024 Encounter Details Date Type Department Care Team (Late st Contact Info) Description 02/20/2024 Refill [facility]INE 230 [place] [address] Katerin Phan MD 230 [place] [address] Chronic neck pain Social History Tobacco Use [...] Office Visit [facility] MEDICINE 230 [place] [address] Maritza Mariano ANP 230 [place] [address] 05/03/2025 1:00 PM EDT Office Visit [facility] OPTOMETRY 267 [place] [address] Tarka, Tiffani, OD 267 [place] [address] documented as of this encounter Visit Diagnoses Diagnosis Chronic neck pain Cervicalgia documented in this encounter Additional Health Concerns Assessment Noted Time PHQ-9 Depression Total Score: 12 024 3:12 PM EDT documented as of this encounter Care Teams Tube Bender Hand Relationship Specialty Start Date End Date Maritza Mariano ANP [address] [place] [address] PCP - General Family Medicine 09/06/22 documented as of this encounter
--- OUTSIDE RECORDS SUMMARY | 2025-01-11 13:04 | XMS_ITS | Encounter Summary ---
Author Organization [facility] Address [address] [place] [address] 7t [place] [address] Care Team Providers Care Mechanical Specialist Name Role Phone Maritza Mariano Primary Care Provider [phone] Reason for Visit * Reason Onset Date Comments Medication Question 05/01/2023 sildenafil ( Viagra) 50 MG tablet Encounter Details Date Type Department Care Team (Late st Contact Info) Description 05/01/2023 Telephone [facility] 230 [place] [address] Maritza Mariano ANP 230 [place] [address] Medication Question (sildenafil (Viagra) 50 MG tablet//) [...] Description 04/12/2025 2:00 PM EDT Office Visit [facility] 230 [place] [address] Maritza Mariano ANP 230 [place] [address] 05/03/2025 1:00 PM EDT Office Visit [facility] OPTOMETRY 267 [place] [address] Tarka, Tiffani, OD 267 [place] [address] documented as of this encounter Visit Diagnoses Not on filedocumented in this encounter Care Teams Mechanical Specialist Relationship Specialty Start Date End Date Maritza Mariano ANP 230 [place] [address] PCP - General Family Medicine 09/06/22 documented as of this encounter
--- OUTSIDE RECORDS SUMMARY | 2025-01-11 13:04 | XMS_ITS | Encounter Summary ---
Author Organization [employer] Address [address] [place] [address] 7 [place] [address] Care Team Providers Care Location Man Name Role Phone Maritza Mariano Primary Care Provider [phone] Reason for Visit * Reason Onset Date Comments CHART PREP 01/08/2025 Encounter Details Date Type Department Care Team ([facility] st Contact Info) Description 01/08/2025 Telephone [facility] MEDICINE 230 [place] [address] Maritza Mariano ANP 230 [place] [address] CHART PREP Social History Tobacco Use Types [...] PM EDT Office Visit [facility] MEDICINE 230 [place] [address] Maritza Mariano ANP 230 [place] [address] 05/03/2025 1:00 PM EDT Office Visit [facility] OPTOMETRY 267 [place] [address] Tiffani David, OD 267 [place] [address] documented as of this encounter Visit Diagnoses Not on filedocumented in this encounter Additional Health Concerns Assessment Noted Time PHQ-9 Depression Total Score: 13 025 1:49 PM EDT documented as of this encounter Care Teams Location Man Relationship Specialty Start Date End Date Maritza Mariano ANP [address] [place] [address] PCP - General Family Medicine 09/06/22 documented as of this encounter
--- OUTSIDE RECORDS SUMMARY | 2025-01-11 13:04 | XMS_ITS | Encounter Summary ---
Author Organization [employer] Address [address] [place] [address] 7t [place] [address] Care Team Providers Care Separator Tender Name Role Phone Maritza Mariano Primary Care Provider [phone] Encounter Details Date Type Department Care Team (Late st Contact Info) Description 01/07/2025 Orders Only [facility] MEDICINE [address] [place], [place] [phone] Maritza Mariano ANP [address] [place] [address] Hyperkalemia (Primary Dx) Social History Tobacco Use [...] Center 01/08/2025 2:30 PM ESTEFANI Griffith MEDICINE [facility] 05/03/2025 1:00 PM Tiffani David OD VISION [facility] Spoke with patient regarding creatinine, possible BRYANNA [...] prescribed. I asked him to please stop al l NSAIDs and to hydrate well and we [...] Description 04/12/2025 2:00 PM EDT Office Visit [facility] MEDICINE [address] [place] [address] Maritza Mariano ANP [address] [place] [address] 05/03/2025 1:00 PM EDT Office Visit [facility] OPTOMETRY [address] [place], [place] [phone] TarkaTiffani, OD [address] [place], [place] [phone] Scheduled Orders Name Type Priority Associated Diagnoses Orde r Schedule Basic Metabolic Panel Lab Routine Hyperkalemia Expected: 01/07/2025 (Approximate), Expires: 01/07/2026 documented as of this encounter Procedures Procedure Name Priority Date/Time Associated Diagnosis Comments ALBUMIN, RANDOM URINE W/CREATININE Routine 01/08/2025 2:52 PM EDT Hyperkalemia documented in this encounter Results * Albumin, Random Urine W/Creatinine (01/08/2025 2:52 PM EDT) Creatinine, Urine 20.57 mg/dL [facility] Microalbumin Urine <5.0 mg/L [facility] Microalbum Creatinine Ratio Ur TNP <30 ug/mg cr [facility] Comment:Unable to calculate albumin/creatinine ratio due to lowmicroalbumin or creatinine result. Urine (Urine, Random) 01/08/2025 2:52 PM EDT 01/08/2025 4:22 PM EDT us Maritza JARA LAB URINE ORDERABLES Final Resul t [facility] [address] [place] [address] [phone] documented in this encounter Visit Diagnoses Diagnosis Hyperkalemia- Primary Hyperpotassemia documented in this encounter Additional Health Concerns Assessment Noted Time PHQ-9 Depression Total Score: 13 11/26/ 025 1:49 PM EDT documented as of this encounter Care Teams Separator Tender Relationship Specialty Start Date End Date Maritza Mariano ANP [address] [place] [address] PCP - General Family Medicine 09/06/22 documented as of this encounter
--- OUTSIDE RECORDS SUMMARY | 2025-01-11 13:04 | XMS_ITS | Encounter Summary ---
Author Organization [employer] Address [address] [place] [address] 7t [place] [address] Care Team Providers Care Steel Fitter Name Role Phone Maritza Mariano Primary Care Provider [phone] Encounter Details Date Type Department Care Team (Latest Contact Info) Description 01/07/2025 Results Follow-Up [facility] MEDICINE [address] [place] [address] Maritza Mariano ANP [address] [place] [address] Lipid Panel, Standard, Comprehensive Metabolic Panel Social [...] Description 04/12/2025 2:00 PM EDT Office Visit [facility] MEDICINE [address] [place] [address] Maritza Mariano ANP [address] [place] [address] 05/03/2025 1:00 PM EDT Office Visit [facility] OPTOMETRY [address] [place], [place] [phone] Tiffani David, OD [address] [place] [address] documented as of this encounter Visit Diagnoses Not on filedocumented in this encounter Additional Health Concerns Assessment Noted Time PHQ-9 Depression Total Score: 13 025 1:49 PM EDT documented as of this encounter Care Teams Steel Fitter Relationship Specialty Start Date End Date Maritza Mariano ANP [address] [place] [address] PCP - General Family Medicine 09/06/22 documented as of this encounter
--- OUTSIDE RECORDS SUMMARY | 2025-01-11 13:04 | XMS_ITS | Encounter Summary ---
Author Organization [employer] Address [address] [place] [address] 7 [place] [address] Care Team Providers Care Primary Teacher Name Role Phone Maritza Mariano Primary Care Provider [phone] Reason for Visit * Reason Onset Date Comments Appointment Request 01/24/2024 Encounter Details Date Type Department Care Team ([facility] st Contact Info) Description 01/24/2024 Telephone [facility] MEDICINE [address] [place] [address] Maritza Mariano ANP [address] [place] [address] Appointment Request Social History Tobacco Use Types [...] 2:00 PM EDT Office Visit [facility] MEDICINE [address] [place] [address] Maritza Mariano ANP [address] [place] [address] 05/03/2025 1:00 PM EDT Office Visit [facility] OPTOMETRY [address] [place] [address] Tiffani David, OD [address] [place] [address] documented as of this encounter Visit Diagnoses Not on filedocumented in this encounter Additional Health Concerns Assessment Noted Time PHQ-9 Depression Total Score: 12 024 3:12 PM EDT documented as of this encounter Care Teams Primary Teacher Relationship Specialty Start Date End Date Maritza Mariano ANP [address] [place] [address] PCP - General Family Medicine 09/06/22 documented as of this encounter
--- OUTSIDE RECORDS SUMMARY | 2025-01-11 13:04 | XMS_ITS | Encounter Summary ---
Author Organization [employer] Address [address] [place] [address] 7t [place] [address] Care Team Providers Care Produce Sorter Name Role Phone Maritza Mariano ESTEFANI Primary Care Provider Encounter Details Date Type Department Care Team [...] Description 04/12/2025 2:00 PM EDT Office Visit [facility] MEDICINE 230 [place] [address] Maritza Mariano ANP 230 [place] [address] 05/03/2025 1:00 PM EDT Office Visit [facility] OPTOMETRY [address] [place] [address] Tarka, Tiffani, OD [address] [place] [address] documented as of this encounter Visit Diagnoses Not on filedocumented in this encounter Additional Health Concerns Assessment Noted Time PHQ-9 Depression Total Score: 13 025 1:49 PM EDT documented as of this encounter Care Teams Produce Sorter Relationship Specialty Start Date End Date Maritza Mariano ANP [address] [place] [address] PCP - General Family Medicine 09/06/22 documented as of this encounter
--- OUTSIDE RECORDS SUMMARY | 2025-01-11 13:05 | XMS_ITS | Encounter Summary ---
Author Organization [employer] Address [address] [place] [address] 7t [place] [address] Care Team Providers Care Senior Applications Architect Name Role Phone Maritza Mariano Primary Care Provider [phone] Reason for Visit * Reason Comments Med Refill Encounter Details Date Type Department Care Team (Late st Contact Info) Description 05/25/2024 Refill [facility] MEDICINE [address] [place] [address] Maritza Mariano ANP [address] [place] [address] Erectile dysfunction, unspecified erectile dysfunction type Social [...] EDT Office Visit [facility] MEDICINE [address] [place] [address] Maritza Mariano ANP [address] [place] [address] 05/03/2025 1:00 PM EDT Office Visit [facility] OPTOMETRY [address] [place] [address] Tarka, Tiffani, OD [address] [place] [address] documented as of this encounter Visit Diagnoses Diagnosis Erectile dysfunction, unspecified erectile dysfunction type documented in this encounter Additional Health Concerns Assessment Noted Time PHQ-9 Depression Total Score: 12 024 3:12 PM EDT documented as of this encounter Care Teams Senior Applications Architect Relationship Specialty Start Date End Date Maritza Mariano ANP [address] [place] [address] PCP - General Family Medicine 09/06/22 documented as of this encounter
--- OUTSIDE RECORDS SUMMARY | 2025-01-11 13:05 | XMS_ITS | Encounter Summary ---
Author Organization [employer] Address [address] [place] [address] 7t [place] [address] Care Team Providers Care Python Django Developer Name Role Phone Maritza Mariano Primary Care Provider [phone] Reason for Visit * Reason Comments Med Refill Encounter Details Date Type Department Care Team (Late st Contact Info) Description 12/26/2024 Refill [facility] MEDICINE [address] [place] [address] Maritza Mariano ANP [address] [place] [address] Erectile dysfunction, unspecified erectile dysfunction type; Acute [...] Description 04/12/2025 2:00 PM EDT Office Visit [facility] MEDICINE [address] [place] [address] Maritza Mariano ANP [address] [place] [address] 05/03/2025 1:00 PM EDT Office Visit [facility] OPTOMETRY [address] [place] [address] Tiffani David, OD [address] [place] [address] documented as of this encounter Visit Diagnoses Diagnosis Erectile dysfunction, unspecified erectile dysfunction type Acute midline low back pain without sciatica documented in this encounter Additional Health Concerns Assessment Noted Time PHQ-9 Depression Total Score: 13 025 1:49 PM EDT documented as of this encounter Care Teams Python Django Developer Relationship Specialty Start Date End Date Maritza Mariano ANP [address] [place] [address] PCP - General Family Medicine 09/06/22 documented as of this encounter
--- OUTSIDE RECORDS SUMMARY | 2025-01-11 13:05 | XMS_ITS | Encounter Summary ---
Author Organization [employer] Address [address] [place] [address] 7t [place] [address] Care Team Providers Care Motor Racer Name Role Phone aMritza Mariano Primary Care Provider [phone] Reason for Visit * Reason Comments Med Refill Encounter Details Date Type Department Care Team (Late st Contact Info) Description 05/25/2024 Refill [facility] MEDICINE [address] [place] [address] Maritza Mariano ANP [address] [place] [address] Erectile dysfunction, unspecified erectile dysfunction type Social [...] 04/12/2025 2:00 PM EDT Office Visit [facility] MEDICINE [address] [place] [address] Maritza Mariano ANP [address] [place] [address] 05/03/2025 1:00 PM EDT Office Visit [facility] OPTOMETRY [address] [place] [address] Tarka, Tiffani, OD [address] [place] [address] documented as of this encounter Visit Diagnoses Diagnosis Erectile dysfunction, unspecified erectile dysfunction type documented in this encounter Additional Health Concerns Assessment Noted Time PHQ-9 Depression Total Score: 12 024 3:12 PM EDT documented as of this encounter Care Teams Motor Racer Relationship Specialty Start Date End Date Maritza Mariano ANP [address] [place] [address] PCP - General Family Medicine 09/06/22 documented as of this encounter
[2025-01-11 17:04] LABS: Anion Gap 15 (12-20); Blood Urea Nitrogen 14 mg/dL (9-16); Calcium 8.9 mg/dL (8.4-10.2); Carbon Dioxide 23 mmol/L (22-29); Chloride 102 mmol/L (96-108); Estimated Glomerular Filt Rate > 60; Glucose Random 100 mg/dL (60-115); Potassium 5.1 mmol/L (3.3-5.1); Sodium 135 mmol/L (135-145)
== END 2025-01-11 12:54 | disposition home or self-care (01) ==
LOC: HO.HHCL 12:53
PROVIDERS: Visit Provider Nurse Practitioner Primary Care
DX: E87.5 Hyperkalemia (principal)
CPT/HCPCS: 36415; 80048

== ENCOUNTER 2025-01-22 16:08 | Outpatient (REF) | payer MEDICAID, SELFPAY ==
--- NOTE | ~2025-01-22 | XR_ITS ---
EXAMINATION: XR ANKLE, RIGHT CLINICAL INFORMATION: right ankle pain, s/p fall twisted ankle COMPARISON: None available. TECHNIQUE: AP, lateral, and mortise views of the right ankle. FINDINGS: No fracture, dislocation, or suspicious bone lesion. Normal bone mineralization. Normal alignment. Mortise is intact. The talar dome is normal. Joint spaces are preserved. No significant arthropathy. No significant ankle joint effusion. Soft tissues appear normal. XR/XR ankle RT min 3V IMPRESSION: Normal right ankle. Electronically signed by: Jeremy Meng MD 01/22/2025 04:20 PM EDT
--- OUTSIDE RECORDS SUMMARY | 2025-01-22 16:11 | XMS_ITS | Encounter Summary ---
Author Organization [employer] Address [address] [place] [address] 7 [place] [address] Care Team Providers Care Set Painter Name Role Phone Montserrat Maritza JARA Primary Care Provider [phone] Reason for Visit * Reason Onset Date Comments Med Refill 02/20/2024 Encounter Details Date Type Department Care Team (Late st Contact Info) Description 02/20/2024 Refill [facility] MEDICINE [address] [place] [address] Katerin Phan MD [address] [place] [address] Chronic neck pain Social History Tobacco Use [...] Description 04/12/2025 2:00 PM EDT Office Visit [facility] MEDICINE [address] [place] [address] Maritza Mariano ANP [address] [place] [address] 05/03/2025 1:00 PM EDT Office Visit [facility] OPTOMETRY [address] [place] [address] Tarka, Tiffani, OD [address] [place] [address] documented as of this encounter Visit Diagnoses Diagnosis Chronic neck pain Cervicalgia documented in this encounter Additional Health Concerns Assessment Noted Time PHQ-9 Depression Total Score: 12 024 3:12 PM EDT documented as of this encounter Care Teams Set Painter Relationship Specialty Start Date End Date Maritza Mariano ANP [address] [place] [address] PCP - General Family Medicine 09/06/22 documented as of this encounter
== END 2025-01-22 16:09 | disposition home or self-care (01) ==
LOC: HO.HHCX 16:08
PROVIDERS: Visit Provider Nurse Practitioner Family
DX: S93.401A Sprain of unspecified ligament of right ankle, initial encounter (principal); M25.571 Pain in right ankle and joints of right foot
CPT/HCPCS: 73610

== ENCOUNTER → 2025-01-22 16:09 | Outpatient (BNV) | payer MEDICAID, SELFPAY | PROVIDERS: Visit Provider Radiology Diagnostic Radiology | DX: M25.571 Pain in right ankle and joints of right foot (principal) | CPT/HCPCS: 73610 ==

== ENCOUNTER 2025-01-25 15:15 | Outpatient (REF) | payer MEDICAID, SELFPAY ==
--- OUTSIDE RECORDS SUMMARY | 2025-01-25 16:29 | XMS_ITS | Encounter Summary ---
Author Organization [employer] Address [address] [place] [address] 7 [place] [address] Care Team Providers Care Freight Flow Sales Leader Name Role Phone Montserrat Maritza JARA Primary Care Provider [phone] Reason for Visit * Reason Onset Date Comments Med Refill 02/20/2024 Encounter Details Date Type Department Care Team (Late st Contact Info) Description 02/20/2024 Refill [facility] MEDICINE 230 [place] [address] Katerin Phan MD [address] [place] [address] Chronic neck pain Social History Tobacco Use [...] Description 04/12/2025 2:00 PM EDT Office Visit [facility] MEDICINE [address] [place] [address] Maritza Mariano ANP [address] [place] [address] 05/03/2025 1:00 PM EDT Office Visit [facility] OPTOMETRY [address] [place] [address] Tarka, Tiffani, OD [address] [place] [address] documented as of this encounter Visit Diagnoses Diagnosis Chronic neck pain Cervicalgia documented in this encounter Additional Health Concerns Assessment Noted Time PHQ-9 Depression Total Score: 12 024 3:12 PM EDT documented as of this encounter Care Teams Freight Flow Sales Leader Relationship Specialty Start Date End Date Maritza Mariano ANP [address] [place] [address] PCP - General Family Medicine 09/06/22 documented as of this encounter
== END 2025-01-25 15:16 | disposition home or self-care (01) ==
LOC: HO.HHCL 15:15
PROVIDERS: Visit Provider Nurse Practitioner Primary Care
DX: Z13.89 Encounter for screening for other disorder (principal)

== ENCOUNTER 2025-08-20 16:00 | Outpatient (REF) | payer MEDICAID, SELFPAY ==
--- NOTE | 2025-08-20 16:04 | PFT_ITS ---
Indication: Asthma Spirometry FEV1 to FVC 70%; FEV1 2.59 L; FVC 3.7 L. no significant response to bronchodilators noted. To note the FEF 25-75 41% predicted Lung Volumes Total lung capacity 86% predicted; residual volume 110% predicted; expiratory reserve volume 31% predicted Diffusion Capacity DLCO 86% predicted Methacholine Challenge [] Flow Volume Loops Concavity of the expiratory limb suggesting obstructive physiology MVV 76% predicted Comparisons None Interpretation There is an obstructive ventilatory defect consistent with moderate COPD or uncontrolled asthma. No significant response to bronchodilators noted. Significant small airways disease noted. Lung volumes are normal except for a trend of air trapping due to the small airways disease. Diffusing capacity is within normal limits. Clinical correlation warranted. MTDD
--- OUTSIDE RECORDS SUMMARY | 2025-08-20 16:04 | XMS_ITS | Encounter Summary ---
Author Organization [employer] Address [address] [place] [address] Care Team Providers Care Titrator Name Role Phone Maritza Mariano Primary Care Provider [phone] Reason for Visit * Reason Comments Med Refill Encounter Details Date Type Department Care Team (Late st Contact Info) Description 12/26/2024 Refill [facility] MEDICINE 230 [place] [address] Maritza Mariano ANP [address] [place] [address] Erectile dysfunction, unspecified erectile dysfunction type; Acute [...] Care Team (Late st Contact Info) Description 08/30/2025 1:15 PM EST Office Visit [facility] MEDICINE [address] [place] [address] Maritza Mariano ANP [address] [place] [address] 09/09/2025 1:30 PM EST Office Visit [facility] ADULT DENTAL [address] [place] [address] Rosaline [place] documented as of this encounter Visit Diagnoses Diagnosis Erectile dysfunction, unspecified erectile dysfunction type Acute midline low back pain without sciatica documented in this encounter Additional Health Concerns Assessment Noted Time PHQ-9 Depression Total Score: 13 025 1:49 PM EDT documented as of this encounter Care Teams Titrator Relationship Specialty Start Date End Date Maritza Mariano ANP [address] [place] [address] PCP - General Family Medicine 09/06/22 documented as of this encounter
--- OUTSIDE RECORDS SUMMARY | 2025-08-20 16:04 | XMS_ITS | Encounter Summary ---
Author Organization [employer] Address [address] [place] [address] Care Team Providers Care Contour Sander Name Role Phone Maritza Mariano Primary Care Provider [phone] Reason for Visit * Reason Comments Med Refill Encounter Details Date Type Department Care Team ([facility] st Contact Info) Description 07/28/2024 Refill [facility] MEDICINE [address] [place], [place] [phone] Maritza Mariano ANP 230 [place] [address] Erectile dysfunction, unspecified erectile dysfunction type Social [...] Description 08/30/2025 1:15 PM EST Office Visit [facility] MEDICINE [address] [place] [address] Maritza Mariano ANP [address] [place] [address] 09/09/2025 1:30 PM EST Office Visit [facility] DENTAL [address] [place] [address] Rosaline [place] documented as of this encounter Visit Diagnoses Diagnosis Erectile dysfunction, unspecified erectile dysfunction type documented in this encounter Additional Health Concerns Assessment Noted Time PHQ-9 Depression Total Score: 12 024 3:12 PM EDT documented as of this encounter Care Teams Contour Sander Relationship Specialty Start Date End Date Maritza Mariano ANP [address] [place] [address] PCP - General Family Medicine 09/06/22 documented as of this encounter
--- OUTSIDE RECORDS SUMMARY | 2025-08-20 16:04 | XMS_ITS | Clinical Summary ---
Author Organization [employer] Address [address] 7[address] [place] [address] Care Team Providers Care Plant Guide Name Role Phone Montserrat Maritza JARA Primary Care Provider [phone] Allergies Active Allergy Reactions Criticality Noted Date Comments Penicillins Anaphylaxis High 08/03/2022 Shellfish Allergy Wheezing High 12/15/2010 Swelling in throat if he eats lobsters or crabs Shellfish Protein-Containing Drug Products Unknown 09/02/2014 Medications Diclofenac Sodium 1 % gelIndications:C hronic neck pain Apply 2 g topically if [...] 2 MG capsule 023 Active Blood Pressure kitIndications:E ssential hypertension 1 kit in the morning. 1 kit 023 Active Azelastine HCl 137 MCG/SPRAY solutionIndicati ons:Allergic rhinitis due to other allergic trigger, unspecified seasonality SPRAY 2 SPRAY BY INTRANASAL ROUTE 2 TIMES EVERY DAY IN EACH NOSTRIL NEEDED FOR NASAL CONGESTION 30 mL 1 023 Active prazosin (Minipress) 1 MG capsule 023 Active Blood Pressure Monitoring (Omron 3 Series BP Monitor) device 023 Active risperiDONE (RisperDAL) 3 MG tabletIndication s:Major Depressive Disorder Take 3 mg by mouth in the morning and 3 mg in the evening. Active EPINEPHrine (Epipen) 0.3 MG/0.3ML injection syringeIndicatio ns:Shellfish allergy INJECT INTRAMUSCULARLY DIRECTED ON PACKAGE AND GO TO EMERGENCY ROOM 2 each 1 024 Active nicotine polacrilex (Nicorette) 2 MG lozengeIndicatio ns:Other tobacco product nicotine dependence, uncomplicated Use as directed every 1-2 hrs as needed in place of cigarette 100 lozenge 3 025 Active omega-3 acid ethyl esters (Lovaza) 1 g capsuleIndicatio ns:Hypertriglyce ridemia Take 2 capsules (2 g) by mouth 2 times daily. 120 capsule 11 025 2025 Active cetirizine (ZyrTEC) 10 MG tabletIndication s:Allergic rhinitis due to other allergic trigger, unspecified seasonality TAKE 1 TABLET BY MOUTH EVERY DAY NEEDED FOR ALLERGIES 90 tablet 1 025 Active olmesartan (BENIcar) 20 MG tabletIndication s:Primary hypertension TAKE 1 TABLET BY MOUTH EVERY DAY 90 tablet 1 025 Active montelukast (Singulair) 10 MG tabletIndication s:Mild persistent asthma without complication TAKE 1 TABLET BY MOUTH ONCE DAILY 90 tablet 1 025 Active sildenafil (Viagra) 50 MG tabletIndication s:Erectile dysfunction, unspecified erectile dysfunction type TAKE 1 TO 2 TABLETS BY MOUTH EVERY DAY NEEDED 30 TO 60 MINUTES BEFORE SEXUAL ACTIVITY 30 tablet 11 07/29/20 25 5:01 PM EST 025 Active budesonide-formo terol (Symbicort) 160-4.5 MCG/ACT inhalerIndicatio ns:Moderate persistent asthma without complication Inhale 2 puffs in the morning and at bedtime. Rinse mouth with water after use to reduce aftertaste and incidence of candidiasis. Do not swallow. 1 each 11 07/29/20 25 5:01 PM EST 025 2025 Active omeprazole (PriLOSEC) [address] capsuleIndicatio ns:Chronic GERD TAKE 1 CAPSULE BY MOUTH TWICE DAILY DO NOT BREAK, CRUSH, DISSOLVE OR CHEW 180 capsule 3 025 Active baclofen (Lioresal) 10 MG tabletIndication s:Chronic neck pain TAKE 1 TABLET BY MOUTH THREE TIMES DAILY NEEDED FOR MUSCLE SPASMS 60 tablet 1 07/26/20 25 4:22 PM EST 025 Active albuterol (Ventolin HFA) 108 (90 Base) MCG/ACT inhalerIndicatio ns:Moderate persistent asthma without complication INHALE 2 PUFFS BY MOUTH EVERY 4 TO 6 HOURS NEEDED FOR WHEEZING OR SHORTNESS OF BREATH 18 g 1 07/26/20 25 4:22 PM EST 025 Active gabapentin (Neurontin) 300 MG capsuleIndicatio ns:Chronic neck pain TAKE 1 CAPSULE BY MOUTH TWICE DAILY 60 capsule 2 025 Active gabapentin (Neurontin) 300 MG capsuleIndicatio ns:Chronic neck pain TAKE 1 CAPSULE BY MOUTH TWICE DAILY 60 capsule 2 07/26/20 25 4:22 PM EST 025 2024 Discontinued Active Problems Problem Noted Date Diagnosed Date Acute right ankle pain 01/22/2025 Sprain of right ankle 01/22/2025 Assessment & Plan (02/07/2025 5:16 PM EDT): Exam consistent with strain, due to focal and persistent pain will x-ray Advised RICE and DL bandage Activity as tolerated Return to clinic for failure to improve Personal history of traumatic brain injury 05/01 HLD (hyperlipidemia) 09/28/2022 Chronic neck pain 09/06/2022 Chronic GERD 09/06/2022 Overview (12/31/2023): Taking omeprazole BID Allergic rhinitis 09/06/2022 Chronic low back pain 09/06/2022 Mild persistent asthma 09/06/2022 Overweight 09/06/2022 Lactose intolerance 12/07/2013 Bipolar affective disorder (CMS/HCC) 11/26/2013 Anxiety 07/13/2013 Overview (09/28/2022): Patient used to go behavioral health clinic in [place] Encounters Date Type Department Care Team Description 08/18/2025 Refill [facility] MEDICINE [address] [place] [address] Maritza Mariano ANP Chronic neck pain 08/07/2025 Refill [facility] MEDICINE [address] [place] [address] Maritza Mariano ANP Chronic neck pain 07/15/2025 Refill [facility] MEDICINE [address] [place] [address] Maritza Mariano ANP Moderate persistent asthma without complication 07/11/2025 Refill [facility] MEDICINE [address] [place] [address] Maritza Mariano ANP Chronic neck pain 06/25/2025 Refill [facility] MEDICINE [address] [place] [address] Maritza Mariano ANP Moderate persistent asthma without complication 06/23/2025 11:30 AM EDT Office Visit [facility] [address] [place] [address] Pillo Hernández DMD Fracture of removable partial denture (Primary Dx) 06/22/2025 Telephone [facility] [address] [place] [address] Pillo Hernández DMD needs new appt date delivery 06/18/[address] [address] Maritza Mariano ANP 06/16/2025 1:30 PM EDT Office Visit [facility] [address] [place] [address] Pillo Hernández DMD Fracture of removable partial denture (Primary Dx) 06/01/2025 Outside Procedure [facility] OPTOMETRY [address] [place] [address] Dalton, Lindsay, OD Presbyopia (Primary Dx) 05/31/2025 3:30 PM EDT Office Visit [address] [address] Maritza Mariano ANP Hypertriglyceridemia (Primary Dx); Hyperkalemia; Moderate persistent asthma without complication; RUQ pain; Encounter for immunization; Chronic GERD 05/31/2025 Travel 05/28/2025 Telephone [facility] MEDICINE [address] [place] [address] [place] [address] Maritza Mariano ANP chartprep 05/27/2025 2:45 PM EDT Office Visit [facility] OPTOMETRY [address] [place] [address] Dalton, Lindsay, OD Regular astigmatism of both eyes (Primary Dx) 05/24/2025 Refill [facility] MEDICINE [address] [place] [address] Maritza Mariano ANP Moderate persistent asthma without complication from Last 3 Months Immunizations Immunization Administration Dates Next Due Hep B, adult 07/06/2024,02/03/2024,12/31/2023 Influenza Injectable Quadriv alant Preservative Free IIV4 MDCK 05/28/2022 Influenza injectable quadriv alent preservative free 07/12/2023 Influenza, IIV3, injectable 08/30/2014, 3,04/21/2012 Influenza, seasonal, injecta ble, preservative free 05/31/2025,09/18/2024,08/02/2015 Pfizer Covid-19 Vaccine 12+ 09/18/2024,0 02/03/2024,06/09/2021,2020 Pfizer Covid-19 Vaccine 12+ Bivalent 09/04/2022 Pneumococcal Conjugate PCV 20 10/29/2022 Tdap 12/31/2023 Social History Tobacco Use Types Packs/Day Years Used Date Smoking Tobacco: Former Cigarettes 0.5 34.3 1 989 - 12/2022 Passive Smoke Exposure: Past Smokeless Tobacco: Former Quit: 10/24/2024 Tobacco Cessation:Counseling Given: Yes Comments:Vaping 5% Alcohol Use Standard Drinks/Week Comments [...] Sign Reading Time Taken Comments Blood Pressure 132/84 05/31/2025 4:24 PM EDT Pulse 90 05/31/2025 3:16 PM EDT Temperature 36.3 C (97.4 F) 05/31/2025 3:16 PM EDT Respiratory Rate 15 05/31/2025 3:16 PM EDT Oxygen Saturation 97% 05/31/2025 3:16 PM EDT Inhaled Oxygen Concentration - - Weight 94.5 kg (208 lb 4 oz) 05/31/2025 3:16 PM EDT Height 167.6 cm (5' 6 ) 05/31/2025 3:16 PM EDT Body Mass Index 33.61 05/31/2025 3:16 PM EDT Plan of Treatment Upcoming Encounters Date Type Department Care Team (Late st Contact Info) Description 08/30/2025 1:15 PM EST Office Visit [facility] MEDICINE [address] [place] [address] Maritza Mariano ANP [address] [place] [address] 09/09/2025 1:30 PM EST Office Visit [facility] ADULT DENTAL [address] [place] [address] Rosaline Evans Health Maintenance Due Date Last Done Comments CT Colonography 1978 Colonoscopy 1978 FIT 1978 Sigmoidoscopy 1978 Alcohol/Substance Use Screening 1990 Family Planning (PISQ) 1993 Dental Oral Exam 06/17/2024 12/16/2023, 05/2023, 01/11/2023 Dental Prophylaxis 07/05/2024 01/02/2024, 01/11/2023 Dental X-Ray: Bitewings 12/16/2024 12/16/19 24, 04/18/2023, 12/14/2022 COVID-19 Vaccine ( season) 2025 09/18/2024, 02/03/2024, 09/04/2022, Additional history exists FOBT 05/12/2025 05/12/2024 Depression Monitoring 05/28/2025 11/26/2024, 025 SDOH Screening 11/26/2025 11/26/2024 Dental X-Ray: Full Mouth 12/15/2025 12/14/2022 Disability Screening 01/08/2026 01/08/2025 Tobacco Screening 06/23/2026 06/23/2025 Colorectal Cancer Screening 05/12/2027 FIT DNA/Cologuard 05/12/2027 [...] Years) and At-Risk Patients (6 to 49) Years Completed 10/29/2022 Hepatitis B Vaccines Completed 07/06/2024, 02/03/2024, 12/31/2023 Influenza Vaccine Completed 05/31/2025, , 07/12/2023, Additional history exists HIB Vaccines Aged Out [...] Procedure Name Priority Date/Time Associated Diagnosis Comments CASE PRESENTATION, DETAILED AND EXTENSIVE TREATMENT PLANNING Routine 06/23/2025 11:30 AM EDT Fracture of removable partial denture REPAIR RESIN PARTIAL DENTURE BASE, MAX Routine 06/23/2025 11:30 AM EDT Fracture of removable partial denture CASE PRESENTATION, DETAILED AND EXTENSIVE TREATMENT PLANNING Routine 06/16/2025 1:30 PM EDT Fracture of removable partial denture LIMITED ORAL EVALUATION - PROBLEM FOCUSED Routine 06/16/2025 1:30 PM EDT Fracture of removable partial denture LIPID PANEL, STANDARD Routine 01/07/2025 11:33 AM EDT Hyperlipidemia, unspecified hyperlipidemia type LAB COLOGUARD COLON CANCER SCREEN Routine 05/12/2024 10:55 AM [...] Relevant to Health Maintenance Results * (ABNORMAL) Lipid Panel, Standard (01/07/2025 11:33 AM EDT) Triglycerides 508(H) <150 mg/dL [facility] Comment:Desirable Triglyceri de: less than 150 mg/dLBorderline High Triglyceride 150-199 mg/dLHigh Triglyceride: 200-499 mg/dLVery High Triglyceride: greater than or equal to 5OO mg/dL Cholesterol 286(H) <200 mg/dL [facility] Comment:Desirable Cholestero l: less than 200 mg/dLBorderline High Cholesterol: 200-239 mg/dLHigh Cholesterol: greater than 239 mg/dL LDL Cholesterol Calculated TNP <100 mg/dL [facility] Comment:Unable to calculate the LDL. The formula of Friedwald,Atkins, and Kathrin is only valid if the triglycerides areless than 400 mg/dl. HDL Cholesterol 37(L) >40 mg/dL [facility] Comment:Desirable HDL: great er than 40 mg/dL Note: This HDL assay may give artificially low results in patients with liver disease. Blood Venous blood specimen / Unknown 01/07/2025 11:33 AM EDT 01/07/2025 1:22 PM EDT [facility] LAB BLOOD ORDERABLES Final Resul t [facility] [address] [place], [place] [phone] * Cologuard?? colon cancer screening (05/12/2024 10:55 AM EDT) Cologuard Result Negative Negative 05/20/20 9:22 AM EDT [facility] (CLIA #:[id number]) Comment: NEGATIVE TEST RESULT. A negative Cologuard result indicates a low likelihood that a colorectal cancer (CRC) or advanced adenoma (adenomatous polyps with more advanced pre-malignant features) is present. The chance that a person with a negative Cologuard test has a colorectal cancer is less than 1 in 1500 (negative predictive value >99.9%) or has an advanced adenoma is less than 5.3% (negative predictive value 94.7%). These data are based on a prospective cross-sectional study of 10,000 individuals at average risk for colorectal cancer who were screened with both Cologuard and colonoscopy. (Deja Atwood et al, N Engl J Med 2014;370(14):5622-9360) The normal value (reference range) for this assay is negative. COLOGUARD RE-SCREENING RECOMMENDATION: Periodic colorectal cancer screening is an important part of preventive healthcare for asymptomatic individuals at average risk for colorectal cancer. Following a negative Cologuard result, the [place] Cancer Society and U.S. Multi-Society Task Force screening guidelines recommend a Cologuard re-screening interval of 3 years. References: [place] [employer] Guideline for Colorectal Cancer Screening: https://www.cancer.org/cancer/owkoi-jyrpke-xwfagb/mayvbissm-prwoemxkw-uqbbwey/ac s-rec ommendations.html.; Sabas DK, Abdi BROWN, Destiny CastroK, Colorectal Cancer Screening: Recommendations for Physicians and Patients from the U.S. Multi-Society Task Force on Colorectal Cancer Screening , Am J Gastroenterology 2017; 112:4750-8486. TEST DESCRIPTION: Composite algorithmic analysis of stool DNA-biomarkers with hemoglobin immunoassay. Quantitative values of individual biomarkers are not [...] (Deja Peter al, N Engl J Med 2014;370(14):6145-8171.) Cologuard may produce a false negative or false positive result (no colorectal cancer or precancerous polyp present at colonoscopy follow up). A negative Cologuard test result does not guarantee the absence of CRC or advanced adenoma (pre-cancer). The current Cologuard screening interval is every 3 years. ([place] Cancer Society and U.S. Multi-Society Task Force). Cologuard performance data in a 10,000 patient pivotal study using colonoscopy as the reference method can be accessed at the following location: www.[employer]/results. Additional description of the Cologuard test process, warnings and precautions can be found at www.Rentifyrd.com. Stool specimen (specimen) 05/12/2024 10:55 AM EDT 05/13/2024 2:41 PM EDT [facility]ST[facility] ORDERA BLES Final Result [facility] (CLIA #:[id number]) [place] [address], * Hepatitis C Antibody with Reflex to HCV, RNA, Quantitative, Real-Time PCR (10/29/2022 12:14 PM EST) Hepatitis C Antibody NON-REACT FRANSICO NON-REACT FRANSICO [employer] Index 0.03 <1.00 [facility] Comment: HCV antibody was non-reactive. There is no laboratory evidence of HCV infection. In most cases, no further action is required. However, if recent HCV exposure is suspected, a test for HCV RNA (test code 26998) is suggested. For additional information please refer to http://education.Netology/faq/GNF62l2 (This link is being provided for informational/ educational purposes only.) Blood Venous blood specimen / Unknown 10/29/2022 12:14 PM EST 10/29/2022 12:15 PM EST Narrative [facility] - 11/06/2022 7:52 PM EDT FASTING:NO FASTING: NO Maritza Mariano [facility] LAB BLOOD ORDERABLES Final Resul t Performing Organization Address [facility] de Phone Number [address], [facility] [place] [address] [facility] [address] [place] [phone] * HIV-1/2 Antigen and Antibodies, Fourth Generation, with Reflexes (10/29/2022 12:14 PM EST) Pathologist [facility] HIV Antigen/Antibody, 4th Generation NON-REAC TIVE NON-REAC TIVE [facility] [facility] Comment: HIV-1 antigen and HIV-1/HIV-2 antibodies were not detected. There is no laboratory evidence of HIV infection. PLEASE NOTE: This information has been disclosed to you from records whose confidentiality may be protected by state law. If your state requires such protection, then the state law prohibits you from making any further disclosure of the information without the specific written consent of the person to whom it pertains, or as otherwise permitted by law. A general authorization for the release of medical or other information is NOT sufficient for this purpose. For additional information please refer to http://education.[employer].RushFiles/faq/BQC392 (This link is being provided for informational/ educational purposes only.) The performance of this assay has not been clinically validated in patients less than 2 years old. Blood Venous blood specimen / Unknown 10/29/2022 12:14 PM EST 10/29/2022 12:15 PM EST Narrative [facility] - 11/06/2022 7:52 PM EDT FASTING:NO FASTING: NO us Maritza JARA LAB BLOOD ORDERABLES Final Resul t Performing Organization Address [facility] Co de Phone Number [address], [place] [address] [facility] [address] [place] [address] from Last 3 Months or Most Recently Relevant to Health Maintenance [place] [address] [place] [address] C3 DENTAL-[facility] MEDICAID STAND ADULT [facility] C3 Care Teams Plant Guide Relationship Specialty Start Date End Date Maritza Mariano ANP [address] [place] [id number] PCP - General Family Medicine 09/06/22
--- OUTSIDE RECORDS SUMMARY | 2025-08-20 16:04 | XMS_ITS | Encounter Summary ---
Author Organization [employer] Address [address] [place] [address] Care Team Providers Care Taxi Proprietor Name Role Phone Montserrat Maritza JARA Primary Care Provider [phone] Reason for Visit * Reason Onset Date Comments Med Refill 02/20/2024 Encounter Details Date Type Department Care Team (Late st Contact Info) Description 02/20/2024 Refill [facility] MEDICINE [address] [place] [address] Katerin Phan MD [address] [place] [address] Chronic neck pain Social History Tobacco Use [...] Description 08/30/2025 1:15 PM EST Office Visit [facility] MEDICINE [address] [place] [address] Maritza Mariano ANP [address] [place] [address] 09/09/2025 1:30 PM EST Office Visit [facility] ADULT DENTAL [address] [place] [address] Rosaline Evans documented as of this encounter Visit Diagnoses Diagnosis Chronic neck pain Cervicalgia documented in this encounter Additional Health Concerns Assessment Noted Time PHQ-9 Depression Total Score: 12 024 3:12 PM EDT documented as of this encounter Care Teams Taxi Proprietor Relationship Specialty Start Date End Date Maritza Mariano ANP [address] [place] [phone] PCP - General Family Medicine 09/06/22 documented as of this encounter
--- OUTSIDE RECORDS SUMMARY | 2025-08-20 16:04 | XMS_ITS | Encounter Summary ---
Author Organization [employer] Address [address] [place] [address] Care Team Providers Care Embedded Software Test Engineer Name Role Phone Maritza Mariano Primary Care Provider [phone] Reason for Visit * Reason Onset Date Comments Med Refill 11/08/2022 Encounter Details Date Type Department Care Team (Late st Contact Info) Description 11/08/2022 Telephone [facility] MEDICINE [address] [place] [address] Maritza Mariano ANP [address] [place] [address] Med Refill Social History Tobacco Use Types Packs/Day Years Used Date Smoking Tobacco: Every Day Cigarettes 0.5 37 Started: 1990 Passive Smoke Exposure: Past Smokeless [...] 10:53 AM EDT Medication was sent to [id number] on 09/06/22 Qty: 90 with 1 refill. * Telephone Encounter - Bijal Ortiz - 11/08/2022 10:23 AM EDT Tc from pt requesting med refill for medication omeprazole OTC (PriLOSEC OTC) 20 MG EC tablet. documented in this encounter Plan of Treatment Upcoming Encounters Date Type Department Care Team (Late st Contact Info) Description 08/30/2025 1:15 PM EST Office Visit [facility] MEDICINE [address] [place] [address] Maritza Mariano ANP [address] [place] [phone] 09/09/2025 1:30 PM EST Office Visit [facility] ADULT DENTAL [address] [place] [address] Rosaline Evans documented as of this encounter Visit Diagnoses Not on filedocumented in this encounter Care Teams Embedded Software Test Engineer Relationship Specialty Start Date End Date Maritza Mariano ANP [address] [place] [phone] PCP - General Family Medicine 09/06/22 documented as of this encounter
--- OUTSIDE RECORDS SUMMARY | 2025-08-20 16:04 | XMS_ITS | Encounter Summary ---
Author Organization [employer] Address [address] [place] [address] Care Team Providers Care Wood Model Maker Name Role Phone Maritza Mariano Primary Care Provider [phone] Reason for Visit * Reason Onset Date Comments Appointment Request 11/23/2024 Encounter Details Date Type Department Care Team ([facility] st Contact Info) Description 11/23/2024 Telephone [facility] MEDICINE [address] [place] [address] Maritza Mariano ANP [address] [place] [address] Appointment Request Social History Tobacco Use Types [...] sick on site appointment. Please return call [phone] documented in this encounter Plan of Treatment Upcoming Encounters Date Type Department Care Team (Late st Contact Info) Description 08/30/2025 1:15 PM EST Office Visit [facility] MEDICINE [address] [place] [address] Maritza Mariano ANP [address] [place] [address] 09/09/2025 1:30 PM EST Office Visit [facility] ADULT DENTAL [address] [place] [address] Rosaline Evans documented as of this encounter Visit Diagnoses Not on filedocumented in this encounter Additional Health Concerns Assessment Noted Time PHQ-9 Depression Total Score: 12 12/30/ 024 3:12 PM EDT documented as of this encounter Care Teams Wood Model Maker Relationship Specialty Start Date End Date Maritza Mariano ANP [address] [place] [address] PCP - General Family Medicine 09/06/22 documented as of this encounter
--- OUTSIDE RECORDS SUMMARY | 2025-08-20 16:04 | XMS_ITS | Encounter Summary ---
Author Organization [facility] [employer] Address [address] [place] [address] Care Team Providers Care Dental Floss Packer Name Role Phone Maritza Mariano Primary Care Provider Reason for Visit * Reason Comments Med Refill Encounter Details Date Type Department Care Team ([facility] st Contact Info) Description 04/10/2025 Refill [facility] MEDICINE [address] [place], [place] [phone] Maritza Mariano ANP [address] [place] [address] Erectile dysfunction, unspecified erectile dysfunction type Social [...] Description 08/30/2025 1:15 PM EST Office Visit [facility] MEDICINE [address] [place] [address] Maritza Mariano ANP [address] [place] [address] 09/09/2025 1:30 PM EST Office Visit [facility] ADULT DENTAL [address] [place] [address] Rosaline Evans documented as of this encounter Visit Diagnoses Diagnosis Erectile dysfunction, unspecified erectile dysfunction type documented in this encounter Additional Health Concerns Assessment Noted Time PHQ-9 Depression Total Score: 13 025 1:49 PM EDT documented as of this encounter Care Teams Dental Floss Packer Relationship Specialty Start Date End Date Maritza Mariano ANP [address] [place] [phone] PCP - General Family Medicine 09/06/22 documented as of this encounter
--- OUTSIDE RECORDS SUMMARY | 2025-08-20 16:04 | XMS_ITS | Encounter Summary ---
Author Organization [employer] Address [address] [facility] [address] 7t [place] [address] Care Team Providers Care Senior Brand Manager Name Role Phone Maritza Mariano Primary Care Provider [phone] Reason for Visit * Reason Comments Med Refill Encounter Details Date Type Department Care Team ([facility] st Contact Info) Description 05/10/2025 Refill [facility] MEDICINE 230 [place], [place] [phone] Maritza Mariano ANP 230 [place] [address] Moderate persistent asthma without complication Social History [...] 1:15 PM EST Office Visit [facility] MEDICINE 230 [place] [address] Maritza Mariano ANP 230 [place] [address] 09/09/2025 1:30 PM EST Office Visit [facility] CHC ADULT DENTAL [address] [place] [address] Rosaline Evans documented as of this encounter Visit Diagnoses Diagnosis Moderate persistent asthma without complication documented in this encounter Additional Health Concerns Assessment Noted Time PHQ-9 Depression Total Score: 13 025 1:49 PM EDT documented as of this encounter Care Teams Senior Brand Manager Relationship Specialty Start Date End Date Maritza Mariano ANP [address] [place] [address] PCP - General Family Medicine 09/06/22 documented as of this encounter
--- OUTSIDE RECORDS SUMMARY | 2025-08-20 16:04 | XMS_ITS | Encounter Summary ---
Author Organization [employer] Address [address] [facility] [address] 7t [place] [address] Care Team Providers Care Landfill Grader Name Role Phone Maritza Mariano Primary Care Provider [phone] Reason for Visit * Reason Onset Date Comments Medication Question 05/01/2023 sildenafil ( Viagra) 50 MG tablet Encounter Details Date Type Department Care Team (Late st Contact Info) Description 05/01/2023 Telephone [facility] MEDICINE 230 [place] [address] Maritza Mariano ANP 230 [place] [address] Medication Question (sildenafil (Viagra) 50 MG tablet//) [...] Description 08/30/2025 1:15 PM EST Office Visit [facility] MEDICINE 230 [place] [address] Maritza Mariano ANP 230 [place] [address] 09/09/2025 1:30 PM EST Office Visit [facility] CHC ADULT DENTAL [address] [place] [address] Rosaline Evans documented as of this encounter Visit Diagnoses Not on filedocumented in this encounter Care Teams Landfill Grader Relationship Specialty Start Date End Date Maritza Mariano ANP [address] [place] [address] PCP - General Family Medicine 09/06/22 documented as of this encounter
--- OUTSIDE RECORDS SUMMARY | 2025-08-20 16:04 | XMS_ITS | Encounter Summary ---
Author Organization [employer] Address [address] [facility] [address] 7t [place] [address] Care Team Providers Care Radiology Rn Name Role Phone Maritza Mariano Primary Care Provider [phone] Reason for Visit * Reason Comments Med Refill Encounter Details Date Type Department Care Team ([facility] st Contact Info) Description 12/04/2023 Refill [facility] MEDICINE 230 [place], [place] [phone] Maritza Mariano ANP 230 [place] [address] Erectile dysfunction, unspecified erectile dysfunction type Social [...] Description 08/30/2025 1:15 PM EST Office Visit [facility] MEDICINE 230 [place] [address] Maritza Mariano ANP [address] [place] [address] 09/09/2025 1:30 PM EST Office Visit [facility] CHC ADULT DENTAL [address] [place] [address] Rosaline Evans documented as of this encounter Visit Diagnoses Diagnosis Erectile dysfunction, unspecified erectile dysfunction type documented in this encounter Care Teams Radiology Rn Relationship Specialty Start Date End Date Maritza Mariano ANP [address] [place] [address] PCP - General Family Medicine 09/06/22 documented as of this encounter
--- OUTSIDE RECORDS SUMMARY | 2025-08-20 16:04 | XMS_ITS | Encounter Summary ---
Author Organization [employer] Address [address] [facility] [address] 7t [place] [address] Care Team Providers Care House Cleaner Supervisor Name Role Phone Maritza Mariano Primary Care Provider [phone] Reason for Visit * Reason Comments Med Refill Encounter Details Date Type Department Care Team (Late st Contact Info) Description 12/21/[address] [facility] MEDICINE 230 [place] [address] Maritza Mariano ANP 230 [place] [address] Erectile dysfunction, unspecified erectile dysfunction type; Allergic [...] Description 08/30/2025 1:15 PM EST Office Visit [facility] MEDICINE 230 [place] [address] Maritza Mariano ANP 230 [place] [address] 09/09/2025 1:30 PM EST Office Visit [facility] CHC ADULT DENTAL [address] [place] [address] Rosaline Evans documented as of this encounter Visit Diagnoses Diagnosis Erectile dysfunction, unspecified erectile dysfunction type Allergic rhinitis due to other allergic trigger, unspecified seasonality documented in this encounter Care Teams House Cleaner Supervisor Relationship Specialty Start Date End Date Maritza Mariano ANP [address] [place] [address] PCP - General Family Medicine 09/06/22 documented as of this encounter
--- OUTSIDE RECORDS SUMMARY | 2025-08-20 16:04 | XMS_ITS | Encounter Summary ---
Author Organization [employer] Address [address] [facility] [address] 7t [place] [address] Care Team Providers Care Bead Forming Machine Set Up Operator Name Role Phone Maritza Mariano Primary Care Provider [phone] Reason for Visit * Reason Comments Med Refill Encounter Details Date Type Department Care Team ([facility] st Contact Info) Description 03/22/2025 Refill [facility] MEDICINE 230 [place], [place] [phone] Maritza Mariano ANP 230 [place] [address] Moderate persistent asthma without complication Social History [...] Description 08/30/2025 1:15 PM EST Office Visit [facility] MEDICINE 230 [place] [address] Maritza Mariano ANP 230 [place] [address] 09/09/2025 1:30 PM EST Office Visit [facility] CHC ADULT DENTAL [address] [place] [address] Rosaline Evans documented as of this encounter Visit Diagnoses Diagnosis Moderate persistent asthma without complication documented in this encounter Additional Health Concerns Assessment Noted Time PHQ-9 Depression Total Score: 13 025 1:49 PM EDT documented as of this encounter Care Teams Bead Forming Machine Set Up Operator Relationship Specialty Start Date End Date Maritza Mariano ANP [address] [place] [address] PCP - General Family Medicine 09/06/22 documented as of this encounter
--- OUTSIDE RECORDS SUMMARY | 2025-08-20 16:04 | XMS_ITS | Encounter Summary ---
Author Organization [employer] Address [address] [facility] [address] 7t [place] [address] Care Team Providers Care Commercial Assistant Name Role Phone Maritza Mariano Primary Care Provider Reason for Visit * Reason Comments Med Refill Encounter Details Date Type Department Care Team ([facility] st Contact Info) Description 09/09/2024 Refill [facility] MEDICINE 230 [place], [place] [phone] Maritza Mariano ANP 230 [place] [address] Erectile dysfunction, unspecified erectile dysfunction type Social [...] Description 08/30/2025 1:15 PM EST Office Visit [facility] MEDICINE 230 [place] [address] Maritza Mariano ANP 230 [place] [address] 09/09/2025 1:30 PM EST Office Visit [facility] CHC ADULT DENTAL [address] [place] [address] Rosaline Evans documented as of this encounter Visit Diagnoses Diagnosis Erectile dysfunction, unspecified erectile dysfunction type documented in this encounter Additional Health Concerns Assessment Noted Time PHQ-9 Depression Total Score: 12 024 3:12 PM EDT documented as of this encounter Care Teams Commercial Assistant Relationship Specialty Start Date End Date Maritza Mariano ANP [address] [place] [address] PCP - General Family Medicine 09/06/22 documented as of this encounter
--- OUTSIDE RECORDS SUMMARY | 2025-08-20 16:04 | XMS_ITS | Encounter Summary ---
Author Organization [employer] Address [address] [facility] [address] 7t [place] [address] Care Team Providers Care Streetcar Starter Name Role Phone Maritza Mariano Primary Care Provider [phone] Encounter Details Date Type Department Care Team (Late st Contact Info) Description 01/25/2025 Orders Only [facility] 230 [place], [place] [phone] Maritza Mariano ANP 230 [place] [address] Hyperkalemia (Primary Dx) Social History Tobacco Use [...] Description 08/30/2025 1:15 PM EST Office Visit [facility] MEDICINE 230 [place] [address] Maritza Mariano ANP 230 [place] [address] 09/09/2025 1:30 PM EST Office Visit [facility] ADULT DENTAL [address] [place] [address] Rosaline Evans Scheduled Orders Name Type Priority Associated Diagnoses Orde r Schedule Basic Metabolic Panel Lab Routine Hyperkalemia Expected: 01/25/2025 (Approximate), Expires: 01/25/2026 Magnesium Lab Routine Hyperkalemia Expected: 01/25/2025, Expires: 01/25/2026 documented as of this encounter Visit Diagnoses Diagnosis Hyperkalemia- Primary Hyperpotassemia documented in this encounter Additional Health Concerns Assessment Noted Time PHQ-9 Depression Total Score: 13 025 1:49 PM EDT documented as of this encounter Care Teams Streetcar Starter Relationship Specialty Start Date End Date Maritza Mariano ANP [address] [place] [address] PCP - General Family Medicine 09/06/22 documented as of this encounter
--- OUTSIDE RECORDS SUMMARY | 2025-08-20 16:04 | XMS_ITS | Encounter Summary ---
Author Organization [employer] Address [address] [facility] [address] [place] [address] Care Team Providers Care Superintendent Oil Well Services Name Role Phone Maritza Mariano Primary Care Provider [phone] Reason for Visit * Reason Comments Med Refill Encounter Details Date Type Department Care Team (Late st Contact Info) Description 08/07/2025 Refill [facility] MEDICINE 230 [place], [place] [phone] Maritza Mariano ANP 230 [place] [address] Chronic neck pain Social History Tobacco Use Types Packs/Day Years Used Date Smoking Tobacco: Former Cigarettes 0.5 34.3 1 989 - 12/2022 Passive Smoke Exposure: Past Smokeless Tobacco: Former Quit: 10/24/2024 Comments:Vaping 5% Alcohol Use Standard Drinks/Week Comments [...] EST Office Visit [facility] MEDICINE 230 [place] [address] Maritza Mariano ANP 230 [place] [address] 09/09/2025 1:30 PM EST Office Visit [facility] CHC ADULT DENTAL [address] [place] [address] Rosaline Evans documented as of this encounter Visit Diagnoses Diagnosis Chronic neck pain Cervicalgia documented in this encounter Additional Health Concerns Assessment Noted Time PHQ-9 Depression Total Score: 13 025 1:49 PM EDT documented as of this encounter Care Teams Superintendent Oil Well Services Relationship Specialty Start Date End Date Maritza Mariano ANP [address] [place] [address] PCP - General Family Medicine 09/06/22 documented as of this encounter
--- OUTSIDE RECORDS SUMMARY | 2025-08-20 16:04 | XMS_ITS | Encounter Summary ---
Author Organization [employer] Address [address] [facility] [address] 7t [place] [address] Care Team Providers Care Steamboat Inspector Name Role Phone Maritza Mariano Primary Care Provider [phone] Reason for Visit * Reason Comments Med Refill Encounter Details Date Type Department Care Team (Late st Contact Info) Description 08/18/2025 Refill [facility] MEDICINE 230 [place], [place] [phone] Maritza Mariano ANP 230 [place] [address] Chronic neck pain Social History Tobacco Use [...] Description 08/30/2025 1:15 PM EST Office Visit [facility] MEDICINE 230 [place] [address] Maritza Mariano ANP 230 [place] [address] 09/09/2025 1:30 PM EST Office Visit [facility] CHC ADULT DENTAL [address] [place] [address] Rosaline Evans documented as of this encounter Visit Diagnoses Diagnosis Chronic neck pain Cervicalgia documented in this encounter Additional Health Concerns Assessment Noted Time PHQ-9 Depression Total Score: 13 025 1:49 PM EDT documented as of this encounter Care Teams Steamboat Inspector Relationship Specialty Start Date End Date Maritza Mariano ANP [address] [place] [address] PCP - General Family Medicine 09/06/22 documented as of this encounter
--- OUTSIDE RECORDS SUMMARY | 2025-08-20 16:04 | XMS_ITS | Encounter Summary ---
Author Organization [employer] Address [address] [facility] [address] 7t [place] [address] Care Team Providers Care Sap Technical Architect Name Role Phone Maritza Mariano Primary Care Provider [phone] Encounter Details Date Type Department Care Team (Late st Contact Info) Description 09/04/2022 Orders Only [facility] MEDICINE [address] [place] [address] [phone] Modesta Moore LPN Social History Tobacco Use Types Packs/Day Years Used Date Smoking Tobacco: Every Day Cigarettes 0.5 37 Started: 1988 Passive Smoke Exposure: Current Smokeless [...] Office Visit [facility] MEDICINE [address] [place] [address] [phone] Maritza Mariano ANP 230 [place], [place] [phone] 09/09/2025 1:30 PM EST Office Visit [facility] ADULT DENTAL [address] [place] [address] Rosaline Evans documented as of this encounter Visit Diagnoses Not on filedocumented in this encounter Care Teams Sap Technical Architect Relationship Specialty Start Date End Date Maritza Mariano ANP 230 [place] [address] PCP - General Family Medicine 09/06/22 documented as of this encounter
--- OUTSIDE RECORDS SUMMARY | 2025-08-20 16:04 | XMS_ITS | Encounter Summary ---
Author Organization [employer] Address [address] [facility] [address] 7t [place] [address] Care Team Providers Care Mathematician Name Role Phone Montserrat Maritza JARA Primary Care Provider Reason for Visit * Reason Onset Date Comments needs new appt date delivery 06/22/2025 Encounter Details Date Type Department Care Team (Late st Contact Info) Description 06/22/2025 Telephone [facility] CHC ADULT DENTAL [address] [place], [place] [phone] Pillo Hernández, DMD [address] [place] [address] needs new appt date delivery Social History Tobacco Use Types Packs/Day Years [...] * Telephone Encounter - Meghna Lange - 06/22/2025 3:07 PM EDT Patient called in stating he was not going to make it in to todays appointment due to another appointment he had. Needs new date and time to come in for delivery DR documented in this encounter Plan of Treatment Upcoming Encounters Date Type Department Care Team (Late st Contact Info) Description 08/30/2025 1:15 PM EST Office Visit [facility] MEDICINE 230 [place] [address] Maritza Mariano ANP 230 [place] [address] 09/09/2025 1:30 PM EST Office Visit [facility] CH[facility] ADULT DENTAL [address] [place] [address] Rosailne Evans documented as of this encounter Visit Diagnoses Not on filedocumented in this encounter Additional Health Concerns Assessment Noted Time PHQ-9 Depression Total Score: 13 025 1:49 PM EDT documented as of this encounter Care Teams Mathematician Relationship Specialty Start Date End Date Maritza Mariano ANP 230 [place] [address] PCP - General Family Medicine 09/06/22 documented as of this encounter
--- OUTSIDE RECORDS SUMMARY | 2025-08-20 16:04 | XMS_ITS | Encounter Summary ---
Author Organization [employer] Address [address] [facility] [address] 7t [place] [address] Care Team Providers Care Nutrition Counselor Name Role Phone Mariano Maritza JARA Primary Care Provider [phone] Encounter Details Date Type Department Care Team (Late st Contact Info) Description 12/09/2023 Orders Only [facility] CHC MED & PEDS 505 [place], [place] [phone] Billy Lux MD 505 [place] [address] Moderate persistent asthma without complication Social History [...] Description 08/30/2025 1:15 PM EST Office Visit [facility] MEDICINE [address] [place] [address] Maritza Mariano ANP [address] [place] [address] 09/09/2025 1:30 PM EST Office Visit [facility] CHC ADULT DENTAL [address] [place] [address] Rosaline Evans documented as of this encounter Visit Diagnoses Diagnosis Moderate persistent asthma without complication documented in this encounter Care Teams Nutrition Counselor Relationship Specialty Start Date End Date Maritza Mariano ANP [address] [place] [address] PCP - General Family Medicine 09/06/22 documented as of this encounter
--- OUTSIDE RECORDS SUMMARY | 2025-08-20 16:04 | XMS_ITS | Encounter Summary ---
Author Organization [employer] Address [address] [facility] [address] [address]t [place] [address] Care Team Providers Care Receiving Teller Name Role Phone Maritza Mariano Primary Care Provider Reason for Visit * Reason Comments Med Refill Encounter Details Date Type Department Care Team (Late st Contact Info) Description 06/25/2025 Refill [facility] MEDICINE 230 [place] [address] Maritza Mariano ANP 230 [place] [address] Moderate persistent asthma without complication Social History [...] Description 08/30/2025 1:15 PM EST Office Visit [facility] MEDICINE 230 [place] [address] Maritza Mariano ANP 230 [place] [address] 09/09/2025 1:30 PM EST Office Visit [facility] CHC ADULT DENTAL [address] [place] [address] Rosaline Evans documented as of this encounter Visit Diagnoses Diagnosis Moderate persistent asthma without complication documented in this encounter Additional Health Concerns Assessment Noted Time PHQ-9 Depression Total Score: 13 025 1:49 PM EDT documented as of this encounter Care Teams Receiving Teller Relationship Specialty Start Date End Date Maritza Mariano ANP [address] [place] [address] PCP - General Family Medicine 09/06/22 documented as of this encounter
--- OUTSIDE RECORDS SUMMARY | 2025-08-20 16:04 | XMS_ITS | Encounter Summary ---
Author Organization [employer] Address [address] [facility] [address] 7t [place] [address] Care Team Providers Care Consulting Technical Director Name Role Phone Montserrat Maritza JARA Primary Care Provider [phone] Reason for Visit * Reason Onset Date Comments case back from lab 02/07/2023 Encounter Details Date Type Department Care Team (Late st Contact Info) Description 02/07/2023 Telephone [facility] ADULT DENTAL [address] [place] [address] Arian Sandhu, DDS [address] [place] [address] case back from lab Social History Tobacco [...] Description 08/30/2025 1:15 PM EST Office Visit [facility] MEDICINE 230 [place] [address] Maritza Mariano ANP 230 [place], [place] [phone] 09/09/2025 1:30 PM EST Office Visit [facility] CHC ADULT DENTAL [address] [place] [address] Rosaline Evans documented as of this encounter Visit Diagnoses Not on filedocumented in this encounter Care Teams Consulting Technical Director Relationship Specialty Start Date End Date Maritza Mariano ANP [address] [place] [address] PCP - General Family Medicine 09/06/22 documented as of this encounter
--- OUTSIDE RECORDS SUMMARY | 2025-08-20 16:04 | XMS_ITS | Encounter Summary ---
Author Organization [employer] Address [address] [facility] [address] 7t [place] [address] Care Team Providers Care Regional Company Truck Driver Name Role Phone Maritza Mariano Primary Care Provider [phone] Reason for Visit * Reason Onset Date Comments Appointment Request 01/24/2024 Encounter Details Date Type Department Care Team ([facility] st Contact Info) Description 01/24/2024 Telephone [facility] MEDICINE 230 [place] [address] Maritza Mariano ANP 230 [place] [address] Appointment Request Social History Tobacco Use Types [...] Description 08/30/2025 1:15 PM EST Office Visit [facility] MEDICINE 230 [place] [address] Maritza Mariano ANP 230 [place] [address] 09/09/2025 1:30 PM EST Office Visit [facility] CHC ADULT DENTAL 505 [place] [address] Rosaline Evans documented as of this encounter Visit Diagnoses Not on filedocumented in this encounter Additional Health Concerns Assessment Noted Time PHQ-9 Depression Total Score: 12 024 3:12 PM EDT documented as of this encounter Care Teams Regional Company Truck Driver Relationship Specialty Start Date End Date Maritza Mariano ANP [address] [place] [address] PCP - General Family Medicine 1/12/23 documented as of this encounter
--- OUTSIDE RECORDS SUMMARY | 2025-08-20 16:05 | XMS_ITS | Encounter Summary ---
Author Organization [employer] Address [address] [facility] [address] 7t [place] [address] Care Team Providers Care Locomotive Firer Name Role Phone Maritza Mariano Primary Care Provider [phone] Reason for Visit * Reason Comments Med Refill Encounter Details Date Type Department Care Team ([facility] st Contact Info) Description 05/25/2024 Refill [facility] MEDICINE 230 [place], [place] [phone] Maritza Mariano ANP 230 [place] [address] Erectile dysfunction, unspecified erectile dysfunction type Social [...] 1:15 PM EST Office Visit [facility] MEDICINE 230 [place] [address] Maritza Mariano ANP 230 [place] [address] 09/09/2025 1:30 PM EST Office Visit [facility] CHC ADULT DENTAL [address] [place] [address] Rosaline Evans documented as of this encounter Visit Diagnoses Diagnosis Erectile dysfunction, unspecified erectile dysfunction type documented in this encounter Additional Health Concerns Assessment Noted Time PHQ-9 Depression Total Score: 12 024 3:12 PM EDT documented as of this encounter Care Teams Locomotive Firer Relationship Specialty Start Date End Date Maritza Mariano ANP [address] [place] [address] PCP - General Family Medicine 09/06/22 documented as of this encounter
--- OUTSIDE RECORDS SUMMARY | 2025-08-20 16:05 | XMS_ITS | Encounter Summary ---
Author Organization [employer] Address [address] [place] [address] Care Team Providers Care Stencil Cutter Machine Name Role Phone Maritza Mariano Primary Care Provider [phone] Reason for Visit * Reason Comments Med Refill Encounter Details Date Type Department Care Team ([facility] st Contact Info) Description 05/25/[address] [facility] MEDICINE [address], [place] [phone] Maritza Mariano ANP [address] [place] [address] Erectile dysfunction, unspecified erectile dysfunction type Social [...] 1:15 PM EST Office Visit [facility] MEDICINE [address] [place] [address] Maritza Mariano ANP [address] [place] [address] 09/09/2025 1:30 PM EST Office Visit [facility] ADULT D[facility]AL [address] [place] [address] Rosaline Evans documented as of this encounter Visit Diagnoses Diagnosis Erectile dysfunction, unspecified erectile dysfunction type documented in this encounter Additional Health Concerns Assessment Noted Time PHQ-9 Depression Total Score: 12 024 3:12 PM EDT documented as of this encounter Care Teams Stencil Cutter Machine Relationship Specialty Start Date End Date Maritza Mariano ANP [address] [place] [id number] PCP - General Family Medicine 09/06/22 documented as of this encounter
[2025-08-20 16:45] VITALS: PULSE 77
== END 2025-08-20 16:01 | disposition home or self-care (01) ==
LOC: HO.RESP 16:00
PROVIDERS: PCP Internal Medicine Geriatric Medicine; Visit Provider Nurse Practitioner Primary Care
DX: J45.40 Moderate persistent asthma, uncomplicated (principal)
CPT/HCPCS: 94060; 94640; 94727; 94729

== ENCOUNTER → 2025-08-20 16:04 | Outpatient (BNV) | payer MEDICAID, SELFPAY | PROVIDERS: PCP Internal Medicine Geriatric Medicine; Visit Provider Hospitalist | DX: J45.909 Unspecified asthma, uncomplicated (principal) | CPT/HCPCS: 94060; 94727; 94729 ==